=== PATIENT | male | born 1965 | race Caucasian/White ===

== ENCOUNTER 2016-03-27 13:17 | Emergency (ER) | payer BC ==
[~2016-03-27] VITALS: Ht 180.3 cm; Wt 149.8 kg
[~2016-03-27 13:17] MED LIST: NEOM1SUS21 OT; OMEG10007 PO; ONDA4TAB46 PO; TRAM-10 PO
[2016-03-27 13:33] VITALS: TEMP 37.2; Ht 180.3 cm; Wt 149.8 kg
[2016-03-27 14:15] LABS: BASO % 0.3 %; BASO ABS # 0.03 K/uL (0-0.2); COMPLETE YES; EOS % 6.4 %; HEMATOCRIT 45.1 % (42-52); IG% 0.4 %; LYMPH % 23.8 %; MEAN CELL VOLUME 93.4 fL (80-100); MEAN CORPUSCULAR HEMOGLOBIN 31.9 pg (25-34); MEAN CORPUSCULAR HGB CONC 34.1 g/dl (32-36); MEAN PLATELET VOLUME 9.9 fL (7.4-10.4); MONO % 5.4 %; NEUT % 63.7 %; PLATELET COUNT 278 K/uL (130-400); RED BLOOD COUNT 4.83 M/uL (4.7-6.1); WHITE BLOOD COUNT 9.68 K/uL (4.8-10.8)
[2016-03-27] MEDS ORDERED: LACTATED RINGER'S 1000ML 1,000 ML IV SCH (14:15)
--- NOTE | 2016-03-27 14:19 | EMERGENCY ROOM VISIT NOTE ---
History Report prepared by Tomasz: Carlos Galvan Under the Supervision of: Dr. Herve Ortiz D.O. First contact with patient: 13:58 Chief Complaint: VOMITING Stated Complaint: VOMITING,DIARRHEA Nursing Triage Summary: pt reports intestinal virus for 5 days has been taking imodium diarrhea will not stop History of Present Illness The patient is a 51 year old male who presents to the Emergency Room with complaints of persistent diarrhea beginning one week prior to arrival. He associates increased belching, abdominal pain, abdominal bloating, nausea, and vomiting with today's symptoms. The patient states he has tried taking Imodium without relief. He notes his episodes of diarrhea occurs twenty minutes after eating. The patient states he experiences episodes of diarrhea after drinking water or food. He notes he ate two plates of shrimp with rice yesterday at a [employer], and once he got home, he experienced diarrhea. His stool is described as "striaght liquid". The patient states he ate a handful of rice, 16 oz coffee, and a vitamin today. He notes he could not try to get a hold of his doctor today. The patient states he was on Keflex a couple of weeks ago. He notes he tried fasting by withholding water and food for two days earlier in the week. The patient he began feeling dehydrated, so he resumed his normal diet. Pt denies LOC, headache, fevers, chills, diaphoresis, visual changes, neck pain, chest pain, breathing difficulties, back pain, melena, hematochezia, urinary symptoms, numbness, weakness, lymphadenopathy, rash, or other complaints. Source of History: patient Onset: one week [employer] Position: other (global) Timing: other (persistent) Associated Symptoms: + abdominal pain, + diarrhea, + nausea, + vomiting Note: Associated symptoms: abdominal bloating, increased belching. Review of Systems See HPI for pertinent positives and negatives. A total of ten systems were reviewed and were otherwise negative. Past Medical & Surgical Medical Problems: (1) Herniated disc (2) Hypertension Nos (3) Osteoarthritis (4) Shingles (5) Tobacco Use Disorder Surgical Problems: (1) H/O right knee surgery Social History Problems: (1) Cervicalgia Family History No pertinent family history Social History Smoking Status: Current Some Day Smoker Alcohol Use: occasionally Marital Status: single Occupation Status: employed Current/Historical Medications Scheduled Ascorbic Acid (Vitamin C), 500 MG PO DAILY Multivitamin (Multivitamin), 1 TAB PO DAILY Allergies Coded Allergies: Sulfa Antibiotics (Verified Allergy, Unknown, shortness of breath, 03/27/16) Physical Exam Vital Signs Date Time Temp Pulse Resp B/P Pulse Ox O2 Delivery O2 Flow Rate FiO2 03/27/16 17:15 78 20 170/91 97 03/27/16 16:09 69 03/27/16 15:31 71 20 180/108 96 Room Air 03/27/16 13:33 37.2 81 20 154/91 94 Room Air Physical Exam GENERAL: Awake, alert, well-appearing, in no distress HENT: Normocephalic, atraumatic. Oropharynx unremarkable. EYES: Normal conjunctiva. Sclera non-icteric. NECK: Supple. No nuchal rigidity. FROM. No JVD. RESPIRATORY: Clear to auscultation. CARDIAC: Regular rate, normal rhythm. Extremities warm and well perfused. Pulses equal. ABDOMEN: Hyperactive bowel sounds. + Tympany. Mild right upper quadrant tenderness. No masses. RECTAL: Deferred. MUSCULOSKELETAL: Chest examination reveals no tenderness. The back is symmetrical on inspection without obvious abnormality. There is no CVA tenderness to palpation. No joint edema. LOWER EXTREMITIES: Calves are equal size bilaterally and non-tender. No edema. No discoloration. NEURO: Normal sensorium. No sensory or motor deficits noted. SKIN: No rash or jaundice noted. Medical Decision & Procedures ER Provider Diagnostic Interpretation: CT: Radiology results as stated below per my review and radiologist interpretation CT SCAN OF THE ABDOMEN AND PELVIS WITH IV CONTRAST CLINICAL HISTORY: Generalized abdominal pain. Diarrhea. COMPARISON STUDY: Abdominal CT dated 01/23/2016. TECHNIQUE: Following the IV administration of 92 cc of Optiray 320, CT scan of the abdomen and pelvis is performed from the lung bases to the proximal femora. Images are reviewed in the axial, sagittal, and coronal planes. IV contrast was administered without complication. Automated dose control exposure was utilized. CT DOSE: 1201.75 mGycm FINDINGS: Lung bases: The heart is mildly enlarged and without pericardial effusion. The lung bases are clear noting foci of bibasilar atelectasis. There is a tiny hiatal hernia. Liver: The contrast-enhanced liver is enlarged, measuring 20.6 cm in length. The liver demonstrates diffusely diminutive attenuation consistent with hepatic steatosis. There is no intrahepatic biliary ductal dilatation. The hepatic veins and portal veins are patent. Gallbladder: Contracted. Spleen: Normal in size and attenuation. Pancreas: Unremarkable. Adrenal glands: Unremarkable. Kidneys: The contrast enhanced kidneys are normal in size and without hydronephrosis. The kidneys enhance symmetrically. Abdominal vasculature: There is mild to moderate atherosclerotic calcification as well as mild ectasia of the abdominal aorta. Bowel: There is no bowel obstruction. The sigmoid colon is tortuous. Liquid stool is noted throughout the right colon. There is no colonic wall thickening or pericolonic edema. The proximal appendix is normal in appearance. The distal appendix appears distended and is filled with low density fluid, measuring up to 10 mm diameter. There is no periappendiceal inflammation. The rectum appears somewhat thickened and irregular. This is best seen on axial image #427. Peritoneum: There is no intraperitoneal free air or abdominal ascites. There is a fat-containing umbilical hernia. Lymphadenopathy: None. Pelvic viscera: The bladder, prostate, and seminal vesicles are grossly unremarkable. Skeletal structures: No lytic or blastic lesions are seen. There is moderate lumbosacral spondylosis. Degenerative change and vacuum phenomenon is noted in the sacroiliac joints. IMPRESSION: 1. There is liquid stool seen throughout the right colon. There is no associated colonic wall thickening or pericolonic inflammation. This is consistent with the reported history of a diarrheal illness. 2. Hepatomegaly and hepatic steatosis. 3. The distal appendix appears distended measuring up to 10 mm in diameter and is filled with low-attenuation material. There is no surrounding inflammatory change and there is no evidence of acute appendicitis. This is nonspecific but could represent a mucocele of the appendix. Nonemergent surgical follow-up is recommended. 4. The rectum appears thickened and irregular. This is not well assessed by CT, and although this could simply represent rectal tortuosity a follow-up colonoscopy is recommended if not recently performed to exclude the possibility of underlying lesion. 5. Mild cardiomegaly. 6. Additional findings as above. Electronically signed by: Tato Clifton M.D. 03/27/2016 3:35 PM Laboratory Results 03/27/16 14:00 Red Blood Count 4.83, Mean Corpuscular Volume 93.4, Mean Corpuscular Hemoglobin 31.9, Mean Corpuscular Hemoglobin Concent 34.1, Mean Platelet Volume 9.9, Neutrophils (%) (Auto) 63.7, Lymphocytes (%) (Auto) 23.8, Monocytes (%) (Auto) 5.4, Eosinophils (%) (Auto) 6.4, Basophils (%) (Auto) 0.3, Neutrophils # (Auto) 6.17, Lymphocytes # (Auto) 2.30, Monocytes # (Auto) 0.52, Eosinophils # (Auto) 0.62, Basophils # (Auto) 0.03 03/27/16 14:00 Test 03/27/16 14:00 03/27/16 14:15 03/27/16 16:27 White Blood Count 9.68 K/uL (4.8-10.8) Red Blood Count 4.83 M/uL (4.7-6.1) Hemoglobin 15.4 g/dL (14.0-18.0) Hematocrit 45.1 % (42-52) Mean Corpuscular Volume 93.4 fL (80-100) Mean Corpuscular Hemoglobin 31.9 pg (25-34) Mean Corpuscular Hemoglobin Concent 34.1 g/dl (32-36) Platelet Count 278 K/uL (130-400) Mean Platelet Volume 9.9 fL (7.4-10.4) Neutrophils (%) (Auto) 63.7 % Lymphocytes (%) (Auto) 23.8 % Monocytes (%) (Auto) 5.4 % Eosinophils (%) (Auto) 6.4 % Basophils (%) (Auto) 0.3 % Neutrophils # (Auto) 6.17 K/uL (1.4-6.5) Lymphocytes # (Auto) 2.30 K/uL (1.2-3.4) Monocytes # (Auto) 0.52 K/uL (0.11-0.59) Eosinophils # (Auto) 0.62 K/uL (0-0.5) Basophils # (Auto) 0.03 K/uL (0-0.2) RDW Standard Deviation 45.7 fL (36.4-46.3) RDW Coefficient of Variation 13.4 % (11.5-14.5) Immature Granulocyte % (Auto) 0.4 % Immature Granulocyte # (Auto) 0.04 K/uL (0.00-0.02) Anion Gap 9.0 mmol/L (3-11) Est Creatinine Clear Calc Drug Dose 156.6 ml/min Estimated GFR () 117.8 Estimated GFR (Non- 101.7 BUN/Creatinine Ratio 17.1 (10-20) Calcium Level 8.2 mg/dl (8.5-10.1) Total Bilirubin 0.5 mg/dl (0.2-1) Direct Bilirubin 0.1 mg/dl (0-0.2) Aspartate Amino Transf (AST/SGOT) 31 U/L (15-37) Alanine Aminotransferase (ALT/SGPT) 57 U/L (12-78) Alkaline Phosphatase 91 U/L (45-117) Total Protein 7.1 gm/dl (6.4-8.2) Albumin 3.6 gm/dl (3.4-5.0) Lipase 147 U/L (73-393) Urine Color YELLOW Urine Appearance CLEAR (CLEAR) Urine pH 5.0 (4.5-7.5) Urine Specific Sontag > 1.045 (1.000-1.030) Urine Protein NEG (NEG) Urine Glucose (UA) NEG (NEG) Urine Ketones NEG (NEG) Urine Occult Blood NEG (NEG) Urine Nitrite NEG (NEG) Urine Bilirubin NEG (NEG) Urine Urobilinogen NEG (NEG) Urine Leukocyte Esterase NEG (NEG) Date/Time Source Procedure Growth Status 03/27/16 14:15 Stool C.difficile Toxin B Gene (PCR) - Final No C. difficile toxin B gene detected Complete Laboratory results reviewed by me Medications Administered Medications (Trade) Dose Ordered Sig/Lewis Route Start Time Stop Time Status Last Admin Dose Admin Lactated Ringer's (Lr 1000ml) 1,000 ml @ 0 mls/hr Q0M IV 03/27/16 14:15 03/27/16 18:18 DC 03/27/16 14:23 999 MLS/HR Ciprofloxacin (Cipro 500MG Home Pack) 1 homepack UD ONCE PO 03/27/16 17:00 03/27/16 17:01 DC 03/27/16 16:59 1 HOMEPACK ED Course 1400: The patient was evaluated in room A3. A complete history and physical exam was performed. 1415: Ordered Lactated Ringer's 1,000 ml @ 0 mls/hr As Directed IV. 1504: Reevaluated the patient at this time, and he is doing well but feeling the same. He is getting ready to go to CT. 1610: Reevaluated the patient at this time, and he is doing well and hungry. The patient is stable and with no other complaints. 1645: I reevaluated the patient. Discussed results and discharge instructions: He verbalized understanding and agreement. The patient is ready for discharge. Medical Decision Differential diagnosis: Etiologies such as C. Diff. Colitis, appendicitis, diverticulitis, PUD, biliary pathology, UTI, pancreatitis, obstruction, mesenteric ischemia, aortic pathology , infections, inflammatory bowel disease, renal colic, as well as others were entertained. MDM: Patient is a 51-year-old male comes here with a complaint of 5 days of severe diarrhea after taking antibiotics for left labyrinthitis. He complains primarily of bloating and watery CD diarrhea happens every time he eats or drinks anything. He denies any abdominal pain. Has a good appetite. Had reflux yesterday but none today. CAT scan from was negative for signs of toxic megacolon. Some mild findings for appendicitis without acute inflammatory changes recommended follow-up. I discussed with the patient and we decided to go with 3 days of antibiotics. Patient states he is unable to afford any medication at this point has no yu we will give him 6 tablets of ciprofloxacin to go. States that he is able to get into his primary care provider on Sunday he understands he needs to follow up with primary care physician for the other abnormalities found on his CT scan. He asked for work note which was given. He remained stable in the emergency department and happy and comfortable with his care. The patient's presentation and history is c/w the impression provided. A partial list of DDx that has been considered is listed above. By the evaluation outlined above other emergent etiologies such as those listed in the differential, as well as others, were deemed relatively unlikely. The patient has been informed about today's findings. All questions were answered to satisfaction and understanding. They are pleased with the care provided. Patient education and return instructions were discussed as per my usual and the patient was discharged in stable condition as agreed upon by the patient. The patient was referred for close follow-up and informed that they will need to call to schedule appointment during the next business hours. The chart was completed utilizing a [employer] and [employer] Speech voice recognition software. Utilizing these services results in errors at time as they are imperfect. Grammatical errors, random word insertions, pronoun errors, and incomplete sentences are an occasional consequence of this system due to software limitations, ambient noise, and hardware issues. Any formal questions or concerns about the content, text, or information contained within the body of this dictation should be directly addressed to the physician for clarification. Impression Primary Impression: Colitis, acute Additional Impression: Nausea, vomiting, and diarrhea Scribe Attestation The scribe's documentation has been prepared under my direction and personally reviewed by me in its entirety. I confirm that the note above accurately reflects all work, treatment, procedures, and medical decision making performed by me. Departure Information Dispostion Home / Self-Care Referrals Medardo Priest III, CRNP (PCP) Forms HOME CARE DOCUMENTATION FORM, IMPORTANT VISIT INFORMATION, Work Instructions Patient Instructions A Signature Page, My [facility] Additional Instructions No fruit juice or dairy products for the next 3 days or until 2 days after diarrhea stops. Return to the emergency department in 12 hours if you get severe abdominal pain or diarrhea becomes persistent. Follow-up with your doctor in 2 days.
[2016-03-27 14:30] LABS: BUN/CREATININE RATIO 17.1 (10-20); CALCIUM 8.2 mg/dl (8.5-10.1); CREATININE 0.82 mg/dl (0.60-1.40); POTASSIUM 3.7 mmol/L (3.5-5.1)
[2016-03-27] MEDS ORDERED: OPTIRAY 320 IV PRN (15:30)
--- NOTE | 2016-03-27 15:37 | DIAGNOSTIC IMAGING REPORT ---
CT SCAN OF THE ABDOMEN AND PELVIS WITH IV CONTRAST CLINICAL HISTORY: Generalized abdominal pain. Diarrhea. COMPARISON STUDY: Abdominal CT dated 01/23/2016. TECHNIQUE: Following the IV administration of 92 cc of Optiray 320, CT scan of the abdomen and pelvis is performed from the lung bases to the proximal femora. Images are reviewed in the axial, sagittal, and coronal planes. IV contrast was administered without complication. Automated dose control exposure was utilized. CT DOSE: 1201.75 mGycm FINDINGS: Lung bases: The heart is mildly enlarged and without pericardial effusion. The lung bases are clear noting foci of bibasilar atelectasis. There is a tiny hiatal hernia. Liver: The contrast-enhanced liver is enlarged, measuring 20.6 cm in length. The liver demonstrates diffusely diminutive attenuation consistent with hepatic steatosis. There is no intrahepatic biliary ductal dilatation. The hepatic veins and portal veins are patent. Gallbladder: Contracted. Spleen: Normal in size and attenuation. Pancreas: Unremarkable. Adrenal glands: Unremarkable. Kidneys: The contrast enhanced kidneys are normal in size and without hydronephrosis. The kidneys enhance symmetrically. Abdominal vasculature: There is mild to moderate atherosclerotic calcification as well as mild ectasia of the abdominal aorta. Bowel: There is no bowel obstruction. The sigmoid colon is tortuous. Liquid stool is noted throughout the right colon. There is no colonic wall thickening or pericolonic edema. The proximal appendix is normal in appearance. The distal appendix appears distended and is filled with low density fluid, measuring up to 10 mm diameter. There is no periappendiceal inflammation. The rectum appears somewhat thickened and irregular. This is best seen on axial image #427. Peritoneum: There is no intraperitoneal free air or abdominal ascites. There is a fat-containing umbilical hernia. Lymphadenopathy: None. Pelvic viscera: The bladder, prostate, and seminal vesicles are grossly unremarkable. Skeletal structures: No lytic or blastic lesions are seen. There is moderate lumbosacral spondylosis. Degenerative change and vacuum phenomenon is noted in the sacroiliac joints. IMPRESSION: 1. There is liquid stool seen throughout the right colon. There is no associated colonic wall thickening or pericolonic inflammation. This is consistent with the reported history of a diarrheal illness. 2. Hepatomegaly and hepatic steatosis. 3. The distal appendix appears distended measuring up to 10 mm in diameter and is filled with low-attenuation material. There is no surrounding inflammatory change and there is no evidence of acute appendicitis. This is nonspecific but could represent a mucocele of the appendix. Nonemergent surgical follow-up is recommended. 4. The rectum appears thickened and irregular. This is not well assessed by CT, and although this could simply represent rectal tortuosity a follow-up colonoscopy is recommended if not recently performed to exclude the possibility of underlying lesion. 5. Mild cardiomegaly. 6. Additional findings as above. Electronically signed by: Tato Clifton M.D. 03/27/2016 3:35 PM
[2016-03-27 16:43] LABS: URINE APPEARANCE CLEAR (CLEAR); URINE BILIRUBIN NEG (NEG); URINE COLOR YELLOW; URINE NITRITE NEG (NEG); URINE SPECIFIC GRAVITY > 1.045 (1.000-1.030); UROBILINOGEN NEG (NEG)
[2016-03-27 16:50] LABS: MANUAL MICROSCOPIC REQUIRED? NO; REVIEW REQ? NO
[2016-03-27] MEDS ORDERED: CIPROFLOXACIN 500MG HOME PACK PO ONE (17:00)
[2016-03-27 17:15] VITALS: BP 170/91; PULSE 78; O2SAT 97
[2016-03-30 12:53] LABS: CRYPTOSPORIDIUM AG TC 37213 NOT DETECTED (NOT DETECTED); ISOSPORA+CYCLOSPORA NOT DETECTED; O&P GIARDIA AG NOT DETECTED (NOT DETECTED); O&P SOURCE OTHER-STOOL
[2016-06-07] MEDS ORDERED: ASPEC81 PO (16:30)
[2016-06-07] MEDS ORDERED: METO-478 PO (16:30)
[2016-06-26] MEDS ORDERED: FURO20TA PO (08:11)
[2016-11-13] MEDS ORDERED: MULT-506 PO (10:50)
[2016-11-13] MEDS ORDERED: ASCO500T3 PO (17:59)
== END 2016-03-27 17:15 | disposition home or self-care (01) ==
LOC: C.EDB 13:18 → C.EDA 17:15
DX: K52.9 Noninfective gastroenteritis and colitis, unspecified (principal); I10 Essential (primary) hypertension; F17.210 Nicotine dependence, cigarettes, uncomplicated

== ENCOUNTER 2016-04-01 20:00 | Emergency (ER) | payer BC, OTHER ==
[~2016-04-01] VITALS: Ht 180.3 cm; Wt 133.9 kg
[2016-04-01 20:05] VITALS: TEMP 37.1; Ht 180.3 cm; Wt 133.9 kg
[2016-04-01 20:38] LABS: BASO % 0.3 %; BASO ABS # 0.03 K/uL (0-0.2); COMPLETE YES; EOS % 5.8 %; HEMATOCRIT 43.2 % (42-52); IG% 0.5 %; LYMPH % 22.9 %; LYMPH ABS # 2.32 K/uL (1.2-3.4); MEAN CELL VOLUME 93.5 fL (80-100); MEAN CORPUSCULAR HEMOGLOBIN 32.7 pg (25-34); MEAN PLATELET VOLUME 9.9 fL (7.4-10.4); MONO % 8.9 %; NEUT % 61.6 %; PLATELET COUNT 268 K/uL (130-400); RED BLOOD COUNT 4.62 M/uL (4.7-6.1); WHITE BLOOD COUNT 10.14 K/uL (4.8-10.8)
[2016-04-01 20:45] LABS: URINE APPEARANCE CLEAR (CLEAR); URINE BILIRUBIN NEG (NEG); URINE COLOR DK YELLOW; URINE NITRITE NEG (NEG); URINE SPECIFIC GRAVITY 1.024 (1.000-1.030); UROBILINOGEN NEG (NEG); ZZUR CULT IF INDIC CLEAN CATCH NO
[2016-04-01 20:47] LABS: MANUAL MICROSCOPIC REQUIRED? NO; REVIEW REQ? NO
[2016-04-01 21:00] LABS: BUN/CREATININE RATIO 15.1 (10-20); CALCIUM 8.7 mg/dl (8.5-10.1); CREATININE 0.88 mg/dl (0.60-1.40); POTASSIUM 3.9 mmol/L (3.5-5.1)
[2016-04-01 21:02] LABS: ALB/GLOB RATIO 1.1 (0.9-2)
--- NOTE | 2016-04-01 21:44 | EMERGENCY ROOM VISIT NOTE ---
History First contact with patient: 20:08 Chief Complaint: FLANK PAIN Stated Complaint: RT FLANK/BACK PAIN History of Present Illness The patient is a 51 year old male who presents to the Emergency Room with complaints of right flank pain. The patient states that he was here last week for "the stomach flu." He states that he was put on an antibiotic at home. He does report that he had a CT while here which apparently showed some findings with his appendix. He reports that his diarrhea and vomiting has improved. He reports that yesterday he woke up with a severe, "diabolical" pain in the right side of his back which radiated into the right side of his abdomen. He states the pain is better when he is standing up and he has 0/10 pain while walking. He reports that while sitting, his pain as a 6/10. He is concerned that he could have an appendicitis. He states that he ate a sandwich tonight and this did not worsen his pain. The pain is worse with twisting movements of his back. He describes it as a feeling of pressure. He denies any urinary symptoms , vomiting, changes in bowel movements, fevers or chills. Review of Systems A complete 10-point Review of Systems was discussed with the patient, with pertinent positives and negatives listed in the History of Present Illness. All remaining Review of Systems questions can be considered negative unless otherwise specified. Past Medical/Surgical History Medical Problems: (1) Herniated disc (2) Hypertension Nos (3) Osteoarthritis (4) Shingles (5) Tobacco Use Disorder Surgical Problems: (1) H/O right knee surgery Social History Problems: (1) Cervicalgia Family History No pertinent family history Social History Smoking Status: Current Some Day Smoker Alcohol Use: occasionally Marital Status: single Occupation Status: employed Current/Historical Medications Scheduled Ascorbic Acid (Vitamin C), 500 MG PO DAILY Fish Oil ([place]-3), 1 CAP PO DAILY Multivitamin (Multivitamin), 1 TAB PO DAILY Allergies Coded Allergies: Sulfa Antibiotics (Verified Allergy, Unknown, shortness of breath, 04/01/16) Physical Exam Vital Signs Date Time Temp Pulse Resp B/P Pulse Ox O2 Delivery O2 Flow Rate FiO2 04/01/16 21:57 84 16 154/94 97 04/01/16 20:05 37.1 88 20 177/96 98 Room Air Physical Exam VITALS: Vitals are noted on the nurse's note and reviewed by myself. Vital signs stable. GENERAL: This is a 51-year-old male, in no acute distress, nondiaphoretic, well- developed well-nourished. SKIN: Capillary reflex less than 2 seconds. HEART: Regular rate and rhythm without murmurs gallops or rubs. LUNGS: Clear to auscultation bilaterally without wheezes, rales or rhonchi. No retractions or accessory muscle use. ABDOMEN: Positive bowel sounds x 4. Mild tenderness to palpation of the right mid abdomen. No guarding or rebound tenderness. MUSCULOSKELETAL: No CVA tenderness. NEURO: Patient was alert and oriented to person place and time. Normal sensation to light and sharp touch. Deep tendon reflexes 2+ throughout. No focal neurological deficits. Medical Decision & Procedures Laboratory Results 04/01/16 20:20 Red Blood Count 4.62, Mean Corpuscular Volume 93.5, Mean Corpuscular Hemoglobin 32.7, Mean Corpuscular Hemoglobin Concent 35.0, Mean Platelet Volume 9.9, Neutrophils (%) (Auto) 61.6, Lymphocytes (%) (Auto) 22.9, Monocytes (%) (Auto) 8.9, Eosinophils (%) (Auto) 5.8, Basophils (%) (Auto) 0.3, Neutrophils # (Auto) 6.25, Lymphocytes # (Auto) 2.32, Monocytes # (Auto) 0.90, Eosinophils # (Auto) 0.59, Basophils # (Auto) 0.03 04/01/16 20:20 Test 04/01/16 00:00 04/01/16 20:20 Urine Color DK YELLOW Urine Appearance CLEAR (CLEAR) Urine pH 5.0 (4.5-7.5) Urine Specific Simpson 1.024 (1.000-1.030) Urine Protein NEG (NEG) Urine Glucose (UA) NEG (NEG) Urine Ketones NEG (NEG) Urine Occult Blood NEG (NEG) Urine Nitrite NEG (NEG) Urine Bilirubin NEG (NEG) Urine Urobilinogen NEG (NEG) Urine Leukocyte Esterase NEG (NEG) White Blood Count 10.14 K/uL (4.8-10.8) Red Blood Count 4.62 M/uL (4.7-6.1) Hemoglobin 15.1 g/dL (14.0-18.0) Hematocrit 43.2 % (42-52) Mean Corpuscular Volume 93.5 fL (80-100) Mean Corpuscular Hemoglobin 32.7 pg (25-34) Mean Corpuscular Hemoglobin Concent 35.0 g/dl (32-36) Platelet Count 268 K/uL (130-400) Mean Platelet Volume 9.9 fL (7.4-10.4) Neutrophils (%) (Auto) 61.6 % Lymphocytes (%) (Auto) 22.9 % Monocytes (%) (Auto) 8.9 % Eosinophils (%) (Auto) 5.8 % Basophils (%) (Auto) 0.3 % Neutrophils # (Auto) 6.25 K/uL (1.4-6.5) Lymphocytes # (Auto) 2.32 K/uL (1.2-3.4) Monocytes # (Auto) 0.90 K/uL (0.11-0.59) Eosinophils # (Auto) 0.59 K/uL (0-0.5) Basophils # (Auto) 0.03 K/uL (0-0.2) RDW Standard Deviation 46.1 fL (36.4-46.3) RDW Coefficient of Variation 13.5 % (11.5-14.5) Immature Granulocyte % (Auto) 0.5 % Immature Granulocyte # (Auto) 0.05 K/uL (0.00-0.02) Anion Gap 8.0 mmol/L (3-11) Est Creatinine Clear Calc Drug Dose 137.1 ml/min Estimated GFR () 114.5 Estimated GFR (Non- 98.8 BUN/Creatinine Ratio 15.1 (10-20) Calcium Level 8.7 mg/dl (8.5-10.1) Total Bilirubin 0.3 mg/dl (0.2-1) Aspartate Amino Transf (AST/SGOT) 35 U/L (15-37) Alanine Aminotransferase (ALT/SGPT) 69 U/L (12-78) Alkaline Phosphatase 118 U/L (45-117) Total Protein 6.7 gm/dl (6.4-8.2) Albumin 3.5 gm/dl (3.4-5.0) Globulin 3.2 gm/dl (2.5-4.0) Albumin/Globulin Ratio 1.1 (0.9-2) Lipase 332 U/L (73-393) Medical Decision Differential diagnosis includes appendicitis, renal calculus, pyelonephritis, musculoskeletal pain, colitis, gastritis, among others. The patient was evaluated as above. Labs were drawn and IV access was obtained. Previous records were reviewed. The patient was here 5 days ago and had a CT scan at that time which showed a mucocele of the appendix, but no findings consistent with acute appendicitis. The labs today were unchanged from labs performed at that time. The patient does not have a leukocytosis. He is afebrile. There are no physical exam findings consistent with appendicitis. I did speak with the general surgeon on-call, who was familiar with the patient. He did not feel that any repeat imaging was necessary at this time. The appendix will be removed on an elective basis. The patient is well-appearing and is not in significant pain. I do feel he is stable for discharge home and follow-up with his primary care provider and the appropriate specialists. Findings were discussed with the patient. Case was discussed with Dr. Garcia, ED attending physician, who agreed with my assessment and treatment plan. The patient verbalizes understanding of the assessment and treatment plan and was discharged home in good condition. Impression Primary Impression: Right flank pain Departure Information Dispostion Home / Self-Care Condition GOOD Referrals Medardo Priest III, CRNP (PCP) Patient Instructions A Signature Page, My [facility] Additional Instructions You have been treated in the Emergency Department your Abdominal Pain. Laboratory results have ruled out any emergent causes for your abdominal pain which would warrant admission or surgery. For pain control, you can use the following [id number] medicines (if >12 yo): - Regular strength (325mg/tab) Tylenol (acetaminophen) 2 tabs every 4-6 hours as needed. Do not exceed 12 tablets in a 24 hour period. Avoid taking more than 4 grams (4000 mg) of Tylenol per day. This includes any other sources of acetaminophen you may take on a regular basis. - Regular strength (200 mg/tab) Advil (ibuprofen) 1-2 tabs every 4-6 hours as needed. Do not exceed a dose of 3200 mg per day. Follow-up with your specialist and family doctor as scheduled. You do have an abnormality of the appendix and the appendix will need to be removed in the future. This is not an emergent surgical procedure. Return to the emergency department if your symptoms persist despite treatment plan outlined above or if the following symptoms occur: increased fevers, chills , worsening nausea/vomiting, blood in your stool or urine.
[2016-04-01 21:57] VITALS: BP 154/94; PULSE 84; O2SAT 97
[2016-04-02] MEDS ORDERED: TRAM-10 PO (20:54)
[2016-06-07] MEDS ORDERED: METO1TAB31 PO (16:30)
[2016-06-07] MEDS ORDERED: ASPEC81 PO (16:30)
[2016-06-26] MEDS ORDERED: FURO20TA PO (08:11)
[2016-11-13] MEDS ORDERED: MULT-506 PO (10:50)
[2016-11-13] MEDS ORDERED: ASCO500T3 PO (17:59)
== END 2016-04-01 21:58 | disposition home or self-care (01) ==
LOC: C.EDB 20:01 → C.EDC 21:58
DX: R10.9 Unspecified abdominal pain (principal); I10 Essential (primary) hypertension; M19.90 Unspecified osteoarthritis, unspecified site; F17.200 Nicotine dependence, unspecified, uncomplicated; Z98.890 Other specified postprocedural states; Z88.2 Allergy status to sulfonamides

== ENCOUNTER 2016-04-02 18:46 | Emergency (ER) | payer BC ==
[~2016-04-02] VITALS: Ht 180.3 cm; Wt 151.0 kg
[2016-04-02 18:48] VITALS: TEMP 36.8; Ht 180.3 cm; Wt 151.0 kg
[2016-04-02] MEDS ORDERED: KETOROLAC TROMETHAMINE 30 MG/ML VIAL IV STA (19:07)
--- NOTE | 2016-04-02 19:23 | EMERGENCY ROOM VISIT NOTE ---
History Report prepared by Tomasz: Cedric Campbell Under the Supervision of: Dr. Tato Rodriguez M.D. First contact with patient: 18:59 Chief Complaint: FLANK PAIN Stated Complaint: RT FLANK & LOWER RT BACK PAIN History of Present Illness The patient is a 51 year old male who presents to the Emergency Room with complaints of worsening right flank pain for the past three days. The pain is worsened with movement. The patient tried taking Advil, which has not helped. The patient denies abdominal pain, or testicular / scrotal pain. He denies any injury that could have caused his pain. The patient was in the ED yesterday for the flank pain, and he had unremarkable lab work. He was in the ED on March 27 for diarrhea that had persisted for one week. During this visit, he had a CT scan that showed colitis and distal enlargement of his appendix without inflammation. The patient's diarrhea is now completely resolved. He also denies any abdominal pain. He was referred to the ED tonight by urgent care to rule out appendicitis. He had gone to urgent care for the right flank pain and a note to be off of work as movement worsens his pain. He was surprised when he was referred to the ED. Source of History: patient Onset: three days Position: back (right flank) Timing: worsening Modifying Factors (Worsening): movement Associated Symptoms: No diarrhea Note: Patient denies testicular or scrotal pain. Review of Systems See HPI for pertinent positives & negatives. A total of 10 systems reviewed and were otherwise negative. Past Medical & Surgical Medical Problems: (1) Herniated disc (2) Hypertension Nos (3) Osteoarthritis (4) Shingles (5) Tobacco Use Disorder Surgical Problems: (1) H/O right knee surgery Social History Problems: (1) Cervicalgia Family History No pertinent family history Social History Smoking Status: Current Every Day Smoker Alcohol Use: occasionally Marital Status: single Occupation Status: employed Current/Historical Medications Scheduled Ascorbic Acid (Vitamin C), 500 MG PO DAILY Fish Oil ([place]-3), 1 CAP PO DAILY Multivitamin (Multivitamin), 1 TAB PO DAILY Scheduled PRN Ibuprofen (Advil), 200 MG PO Q6 PRN for Pain Tramadol (Ultram), 50-100 MG PO Q4H PRN for Pain Allergies Coded Allergies: Sulfa Antibiotics (Verified Allergy, Unknown, shortness of breath, 04/02/16) Physical Exam Vital Signs Date Time Temp Pulse Resp B/P Pulse Ox O2 Delivery O2 Flow Rate FiO2 04/02/16 20:44 74 20 166/91 98 Room Air 04/02/16 18:48 36.8 85 18 184/102 96 Room Air Physical Exam GENERAL: Patient is in no acute distress. HEENT: No acute trauma, normocephalic atraumatic, mucous membranes moist, no nasal congestion, no scleral icterus. NECK: No stridor, no adenopathy, no meningismus, trachea is midline. LUNGS: Clear to auscultation bilaterally, no wheeze, no rhonchi, breath sounds equal. HEART: Without murmurs gallops or rubs, regular rate and rhythm. ABDOMEN: Soft, absolutely no tenderness to the right lower quadrant, bowel sounds positive, no hernias, no peritonitis. BACK: Tender along the right lumbar musculature. EXTREMITIES: No cyanosis or edema, full range of motion of all the joints without pain or difficulty, no signs for acute trauma. NEUROLOGIC: Oriented x 3, no acute motor or sensory deficits, no focal weakness. SKIN: No rash, no jaundice, no diaphoresis. Medical Decision & Procedures Laboratory Results 04/02/16 19:25 Red Blood Count 4.88, Mean Corpuscular Volume 94.7, Mean Corpuscular Hemoglobin 32.0, Mean Corpuscular Hemoglobin Concent 33.8, Mean Platelet Volume 10.1, Neutrophils (%) (Auto) 65.6, Lymphocytes (%) (Auto) 21.5, Monocytes (%) (Auto) 7.6, Eosinophils (%) (Auto) 4.7, Basophils (%) (Auto) 0.3, Neutrophils # (Auto) 6.26, Lymphocytes # (Auto) 2.05, Monocytes # (Auto) 0.73, Eosinophils # (Auto) 0.45, Basophils # (Auto) 0.03 Test 04/02/16 19:25 White Blood Count 9.55 K/uL (4.8-10.8) Red Blood Count 4.88 M/uL (4.7-6.1) Hemoglobin 15.6 g/dL (14.0-18.0) Hematocrit 46.2 % (42-52) Mean Corpuscular Volume 94.7 fL (80-100) Mean Corpuscular Hemoglobin 32.0 pg (25-34) Mean Corpuscular Hemoglobin Concent 33.8 g/dl (32-36) Platelet Count 270 K/uL (130-400) Mean Platelet Volume 10.1 fL (7.4-10.4) Neutrophils (%) (Auto) 65.6 % Lymphocytes (%) (Auto) 21.5 % Monocytes (%) (Auto) 7.6 % Eosinophils (%) (Auto) 4.7 % Basophils (%) (Auto) 0.3 % Neutrophils # (Auto) 6.26 K/uL (1.4-6.5) Lymphocytes # (Auto) 2.05 K/uL (1.2-3.4) Monocytes # (Auto) 0.73 K/uL (0.11-0.59) Eosinophils # (Auto) 0.45 K/uL (0-0.5) Basophils # (Auto) 0.03 K/uL (0-0.2) RDW Standard Deviation 46.6 fL (36.4-46.3) RDW Coefficient of Variation 13.4 % (11.5-14.5) Immature Granulocyte % (Auto) 0.3 % Immature Granulocyte # (Auto) 0.03 K/uL (0.00-0.02) Laboratory results reviewed by me. Medications Administered Medications (Trade) Dose Ordered Sig/Lewis Route Start Time Stop Time Status Last Admin Dose Admin Ketorolac Tromethamine (Toradol Inj) 30 mg NOW STAT IV 04/02/16 19:07 04/02/16 19:12 DC 04/02/16 19:26 30 MG Tramadol HCl (Ultram Home Pack) 1 homepa UD ONCE PO 04/02/16 21:00 04/02/16 21:01 DC 04/02/16 20:58 1 HOMEPACK ED Course 1900: The patient was evaluated in room A3. A complete history and physical exam was performed. 1906: Toradol 30 mg IV. 2007: We are still waiting on labs. The patient asked if he could eat something. 2013: The urine dipstick was negative for infection or blood. 2046: Reassessed the patient. Explained everything to him. He verbalized understanding of the treatment plan. The patient is ready for discharge. 2054: The prescription drug monitoring program was evaluated for this patient. No issues identified. 2100: Tramadol PO home pack. Medical Decision Differential diagnosis includes musculoskeletal pain, nerve impingement, appendicitis, hernia, renal stone, UTI. There is no leukocytosis or concerning anemia. Urine dip does not show hematuria or infection. On my exam, the patient was not febrile or toxic. There was no peritonitis. He had no pain to palpate the abdomen, in particular , no pain to palpate the right lower quadrant. The patient did have some pain to palpate the right lumbar musculature. His pain worsens with movement. The patient's pain is likely musculoskeletal. He did receive IV Toradol. He is being discharged on tramadol which has helped him before. He was given a few days off of work. He will follow with surgery and GI as scheduled. He will return to the ER for worsening symptoms or pain. [place] Drug Monitoring Program Search Results: patient reviewed within database, no issues identified Impression Primary Impression: Right low back pain Scribe Attestation The scribe's documentation has been prepared under my direction and personally reviewed by me in its entirety. I confirm that the note above accurately reflects all work, treatment, procedures, and medical decision making performed by me. Departure Information Dispostion Home / Self-Care Prescriptions Tramadol (Ultram) 50 Mg Tab 50-100 MG PO Q4H Y for Pain, #12 TAB Prov: Tato Rodriguez M.D. 04/02/16 Referrals Medardo Priest III, CRNP (PCP) Forms HOME CARE DOCUMENTATION FORM, IMPORTANT VISIT INFORMATION, Work Instructions Patient Instructions A Signature Page, My [employer] Additional Instructions rest heat to the sore area massage and gentle stretching should help follow with your doctor or work doctor for when you can return to work motrin or tylenol for mild pain ultram 1-2 tab every 4 hours for more severe pain return for fever, worsening symptoms or abdominal pain see surgery and GI as scheduled
[2016-04-02 20:20] LABS: BASO % 0.3 %; BASO ABS # 0.03 K/uL (0-0.2); COMPLETE YES; EOS % 4.7 %; HEMATOCRIT 46.2 % (42-52); IG% 0.3 %; LYMPH % 21.5 %; LYMPH ABS # 2.05 K/uL (1.2-3.4); MEAN CELL VOLUME 94.7 fL (80-100); MEAN CORPUSCULAR HGB CONC 33.8 g/dl (32-36); MEAN PLATELET VOLUME 10.1 fL (7.4-10.4); MONO % 7.6 %; NEUT % 65.6 %; PLATELET COUNT 270 K/uL (130-400); RED BLOOD COUNT 4.88 M/uL (4.7-6.1); WHITE BLOOD COUNT 9.55 K/uL (4.8-10.8)
[2016-04-02 20:44] VITALS: BP 166/91; PULSE 74; O2SAT 98
[2016-04-02] MEDS ORDERED: TRAM-10 PO (20:54)
[2016-04-02] MEDS ORDERED: TRAMADOL HCL 50 MG HOME PACK PO ONE (21:00)
[2016-06-07] MEDS ORDERED: ASPEC81 PO (16:30)
[2016-06-07] MEDS ORDERED: METO1TAB31 PO (16:30)
[2016-06-26] MEDS ORDERED: FURO20TA PO (08:11)
[2016-11-13] MEDS ORDERED: MULT-506 PO (10:50)
[2016-11-13] MEDS ORDERED: ASCO500T3 PO (17:59)
== END 2016-04-02 21:03 | disposition home or self-care (01) ==
LOC: C.EDB 18:47 → C.EDA 21:03
DX: M54.5 Low back pain (principal); I10 Essential (primary) hypertension; M19.90 Unspecified osteoarthritis, unspecified site; F17.200 Nicotine dependence, unspecified, uncomplicated

== ENCOUNTER 2016-04-07 16:47 | Emergency (ER) | payer BC ==
[~2016-04-07] VITALS: Ht 180.3 cm; Wt 151.6 kg
[~2016-04-07 16:47] MED LIST changes: -NEOM1SUS21 OT; -OMEG10007 PO; -ONDA4TAB46 PO
[2016-04-07 16:52] VITALS: BP 163/99; PULSE 89; TEMP 36.9; O2SAT 94; Ht 180.3 cm; Wt 151.6 kg
[2016-04-07] MEDS ORDERED: MELO15TA4 PO (17:44)
[2016-04-07] MEDS ORDERED: RBX500 PO (17:44)
[2016-04-07] MEDS ORDERED: ULT50 PO (17:44)
[2016-04-07] MEDS ORDERED: IBUP-1050 PO (19:40)
[2016-04-07] MEDS ORDERED: OMEG10007 PO (20:46)
--- NOTE | 2016-04-09 10:40 | EMERGENCY ROOM VISIT NOTE ---
ED Visit Note First contact with patient: 16:58 Chief Complaint: Right eye pain. History of Present Illness: Mr. Jade is a 51-year-old white male who ambulates into the ED complaining of right eye. Patient reports approximately 3 hours before he arrived in the emergency department he was walking his dog he reports he slipped and fell on my and struck the right eye on something that was on the ground. He reports before the fall he was not lightheaded or dizzy, the time of the fall he had no loss of consciousness and since the fall he reports he is not having any signs of head injury. Currently he is complaining of right eye pain. He describes his pain as a throbbing and stinging sensation. He rates his discomfort 4/10. His pain is nonradiating. He has not identified any aggravating or alleviating factors related to the pain. He has not taken any medications for pain prior to arrival at the hospital. Associated with his pain he has noted redness over the lateral and inferior portion of the eye. He denies any headache, dizziness , lightheadedness, visual changes, light sensitivity, tearing, neck pain, nausea /vomiting. Review of Systems: As noted above in history of present illness. Past Medical History: (1) Herniated disc (2) Hypertension Nos (3) Osteoarthritis (4) Shingles (5) Tobacco Use Disorder Surgical Problems: (1) H/O right knee surgery Social History Problems: (1) Cervicalgia Current Medications: Medications Dose Route/Sig Max Daily Dose Days Date Category Dose Instructions Tramadol HCl 50 Mg Tab 50-100 Mg PO Q4H PRN 04/07/16 Reported Methocarbamol 500 Mg Tab 500 Mg PO QID PRN 04/07/16 Reported Meloxicam 15 Mg Tab 15 Mg PO DAILY 04/07/16 Reported Advil (Ibuprofen) 200 Mg Tab 200 Mg PO UD PRN 04/02/16 Reported TAKE PER PACKAGE DIRECTIONS [place]-3 (Fish Oil) 1 Ea Cap 1 Cap PO DAILY 04/01/16 Reported Vitamin C (Ascorbic Acid) 500 Mg Tab 500 Mg PO DAILY 08/15/15 Reported Multivitamin (Multivitamins) Tab 1 Tab PO DAILY 04/19/15 Reported Allergies to Medications: Sulfa. Social History: Patient is currently employed; he feels safe in his home environment; he admits to tobacco use. Physical Examination: Vital Signs: Date Time Temp Pulse Resp B/P Pulse Ox O2 Delivery O2 Flow Rate FiO2 04/07/16 16:52 36.9 89 18 163/99 94 Room Air GENERAL: 51-year-old male in mild distress due to pain, nontoxic-appearing, afebrile and hemodynamically stable. NEUROLOGICAL: Awake, alert and oriented to person, place and time. Answering questions appropriately and following commands. Normal gait. Good hand eye coordination. No focal motor sensory deficits. Cranial nerves II through XII grossly intact. Good short-term and long-term recall. SKIN: Warm, dry and pink. No soft tissue trauma. HEENT: Atraumatic and normocephalic. Skull: No bony deformity/depressions, nontender. No raccoon's eyes or wood signs. No drainage from ears and nostril; no hemotympanum. Face: No bony tenderness, swelling or ecchymosis. PERRLA. EOMI without nystagmus. Sclera moderate size subconjunctival hemorrhage over the lateral and inferior portion but not extending over the iris. Conjunctiva pink without drainage. No light sensitivity. Funduscopic examination is unremarkable with no signs of increased intracranial pressure. Visual acuity: 20/25 bilaterally without correction. No foreign bodies noted under the eyelids are embedded in the cornea. Anterior chamber is clear. On slitlamp examination with staining there are no corneal abrasions or bodies noted. No malocclusion. No intraoral trauma. Speech normal. BACK: No tenderness over the bony cervical and thoracic spine. Full range of motion of the cervical spine. ED Course: Patient is assessed as noted above. Alcaine was used to anesthetize the eyes for examination. Patient was educated about tonight's findings and instructed on his treatment plan; he verbalizes understanding and agreement with this plan. Clinical Impression: Traumatic right subconjunctival hemorrhage. Disposition: Patient discharged home in stable condition; prior to departure he was reassessed and subjectively reported that he was pain and symptom-free. Plan: Patient was encouraged to continue his current medications as needed for pain and also use 650 mg of acetaminophen every 6 hours. Patient was encouraged to use cool compresses over his eye as needed. Patient was encouraged to follow-up with family doctor for his eye doctor doctor for recheck if no better in 5-7 days. Patient was educated on signs of head injury. Patient was encouraged return the ED for uncontrolled pain, visual changes, signs of head injury or any new/concerning
[2016-06-07] MEDS ORDERED: ASPEC81 PO (16:30)
[2016-06-07] MEDS ORDERED: METO1TAB31 PO (16:30)
[2016-06-26] MEDS ORDERED: FURO20TA PO (08:11)
[2016-11-13] MEDS ORDERED: MULT-506 PO (10:50)
[2016-11-13] MEDS ORDERED: ASCO500T3 PO (17:59)
== END 2016-04-07 17:42 | disposition home or self-care (01) ==
LOC: C.EDB 16:52 → C.EDD 17:42
DX: H11.31 Conjunctival hemorrhage, right eye (principal); W01.10XA Fall on same level from slipping, tripping and stumbling with subsequent striking against unspecified object, initial encounter; Y93.K1 Activity, walking an animal; I10 Essential (primary) hypertension; F17.200 Nicotine dependence, unspecified, uncomplicated; Z98.890 Other specified postprocedural states; Z88.2 Allergy status to sulfonamides

== ENCOUNTER 2016-04-09 14:48 | Emergency (ER) | payer BC ==
[~2016-04-09] VITALS: Ht 180.3 cm; Wt 151.2 kg
[~2016-04-09 14:48] MED LIST changes: +IBUP-1050 PO; +MELO15TA4 PO; +OMEG10007 PO; +RBX500 PO; -TRAM-10 PO; +ULT50 PO
[2016-04-09 14:51] VITALS: TEMP 37; Ht 180.3 cm; Wt 151.2 kg
[2016-04-09] MEDS ORDERED: CIPROFLOXACIN HCL 0.3% OP SOLN 2.5 ML BTL OP ONE (15:30)
[2016-04-09 15:35] VITALS: BP 170/92; PULSE 83; O2SAT 94
--- NOTE | 2016-04-09 21:23 | EMERGENCY ROOM VISIT NOTE ---
History First contact with patient: 15:04 Chief Complaint: EYE ASSESSMENT Stated Complaint: EYE ASSESSMENT History of Present Illness The patient is a 51 year old male who presents to the Emergency Room with complaints of persistent redness of his right eye. The patient was seen and evaluated the past few days here in this department. Evidently he had a fall outside, where he struck his right eye. He subsequently developed a subconjunctival hemorrhage. The patient has been applying ice and taking over- the-counter analgesics for his symptoms. The patient does not have new injury or trauma, but feels like there may be something in his eye. The patient has not had decreased or worsening vision. No other symptoms are reported. He rates his discomfort a 5/10. Review of Systems More than 10 systems were reviewed and otherwise negative with the exception of history of present illness. Past Medical/Surgical History Medical Problems: (1) Herniated disc (2) Hypertension Nos (3) Osteoarthritis (4) Shingles (5) Tobacco Use Disorder Surgical Problems: (1) H/O right knee surgery Social History Problems: (1) Cervicalgia Family History No pertinent family history Social History Smoking Status: Light Tobacco Smoker Alcohol Use: occasionally Marital Status: single Occupation Status: employed Current/Historical Medications Scheduled Ascorbic Acid (Vitamin C), 500 MG PO DAILY Fish Oil ([place]-3), 1 CAP PO DAILY Meloxicam (Meloxicam), 15 MG PO DAILY Multivitamin (Multivitamin), 1 TAB PO DAILY Scheduled PRN Ibuprofen (Advil), 200 MG PO UD PRN for Pain Methocarbamol (Methocarbamol), 500 MG PO QID PRN for Muscle Spasm Tramadol HCl (Tramadol HCl), 50-100 MG PO Q4H PRN for Pain Allergies Coded Allergies: Sulfa Antibiotics (Verified Allergy, Unknown, shortness of breath, 04/09/16 ) Physical Exam Vital Signs Date Time Temp Pulse Resp B/P Pulse Ox O2 Delivery O2 Flow Rate FiO2 04/09/16 15:35 83 17 170/92 94 04/09/16 14:51 37.0 88 18 212/96 94 Room Air Right Eye Acuity: 20/20 Left Eye Acuity: 20/40 Pain Rating (0-10): 2.0 Physical Exam VITALS: Vitals are noted on the nurse's note and reviewed by myself. Vital signs with elevated blood pressure in triage that did come down without intervention. Visual acuity as above GENERAL: Well-developed, well-nourished, white male, who is in no acute distress and resting comfortably. Patient is cooperative with the examination. HEAD: Normocephalic atraumatic. EARS: External ear normal. External auditory canals clear, tympanic membranes pearly gomez without erythema or effusion bilaterally. EYES: Pupils equal round and reactive to light and accommodation. Conjunctivae on the right is with a subconjunctival hemorrhage. Slit lamp exam does not show evidence of foreign body. No obvious abrasion on Flourescein exam. Normal pressures bilateral. NOSE: Patent, turbinates without inflammation or discharge. MOUTH: Mucous membranes moist. Tonsils are not enlarged. Pharynx without erythema, blood, or exudate. Uvula midline. Airway patent. NECK: Supple without nuchal rigidity. No lymphadenopathy. No thyromegaly. Cervical spine is nontender. HEART: Regular rate and rhythm without murmurs gallops or rubs. LUNGS: Clear to auscultation bilaterally without wheezes, rales or rhonchi. No retractions or accessory muscle use. Medical Decision & Procedures Medications Administered Medications (Trade) Dose Ordered Sig/Lewis Route Start Time Stop Time Status Last Admin Dose Admin Ciprofloxacin HCl (Ciprofloxacin 0.3% Op Soln) 2 drops NOW ONCE OP 04/09/16 15:30 04/09/16 15:31 DC 04/09/16 15:30 2 DROPS ED Course Physical exam and history were performed. Nursing notes and EMR were reviewed. Patient appears to have a foreign body sensation of his right eye. On exam I do not see obvious signs of abrasion or foreign body. There is no ulceration. He does have a quite obvious subconjunctival hemorrhage, and this does seem to be distressing for the patient. Because of his recent symptoms I did elect to start him on Ciloxan eyedrops. I did recommend the patient follow up with ophthalmology tomorrow for recheck of his eye. The patient was otherwise invited back to the ER with any new, worsening, or concerning symptoms. The chart was completed utilizing [employer] Voice Recognition Software. Grammatical errors, random word insertions, pronoun errors, and incomplete sentences are an occasional consequence of this system due to software limitations, ambient noise, and hardware issues. Any formal questions or concerns about the content, text, or information contained within the body of this dictation should be directly addressed to the provider for clarification. . Medical Decision Differential diagnosis includes, but is not limited to: Subconjunctival hemorrhage, abrasion, laceration, glaucoma, and others Impression Primary Impression: Subconjunctival hemorrhage of right eye Departure Information Dispostion Home / Self-Care Condition FAIR Referrals Lawrence Solomon M.D. Forms HOME CARE DOCUMENTATION FORM, Work Instructions, Additional Instructions: Patient was seen and evaluated today in the emergency department fo medical care. Return to work on 04/12/2016. Please excuse. IMPORTANT VISIT INFORMATION Patient Instructions My [facility] Additional Instructions You were seen and evaluated today on an emergency basis only. This is not a substitute for, or an effort to provide, complete comprehensive medical care. It is not possible to recognize and treat all injuries or illnesses in a single emergency department visit. For this reason it is recommended that you followup with Ophthalmology, Dr. Solomon's office, tomorrow for ongoing care and evaluation. Let the office know you were seen in the emergency department to help make her appointment. Use Ciloxan Eye Drops: Instill 1-2 drops into the conjunctival sac every 2 hours while awake for 2 days and 1-2 drops every 4 hours while awake for the next 5 days For baseline pain relief you may alternate ibuprofen and acetaminophen every 4 hours for pain control. Take 600 mg ibuprofen (Advil) and then 4 hours later take 1000 mg acetaminophen (Tylenol). Do not take more than 3000 mg acetaminophen in a single day. You are welcome to return to the emergency department anytime with new, worsening, or concerning symptoms. Work Instructions Additional Work Instructions: Patient was seen and evaluated today in the emergency department for medical care. Return to work on 04/12/2016. Please excuse.
[2016-06-07] MEDS ORDERED: METO1TAB31 PO (16:30)
[2016-06-07] MEDS ORDERED: ASPEC81 PO (16:30)
[2016-06-26] MEDS ORDERED: FURO20TA PO (08:11)
[2016-11-13] MEDS ORDERED: MULT-506 PO (10:50)
[2016-11-13] MEDS ORDERED: ASCO500T3 PO (17:59)
== END 2016-04-09 15:35 | disposition home or self-care (01) ==
LOC: C.EDB 14:48 → C.EDD 15:35
DX: H11.31 Conjunctival hemorrhage, right eye (principal); W19.XXXD Unspecified fall, subsequent encounter; I10 Essential (primary) hypertension; F17.210 Nicotine dependence, cigarettes, uncomplicated; Z79.899 Other long term (current) drug therapy

== ENCOUNTER → 2016-05-03 | Outpatient (CLI) | payer BC ==
[~2016-05-03] MED LIST changes: +ASCO500T3 PO; +ASPEC81 PO; +BSP/5 PO; +CEPH-571 PO; +CITA10TA4 PO; +DICY20TA35 PO; +FURO20TA PO; +IBUP-103 PO; +LXP/20 PO; +LXP10 PO; +METO1TAB31 PO; +METO25TA3 PO; +MULT-506 PO; +ONDA4TAB10 SL; +POTA1CAP2 PO; +PRED50TA PO; +TPRSR/25 PO; +TRMCR130WC TOP; +VALA1TAB31 PO
--- NOTE | 2016-05-03 15:27 | DIAGNOSTIC IMAGING REPORT ---
LUMBAR SPINE 5 VIEWS CLINICAL HISTORY: Chronic low back pain. FINDINGS: Five views of the lumbar spine are compared to study dated 06/30/2011. The skeletal structures are well mineralized. There is no radiographic evidence of fracture or malalignment. Vertebral body height and alignment are maintained throughout the lumbar spine. Moderate facet arthropathy is seen in the lower lumbar region. Anterior osteophytes are noted throughout. The transverse and spinous processes are intact. There is no evidence of spondylolysis. There is mild to moderate multilevel degenerative disc space narrowing throughout the lumbar spine. This is greatest at L2-L3 where there is associated degenerative endplate sclerosis. The bony pelvis is intact as visualized. There is mild atherosclerotic calcification of the abdominal aorta. A nonobstructed abdominal bowel gas pattern is observed. IMPRESSION: 1. No acute bony abnormality is seen involving the lumbar spine. 2. Lumbosacral spondylosis as above. Dictated: 05/03/2016 3:16 PM Transcribed: 05/03/2016 3:26 PM [email or web address]_Herb Electronically signed by: Tato Clifton M.D. 05/03/2016 3:30 PM Dictated Date/Time: 05/03/2016 3:16 PM
== END | disposition home or self-care (01) ==
LOC: C.RAD1850 14:59
PROVIDERS: ATTEND Nurse Practitioner Family
DX: M54.5 Low back pain (principal); M47.897 Other spondylosis, lumbosacral region

== ENCOUNTER 2016-06-06 18:27 | Observation (INO) | payer BC ==
[~2016-06-06] VITALS: Ht 180.3 cm; Wt 162.0 kg
[2016-06-06] MEDS ORDERED: ASPIRIN 81 MG CHEW PO STA (18:41)
[2016-06-06] MEDS ORDERED: NITROGLYCERIN 0.4 MG SL PER TAB CHARGE SL PRN ×2 (18:45→19:30)
[2016-06-06 18:56] LABS: BASO % 0.4 %; BASO ABS # 0.04 K/uL (0-0.2); COMPLETE YES; EOS % 4.9 %; HEMATOCRIT 43.3 % (42-52); IG% 0.7 %; LYMPH % 27.2 %; LYMPH ABS # 2.85 K/uL (1.2-3.4); MEAN CELL VOLUME 97.7 fL (80-100); MEAN CORPUSCULAR HEMOGLOBIN 32.7 pg (25-34); MEAN CORPUSCULAR HGB CONC 33.5 g/dl (32-36); MEAN PLATELET VOLUME 10.7 fL (7.4-10.4); MONO % 7.7 %; NEUT % 59.1 %; PLATELET COUNT 236 K/uL (130-400); RED BLOOD COUNT 4.43 M/uL (4.7-6.1); WHITE BLOOD COUNT 10.48 K/uL (4.8-10.8)
--- NOTE | 2016-06-06 19:11 | DIAGNOSTIC IMAGING REPORT ---
SINGLE VIEW CHEST CLINICAL HISTORY: Atypical chest pain. FINDINGS: An AP, portable, upright chest radiograph is compared to study dated 04/19/2015. The examination is degraded by portable technique, apical positioning, and motion artifact. The heart is enlarged. There is pulmonary vascular congestion. No airspace consolidation or large pleural effusion is identified. Bibasilar atelectasis is noted. No pneumothorax is seen. The bony thorax is grossly intact. Degenerative change is present throughout the thoracic spine. IMPRESSION: 1. Cardiomegaly with mild pulmonary vascular congestion. 2. No large pleural effusion identified and there is no airspace consolidation typical for pneumonia. Electronically signed by: Tato Clifton M.D. 06/06/2016 7:10 PM Dictated Date/Time: 06/06/2016 7:09 PM
[2016-06-06] MEDS ORDERED: ALUMINUM/MAGNESIUM/SIMETH (MAALOX MAX) 30 ML UDC PO PRN (19:30)
[2016-06-06] MEDS ORDERED: ONDANSETRON INJ 2 MG/ML 2 ML VIAL IV PRN (19:30)
[2016-06-06] MEDS ORDERED: MoRPHine SULFATE 2 MG/ML CARP IV PRN (19:30)
[2016-06-06] MEDS ORDERED: ACETAMINOPHEN 325 MG TAB PO PRN (19:30)
[2016-06-06] MEDS ORDERED: ZOLPIDEM TARTRATE 5 MG TAB PO PRN (19:30)
[2016-06-06] MEDS ORDERED: MAGNESIUM HYDROXIDE SUSP 30 ML UDC PO PRN (19:30)
[2016-06-06] MEDS ORDERED: POLYETHYLENE (MIRALAX) 17 GM PACK PO PRN (19:30)
[2016-06-06 19:42] LABS: ALKALINE PHOSPHATASE 107 U/L (45-117); ALT/SGPT 34 U/L (12-78); BLOOD UREA NITROGEN 19 mg/dl (7-18); BUN/CREATININE RATIO 17.5 (10-20); CALCIUM 8.1 mg/dl (8.5-10.1); CHLORIDE 107 mmol/L (98-107)
[2016-06-06 19:43] LABS: CARBON DIOXIDE 30 mmol/L (21-32); CKMB/CK RATIO 2.4 (0-3.0); GLUCOSE 185 mg/dl (70-99); SODIUM 145 mmol/L (136-145)
[2016-06-06] MEDS ORDERED: IV FLUIDS COMPLETED PRN (19:45)
[2016-06-06 19:50] LABS: INR 0.9 (0.9-1.1); PROTHROMBIN TIME (PATIENT) 9.6 SECONDS (9.0-12.0)
[2016-06-06 19:57] LABS: AST/SGOT 22 U/L (15-37); POTASSIUM 3.9 mmol/L (3.5-5.1)
--- NOTE | 2016-06-06 20:04 | EMERGENCY ROOM VISIT NOTE ---
History Report prepared by Filiibloraine: Cedric Campbell Under the Supervision of: Dr. Gualberto Gonzalez M.D. First contact with patient: 18:33 Chief Complaint: CHEST PAIN Stated Complaint: CHEST PAIN History of Present Illness The patient is a 51 year old male who presents to the Emergency Room with complaints of chest pain, substernal in location. The patient also notes the following associated symptoms, shortness of breath, fatigue. This started at 1700 hrs today and is improving. The patient has rated it 3/10 and notes no relieving factors. This occurred while shoveling snow. Pt denies LOC, headache , fevers, chills, diaphoresis, visual changes, neck pain, vomiting, abdominal pain, back pain, melena, hematochezia, urinary symptoms, numbness, weakness, lymphadenopathy, rash, or other complaints. Source of History: patient Onset: 1700 today Position: chest Symptom Intensity: 3/10 Timing: other (improving) Modifying Factors (Relieving): other (none) Associated Symptoms: + SOB, + fatigue Review of Systems See HPI for pertinent positives and negatives. A total of ten systems were reviewed and were otherwise negative. Past Medical & Surgical Medical Problems: (1) Chest pain (2) Herniated disc (3) Hypertension Nos (4) Osteoarthritis (5) Shingles (6) Tobacco Use Disorder Surgical Problems: (1) H/O right knee surgery Social History Problems: (1) Cervicalgia Family History No pertinent family history Social History Smoking Status: Light Tobacco Smoker Alcohol Use: occasionally Marital Status: single Occupation Status: employed Current/Historical Medications Scheduled Ascorbic Acid (Vitamin C), 500 MG PO DAILY Multivitamin (Multivitamin), 1 TAB PO DAILY Allergies Coded Allergies: Sulfa Antibiotics (Verified Allergy, Unknown, shortness of breath, 05/31/16) Physical Exam Vital Signs Date Time Temp Pulse Resp B/P Pulse Ox O2 Delivery O2 Flow Rate FiO2 06/06/16 19:17 92 06/06/16 19:04 93 24 175/90 97 Room Air 06/06/16 18:54 97 Room Air 06/06/16 18:54 97 Room Air 06/06/16 18:39 99 Room Air 06/06/16 18:35 37.1 96 15 185/89 97 Room Air Physical Exam GENERAL: Awake, alert, tired-appearing, in no distress HENT: Normocephalic, atraumatic. Oropharynx unremarkable. EYES: Normal conjunctiva. Sclera non-icteric. NECK: Supple. No nuchal rigidity. FROM. No JVD. RESPIRATORY: Clear to auscultation. CARDIAC: Regular rate, normal rhythm. Extremities warm and well perfused. Pulses equal. ABDOMEN: Soft, non-distended. No tenderness to palpation. No rebound or guarding. No masses. RECTAL: Deferred. MUSCULOSKELETAL: Chest examination reveals no tenderness. The back is symmetrical on inspection without obvious abnormality. There is no CVA tenderness to palpation. No joint edema. LOWER EXTREMITIES: Calves are equal size bilaterally and non-tender. No edema. No discoloration. NEURO: Normal sensorium. No sensory or motor deficits noted. SKIN: No rash or jaundice noted. Medical Decision & Procedures ER Provider Diagnostic Interpretation: X-ray: Per my interpretation, radiologist review. SINGLE VIEW CHEST CLINICAL HISTORY: Atypical chest pain. FINDINGS: An AP, portable, upright chest radiograph is compared to study dated 04/19/2015. The examination is degraded by portable technique, apical positioning, and motion artifact. The heart is enlarged. There is pulmonary vascular congestion. No airspace consolidation or large pleural effusion is identified. Bibasilar atelectasis is noted. No pneumothorax is seen. The bony thorax is grossly intact. Degenerative change is present throughout the thoracic spine. IMPRESSION: 1. Cardiomegaly with mild pulmonary vascular congestion. 2. No large pleural effusion identified and there is no airspace consolidation typical for pneumonia. Electronically signed by: Tato Clifton M.D. 06/06/2016 7:10 PM Dictated Date/Time: 06/06/2016 7:09 PM Laboratory Results 06/06/16 18:45 Red Blood Count 4.43, Mean Corpuscular Volume 97.7, Mean Corpuscular Hemoglobin 32.7, Mean Corpuscular Hemoglobin Concent 33.5, Mean Platelet Volume 10.7, Neutrophils (%) (Auto) 59.1, Lymphocytes (%) (Auto) 27.2, Monocytes (%) (Auto) 7.7, Eosinophils (%) (Auto) 4.9, Basophils (%) (Auto) 0.4, Neutrophils # (Auto) 6.20, Lymphocytes # (Auto) 2.85, Monocytes # (Auto) 0.81, Eosinophils # (Auto) 0.51, Basophils # (Auto) 0.04 06/06/16 18:45 Test 06/06/16 18:45 06/06/16 18:48 White Blood Count 10.48 K/uL (4.8-10.8) Red Blood Count 4.43 M/uL (4.7-6.1) Hemoglobin 14.5 g/dL (14.0-18.0) Hematocrit 43.3 % (42-52) Mean Corpuscular Volume 97.7 fL (80-100) Mean Corpuscular Hemoglobin 32.7 pg (25-34) Mean Corpuscular Hemoglobin Concent 33.5 g/dl (32-36) Platelet Count 236 K/uL (130-400) Mean Platelet Volume 10.7 fL (7.4-10.4) Neutrophils (%) (Auto) 59.1 % Lymphocytes (%) (Auto) 27.2 % Monocytes (%) (Auto) 7.7 % Eosinophils (%) (Auto) 4.9 % Basophils (%) (Auto) 0.4 % Neutrophils # (Auto) 6.20 K/uL (1.4-6.5) Lymphocytes # (Auto) 2.85 K/uL (1.2-3.4) Monocytes # (Auto) 0.81 K/uL (0.11-0.59) Eosinophils # (Auto) 0.51 K/uL (0-0.5) Basophils # (Auto) 0.04 K/uL (0-0.2) RDW Standard Deviation 51.3 fL (36.4-46.3) RDW Coefficient of Variation 14.4 % (11.5-14.5) Immature Granulocyte % (Auto) 0.7 % Immature Granulocyte # (Auto) 0.07 K/uL (0.00-0.02) Prothrombin Time 9.6 SECONDS (9.0-12.0) Prothromb Time International Ratio 0.9 (0.9-1.1) Activated Partial Thromboplast Time 26.8 SECONDS (21.0-31.0) Partial Thromboplastin Ratio 1.0 Anion Gap 8.0 mmol/L (3-11) Est Creatinine Clear Calc Drug Dose 121.3 ml/min Estimated GFR () 89.0 Estimated GFR (Non- 76.8 BUN/Creatinine Ratio 17.5 (10-20) Calcium Level 8.1 mg/dl (8.5-10.1) Total Bilirubin 0.3 mg/dl (0.2-1) Direct Bilirubin < 0.1 mg/dl (0-0.2) Aspartate Amino Transf (AST/SGOT) 22 U/L (15-37) Alanine Aminotransferase (ALT/SGPT) 34 U/L (12-78) Alkaline Phosphatase 107 U/L (45-117) Total Creatine Kinase 193 U/L (39-308) Creatine Kinase MB 4.7 ng/ml (0.5-3.6) Creatine Kinase MB Ratio 2.4 (0-3.0) Total Protein 6.5 gm/dl (6.4-8.2) Albumin 3.1 gm/dl (3.4-5.0) Lipase 141 U/L (73-393) Bedside Troponin I 0.020 ng/ml (0-0.045) Laboratory results reviewed by me Medications Administered Medications (Trade) Dose Ordered Sig/Lewis Route Start Time Stop Time Status Last Admin Dose Admin Aspirin (Aspirin Chew) 324 mg NOW STAT PO 06/06/16 18:41 06/06/16 18:42 DC 06/06/16 19:03 324 MG ECG Indication: chest pain Rate (beats per minute): 97 Rhythm: sinus rhythm Findings: nonspecific-ST abn, PVC, no acute ischemic change ED Course 183: The patient was evaluated in room A3. A complete history and physical exam was performed. 184: Aspirin 324 mg PO. 184: Nitroglycerin 0.4 mg SL. 1904: Patient reevaluated. He is doing well. Nitroglycerin not given as the patient's pain resolved. Discuss further evaluation in the hospital. Patient in agreement. 1914: Consultation made with internal medicine. The patient will be evaluated. Medical Decision Triage Nursing notes reviewed. The patient's presentation and history were concerning for chest pain. Etiologies such as cardiac ischemia, aortic dissection, pulmonary embolism, pneumonia, pneumothorax, musculoskeletal, infections, gastrointestinal, as well as others were entertained. The patient was given aspirin. A nitroglycerin was ordered but his pain resolved. The patient had an unremarkable chest x-ray. ECG was nonischemic. His CBC, chemistry panel, and Cardec markers were unremarkable. The patient was mildly hypertensive. The patient does not know his family history for heart disease as his parents when he was young. He is a smoker and is overweight. He is at high risk for coronary disease. His symptoms occurred while shoveling snow. I discussed further evaluation and management in the hospital. The patient was in agreement. Consultation was made with internal medicine. The patient was evaluated for further management. The chart was completed utilizing [employer] Speech voice recognition software. Grammatical errors, random word insertions, pronoun errors, and incomplete sentences are an occasional consequence of this system due to software limitations, ambient noise, and hardware issues. Any formal questions or concerns about the content, text, or information contained within the body of this dictation should be directly addressed to the physician for clarification. Impression Primary Impression: Substernal chest pain Scribe Attestation The scribe's documentation has been prepared under my direction and personally reviewed by me in its entirety. I confirm that the note above accurately reflects all work, treatment, procedures, and medical decision making performed by me. Departure Information Dispostion Being Evaluated By Hospitalist Referrals Medardo Priest III, CRNP (PCP) Patient Instructions My [facility]
--- NOTE | 2016-06-06 20:06 | History and Physical ---
History & Physical Date & Time of Service: Jun 06, 2016 at 19:46 Chief Complaint: Chest Pain Primary Care Physician: Medardo Priest III, CRNP History of Present Illness Source: patient Obese 51 y/o M who denies additional active medical issues. Pt was outside shoveling snow when he became SOB and stepped indoors. He then developed central CP lasting a few minutes. He denies radiation of the pain, denies N/V, diaphoresis or light-headedness. One day earlier he had diarrhea and nausea which had resolved before he woke up today. 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 He states that his lipid profile was checked one year ago and did not merit Statin therapy. His systolic pressure has been in the range of 165-170 since arrival. Labs show a Glu of 185. Past Medical/Surgical History Medical Problems: (1) Herniated disc Status: Chronic (2) Osteoarthritis Status: Chronic (3) Shingles Status: Resolved Surgical Problems: (1) H/O right knee surgery Status: Resolved Family History No pertinent family history Mother [place] Father at early age - cause not known - was unhealthy after army service Social History Smokes 1/4 pack Qd Smoking Status: Current Some Day Smoker Alcohol Use: occasionally Marital Status: single Occupational Status: employed Allergies Coded Allergies: Sulfa Antibiotics (Verified Allergy, Unknown, shortness of breath, 05/31/16) Home Medications Scheduled Ascorbic Acid (Vitamin C), 500 MG PO DAILY Multivitamin (Multivitamin), 1 TAB PO DAILY Review of Systems Constitutional: No chills, No fever, No sweats Eyes: No eye pain, No worsening of vision ENT: No hearing loss, No nasal symptoms, No unusual epistaxis Respiratory: + dyspnea on exertion, + shortness of breath, No cough, No sputum , No wheezing Cardiovascular: + chest pain, No PND, No claudication, No edema, No orthopnea, No palpitations Abdomen: + diarrhea (one day prior), + nausea (one day prior), No pain, No vomiting Genitourinary - Male: No dysuria, No hematuria, No urinary frequency, No urinary urgency Neurologic: No memory loss, No paralysis Psychiatric: No depression symptoms Endocrine: No fatigue Hematologic / Lymphatic: No abnormal bleeding/bruising Integumentary: No rash Allergic / Immunologic: No environmental allergies Physical Exam Vital Signs Date Time Temp Pulse Resp B/P Pulse Ox O2 Delivery O2 Flow Rate FiO2 06/06/16 19:17 92 06/06/16 19:04 93 24 175/90 97 Room Air 06/06/16 18:54 97 Room Air 06/06/16 18:54 97 Room Air 06/06/16 18:39 99 Room Air 06/06/16 18:35 37.1 96 15 185/89 97 Room Air General Appearance: WD/WN, no apparent distress, + pertinent finding ( Overweight middle aged male - no distress) Head: normocephalic, atraumatic Eyes: normal inspection ENT: normal ENT inspection, hearing grossly normal, TMs normal, pharynx normal , + nasal congestion Neck: supple, + pertinent finding (exam limited by habitus) Respiratory/Chest: chest non-tender, lungs clear, normal breath sounds, no respiratory distress, no accessory muscle use, + pertinent finding (exam limited by habitus) Cardiovascular: regular rate, rhythm, no edema, no gallop, + pertinent finding (exam limited by habitus) Abdomen/GI: normal bowel sounds, non tender, soft Back: normal inspection, no CVA tenderness Extremities/Musculoskelatal: normal inspection, no calf tenderness, normal capillary refill, no pedal edema, normal range of motion 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, no motor/sensory deficits, alert, normal mood/affect, normal reflexes, oriented x 3 Skin: normal color, warm/dry, no rash Diagnostics Laboratory Results Results Past 24 Hours Test 06/06/16 18:45 06/06/16 18:48 Range/Units White Blood Count 10.48 4.8-10.8 K/uL Red Blood Count 4.43 4.7-6.1 M/uL Hemoglobin 14.5 14.0-18.0 g/dL Hematocrit 43.3 42-52 % Mean Corpuscular Volume 97.7 80-100 fL Mean Corpuscular Hemoglobin 32.7 25-34 pg Mean Corpuscular Hemoglobin Concent 33.5 32-36 g/dl Platelet Count 236 130-400 K/uL Mean Platelet Volume 10.7 7.4-10.4 fL Neutrophils (%) (Auto) 59.1 % Lymphocytes (%) (Auto) 27.2 % Monocytes (%) (Auto) 7.7 % Eosinophils (%) (Auto) 4.9 % Basophils (%) (Auto) 0.4 % Neutrophils # (Auto) 6.20 1.4-6.5 K/uL Lymphocytes # (Auto) 2.85 1.2-3.4 K/uL Monocytes # (Auto) 0.81 0.11-0.59 K/uL Eosinophils # (Auto) 0.51 0-0.5 K/uL Basophils # (Auto) 0.04 0-0.2 K/uL RDW Standard Deviation 51.3 36.4-46.3 fL RDW Coefficient of Variation 14.4 11.5-14.5 % Immature Granulocyte % (Auto) 0.7 % Immature Granulocyte # (Auto) 0.07 0.00-0.02 K/uL Sodium Level 145 136-145 mmol/L Chloride Level 107 98-107 mmol/L Carbon Dioxide Level 30 21-32 mmol/L Anion Gap 8.0 3-11 mmol/L Blood Urea Nitrogen 19 7-18 mg/dl Creatinine 1.10 0.60-1.40 mg/dl Est Creatinine Clear Calc Drug Dose 121.3 ml/min Estimated GFR () 89.0 Estimated GFR (Non- 76.8 BUN/Creatinine Ratio 17.5 10-20 Random Glucose 185 70-99 mg/dl Calcium Level 8.1 8.5-10.1 mg/dl Total Bilirubin 0.3 0.2-1 mg/dl Alanine Aminotransferase (ALT/SGPT) 34 12-78 U/L Alkaline Phosphatase 107 45-117 U/L Creatine Kinase MB 4.7 0.5-3.6 ng/ml Creatine Kinase MB Ratio 2.4 0-3.0 Total Protein 6.5 6.4-8.2 gm/dl Albumin 3.1 3.4-5.0 gm/dl Lipase 141 73-393 U/L Bedside Troponin I 0.020 0-0.045 ng/ml EKG Sinus - PVCs Impression Assessment and Plan Obese 51 y/o M who denies additional active medical issues. Pt was outside shoveling snow when he became SOB and stepped indoors. He then developed central CP lasting a few minutes. He denies radiation of the pain, denies N/V, diaphoresis or light-headedness. One day earlier he had diarrhea and nausea which had resolved before he woke up today. 1) CP - CAD risk includes male, age, morbid obesity, possibly untreated HTN, smoking - family Hx is unclear Pt will be monitored on telemetry and we will obtain serial enzymes. CP will be treated with NTG or morphine. He will be started on ASA, Atorvastatin and Metoprolol. We will recheck a lipid profile AM. 2) High blood pressure - no previous diagnosis of HTN - will trend during this visit and may recommend outpt treatment - as mentioned he has been placed on a B agustina. 3) Morbidly obese - may benefit from nutritional counseling if he is agreeable. 4) Elevated random Glucose. - will check HBa1C Full code - Lovenox prophylaxis Total time for this admit including review of labs, meds, EKG - discussion with pt and ER attending -33 min Level of Care Telemetry Resuscitation Status FULL RESUSCITATION VTE Prophylaxis VTE Risk Assessment Done? Y/N: Yes Risk Level: Moderate Given or contraindicated: Enoxaparin (Lovenox)SQ
[2016-06-06 20:57] VITALS: O2SAT 95
[2016-06-06] MEDS ORDERED: METOPROLOL TARTRATE 25 MG TAB PO SCH (21:00)
[2016-06-06] MEDS ORDERED: ATORVASTATIN 20 MG TAB PO SCH (21:00)
[2016-06-06 21:44] VITALS: BP 168/96; PULSE 80; TEMP 36.9; Ht 180.3 cm; Wt 162.0 kg
[2016-06-06] MEDS ORDERED: ENOXAPARIN 40 MG/0.4 ML SYR SC SCH (22:00)
[2016-06-06] MEDS ORDERED: INFLUENZA VIRUS QUAD VACCINE 0.5 ML SYR IM. ONE (22:30)
[2016-06-06] MEDS ORDERED: INFLUENZA ADMINISTRATION CHARGE ONE (22:30)
[2016-06-06 23:55] VITALS: BP 134/63; PULSE 87; TEMP 37; O2SAT 95
[2016-06-07 03:58] LABS: URINE APPEARANCE CLEAR (CLEAR); URINE BILIRUBIN NEG (NEG); URINE COLOR YELLOW; URINE NITRITE NEG (NEG); URINE PH 7.5 (4.5-7.5); URINE SPECIFIC GRAVITY 1.027 (1.000-1.030); UROBILINOGEN NEG (NEG); ZZUR CULT IF INDIC CLEAN CATCH NO
[2016-06-07] MEDS ORDERED: METOPROLOL TARTRATE 25 MG TAB PO ONE (04:00)
[2016-06-07 04:03] LABS: MANUAL MICROSCOPIC REQUIRED? NO; REVIEW REQ? NO
[2016-06-07 04:10] VITALS: BP 133/68; PULSE 84; TEMP 36.9; O2SAT 96
[2016-06-07] MEDS: HEPARIN 25,000 UNIT/500ML D5W 500 ML IV PRN ×2 (04:22→12:12)
[2016-06-07 05:20] LABS: CHOLESTEROL/HDL RATIO 2.9
[2016-06-07 06:55] LABS: ESTIMATED AVERAGE GLUCOSE 126 mg/dl; HA1C FLAG Normal (Normal)
[2016-06-07 07:37] VITALS: BP 145/69; PULSE 71; TEMP 36.8; O2SAT 95
[2016-06-07] MEDS ORDERED: METOPROLOL TARTRATE 25 MG TAB PO SCH (09:00)
[2016-06-07] MEDS ORDERED: ASPIRIN 81 MG ECTAB PO SCH (09:00)
[2016-06-07 10:17] LABS: PARTIAL THROMBOPLASTIN RATIO 1.4
[2016-06-07 10:39] LABS: CALCIUM 8.1 mg/dl (8.5-10.1); CREATININE 0.84 mg/dl (0.60-1.40); POTASSIUM 3.9 mmol/L (3.5-5.1)
[2016-06-07 11:02] VITALS: BP 144/71; PULSE 66; TEMP 37; O2SAT 95
[2016-06-07] MEDS ORDERED: HEPARIN IV BOLUS 9,000 UNIT in SYRINGE 0 ML IV ONE (12:00)
[2016-06-07] MEDS ORDERED: ATROPINE SULFATE 0.1 MG/ML 5ML SYR ONE (15:19)
[2016-06-07] MEDS ORDERED: METOPROLOL TARTRATE 1 MG/ML VIAL ONE (15:20)
[2016-06-07] MEDS ORDERED: DOBUTamine HCL 12.5 MG/ML 20 ML VIAL ONE (15:20)
[2016-06-07] MEDS ORDERED: ASPEC81 PO (16:30)
[2016-06-07] MEDS ORDERED: METO1TAB31 PO (16:30)
--- NOTE | 2016-06-07 16:35 | DOBUTAMINE ECHO ---
*NOTICE TO RECEIVING [employer] This information is strictly Confidential and protected under [place] law. [place] law prohibits you from making any further disclosure of this information unless further disclosure is expressly permitted by the written consent of the person to whom it pertains or is authorized by law. A general authorization for the release of medical or other information is not sufficient for this purpose. Hospital accepts no responsibility if the information is made available to any other person, INCLUDING THE PATIENT. Interpretation Summary * Name: MARAH SCHREIBER II Study Date: 06/07/2016 02:35 PM BP: 195/79 mmHg * Patient Location: 2T\S\S231\S\1 HR: 83 * : 1965 (M/d/yyyy) Gender: Male Height: 71 in * Age: 51 yrs Ethnicity: [place] Weight: 357 lb * Ordering Physician: Luciano Florence * Referring Physician: KALYANI * Performed By: Rica Tripathi RDCS * * Reason For Study: CHEST PAIN * BSA: 2.7 m2 * History: CHEST PAIN * Resting echocardiogram with hyperdynamic LV systolic function. Mild concentric left ventricle hypertrophy. * The ST segment depressions following pharmacologic stress are borderline diagnostic of myocardial ischemia. The specificity is diminished by the baseline ST segment abnormalities. The echo response to pharmacologic stress was normal. No echocardiographic evidence of pharmacologic stress-induced myocardial ischemia. * The left ventricular ejection fraction increases normally with stress. The left ventricular end-systolic cavity size reduces post-stress (normal response). The left ventricular wall motion with stress is normal. Procedure Details * DOBUTAMINE ECHO, CPT#30481 * A contrast injection of Definity was performed to improve assessment of LV function. * Contrast was injected into an intravenous site in the right arm. * One vial of Definity ultrasound contrast was diluted in normal saline to a total volume of 10 ml. A total of '4' ml of solution was administered during imaging. * Lot # [id number] of Definity utilized for procedure. * Expiration date APR 12. * The attending nurse who injected the contrast agent was LEN OMER RN. Left Ventricle * The left ventricle is normal in size. * There is mild concentric left ventricular hypertrophy. * The left ventricle is hyperdynamic. * Ejection Fraction = >70 %. * Hyperdynamic resting left ventricular systolic function. Increased contractility in all LV wall segments following dobutamine stress. There was a decrease in the end systolic volume of the left ventricle following pharmacologic stress. The hyperdynamic wall motion at both rest and following stress was most prominent in the mid segment of the left ventricle. Stress Parameters * Normal sinus rhythm, right-sided conduction delay, left axis deviation, 0.4-0.[address] depression in V5 and V6. Frequent premature ventricular beats at rest. * With dobutamine infusion there was decreased frequency of ventricular ectopy. Electrocardiogram post dobutamine infusion with sinus rhythm, 1-1.[address] depression leads 2, 3, aVF, 1 millimeter horizontal to slowly downsloping ST depression in V5 and V6. * The stress portion of this study was personally supervised by the undersigned interpreting physician. * Rest heart rate was '83' BPM. * Rest blood pressure was '195/79' * Maximum heart rate achieved was 148 bpm. * Maximum heart rate was 148 % of maximum age-predicted heart rate. * Maximum blood pressure was '195/79' * Maximum Dobutamine infusion rate was '50' mcg/kg/min. * A total of .25 mg of intravenous Atropine was used to supplement Dobutamine for heart rate response. * Dobutamine infusion was terminated due to achieving target heart rate * A total of 10 mg of IV Metoprolol was administered to reverse Dobutamine-induced tachycardia. * The patient experienced no chest pain or other anginal type symptoms during or following pharmacologic stress.
--- NOTE | 2016-06-07 16:38 | Discharge Instructions ---
Discharge Instructions Date of Service Jun 07, 2016. Admission Reason for Admission: Chest Pain Discharge Discharge Diagnosis / Problem: Chest pain, hypertension, demand ischemia Discharge Goals Goal(s): Improve disease control, Diagnostic testing, Therapeutic intervention Activity Recommendations Activity Limitations: as noted below Lifting Limitations: none Exercise/Sports Limitations: gradually increase as tolerated Shower/Bathe: no limitations Driving or Machine Use: no limitations . Instructions / Follow-Up Instructions / Follow-Up You were admitted for chest pain and found to have significantly elevated blood pressure both at rest and during your stress test. It is recommended that you start on a blood pressure medicine called Metoprolol. Your heart muscle was enlarged or thickened and this is from uncontrolled high blood pressure. If left untreated, this can lead to congestive heart failure and heart disease. You were also found to have prediabetes and you should discuss with your family doctor about a weight loss program and a nutrition consultation to help you lose weight. You should exercise regularly and eat a low carbohydrate diet, and refrain from excessive alcohol use. Current Hospital Diet Patient's current hospital diet: AHA Diet (Heart Healthy) Discharge Diet Recommended Diet: AHA Diet (Heart Healthy) Procedures Procedures Performed: Cardiac stress Dobutamine ECHO Pending Studies Studies pending at discharge: no Laboratory Results Hemoglobin A1c Test 06/06/16 23:01 Range/Units Estimated Average Glucose 126 mg/dl Hemoglobin A1c 6.0 H 4.5-5.6 % Lipid Panel Test 06/07/16 04:45 Range/Units Triglycerides Level 63 0-150 mg/dl Cholesterol Level 174 0-200 mg/dl HDL Cholesterol 60 mg/dl Cholesterol/HDL Ratio 2.9 LDL Cholesterol, Calculated 101 mg/dl Work Instructions Additional Instructions: Return to work on Sunday06/11/16. Medical Emergencies . Who to Call and When: Medical Emergencies: If at any time you feel your situation is an emergency, please call 911 immediately. . Non-Emergent Contact Non-Emergency issues call your: Primary Care Provider If you have chest pain, shortness of breath, severe headache, or for any other acute concerns---> please go to the ER immediately . . "Provider Documentation" section prepared by Negin Stiles. VTE Core Measure Inpt VTE Proph given/why not?: Enoxaparin (Lovenox)SQ
[2016-06-07 16:51] VITALS: BP 144/71; PULSE 66; TEMP 37; O2SAT 95
--- NOTE | 2016-06-07 20:31 | EXERCISE STRESS TEST ---
TREADMILL EXERCISE STRESS TEST DATE: 06/07/2016. CLINICAL INDICATIONS: Chest pain. REFERRING PHYSICIAN: Negin Stiles M.D. INTERPRETING PHYSICIAN: Luciano Florence M.D. PROTOCOL: The patient came to the cardiac testing laboratory for a stress echocardiogram. This was the stress ECG portion of the study. Because of an inadequate heart rate response to treadmill exercise no echo images were obtained at the termination of exercise. The patient thereafter underwent a dobutamine stress echocardiogram. With the dobutamine stress echocardiogram he achieved an adequate heart rate response. This is an interpretation of the ECG portion of the treadmill exercise stress test. The patient exercised a total of 3 minutes and 37 seconds of the standard Ronny protocol. The test was terminated because of leg cramps. He had no complaints of any chest pain or other anginal type pains during or following exercise. The resting heart rate was 77 beats per minute. The maximum heart rate following exercise was 120 beats per minute. This was 71% of maximum predicted heart rate. The resting blood pressure was 144/78 mmHg. The maximum blood pressure following exercise was 206/65 mmHg. The resting electrocardiogram revealed sinus rhythm, right sided conduction delay, mildly downsloping ST segments in V5 and V6. Shallow T-wave inversions in leads V5 and V6. Shallow T-wave inversion in 1 and aVL. During exercise, there were occasional premature ventricular beats. Post-exercise electrocardiogram revealed sinus tachycardia, 0.15-0.[address] depressions leads V5 and V6. Normalization of the T-waves in V5 and V6. CONCLUSIONS: 1. Submaximal exercise stress test to 71% maximum predicted heart rate negative for evidence of myocardial ischemia by ECG criteria. 2. No chest pain or other anginal type symptoms with exercise. 3. Occasional premature ventricular beat with exercise. 4. Hypertensive systolic blood pressure response to exercise. Following this test, the patient underwent a dobutamine stress echocardiogram. The dobutamine stress echocardiogram was negative for evidence of myocardial ischemia. Please see the separate dobutamine stress echocardiogram report for complete details of that study.
--- NOTE | 2016-06-07 23:04 | Discharge Summary ---
Discharge Summary Date of Service Jun 07, 2016. Discharge Summary Admission Date: Jun 06, 2016 at 19:33 Discharge Date: Jun 07, 2016 Discharge Disposition: Home Principal Diagnosis: Chest pain Problems/Secondary Diagnoses: Elevated troponin secondary to demand ischemia Morbid obesity HTN Prediabetes Procedures: Dobutamine Stress ECHO: Resting echocardiogram with hyperdynamic LV systolic function. Mild concentric left ventricle hypertrophy. * The ST segment depressions following pharmacologic stress are borderline diagnostic of myocardial ischemia. The specificity is diminished by the baseline ST segment abnormalities. The echo response to pharmacologic stress was normal. No echocardiographic evidence of pharmacologic stress-induced myocardial ischemia. * The left ventricular ejection fraction increases normally with stress. The left ventricular end-systolic cavity size reduces post-stress (normal response). The left ventricular wall motion with stress is normal. Left Ventricle * The left ventricle is normal in size. * There is mild concentric left ventricular hypertrophy. * The left ventricle is hyperdynamic. * Ejection Fraction = >70 %. * Hyperdynamic resting left ventricular systolic function. Increased contractility in all LV wall segments following dobutamine stress. There was a decrease in the end systolic volume of the left ventricle following pharmacologic stress. The hyperdynamic wall motion at both rest and following stress was most prominent in the mid segment of the left ventricle. Stress Parameters * Normal sinus rhythm, right-sided conduction delay, left axis deviation, 0.4 -0.[address] depression in V5 and V6. Frequent premature ventricular beats at rest. * With dobutamine infusion there was decreased frequency of ventricular ectopy. Electrocardiogram post dobutamine infusion with sinus rhythm, 1-1.[address] depression leads 2, 3, aVF, 1 millimeter horizontal to slowly downsloping ST depression in V5 and V6. * The stress portion of this study was personally supervised by the undersigned interpreting physician. * Rest heart rate was '83' BPM. * Rest blood pressure was '195/79' * Maximum heart rate achieved was 148 bpm. * Maximum heart rate was 148 % of maximum age-predicted heart rate. * Maximum blood pressure was '195/79' * Maximum Dobutamine infusion rate was '50' mcg/kg/min. * A total of .25 mg of intravenous Atropine was used to supplement Dobutamine for heart rate response. * Dobutamine infusion was terminated due to achieving target heart rate * A total of 10 mg of IV Metoprolol was administered to reverse Dobutamine- induced tachycardia. * The patient experienced no chest pain or other anginal type symptoms during or following pharmacologic stress. SINGLE VIEW CHEST CLINICAL HISTORY: Atypical chest pain. FINDINGS: An AP, portable, upright chest radiograph is compared to study dated 04/19/2015. The examination is degraded by portable technique, apical positioning, and motion artifact. The heart is enlarged. There is pulmonary vascular congestion. No airspace consolidation or large pleural effusion is identified. Bibasilar atelectasis is noted. No pneumothorax is seen. The bony thorax is grossly intact. Degenerative change is present throughout the thoracic spine. IMPRESSION: 1. Cardiomegaly with mild pulmonary vascular congestion. 2. No large pleural effusion identified and there is no airspace consolidation typical for pneumonia. Consultations: Cardiology Medication Reconciliation New Medications: Metoprolol Succinate (Toprol Xl) 25 Mg Tab 0.5 TAB PO DAILY for 30 Days, #15 TAB 0 Refills Aspirin (Aspirin EC Low Dose) 81 Mg Ectab 81 MG PO QAM for 30 Days, #30 Continued Medications: Ascorbic Acid (Vitamin C) 500 Mg Tab 500 MG PO DAILY Multivitamin (Multivitamin) Tab 1 TAB PO DAILY, TAB Referrals At Discharge Follow up Referrals: Family Practice Referral - Within 1-2 Weeks with Medardo Priest III, CRNP Discharge Exam Pt not having any further chest pain. No SOB. Feels good and ready for discharge after stress. Is agreeable to start metoprolol for HTN Review of Systems: Constitutional: No fever Eyes: No problem reported ENT: No problem reported Respiratory: No problem reported Cardiovascular: No problem reported Abdomen: No problem reported Genitourinary - Male: No problem reported Psychiatric: No problem reported Endocrine: No problem reported Hematologic / Lymphatic: No problem reported Integumentary: No problem reported Physical Exam: General Appearance: WD/WN, no apparent distress, + obese (morbidly) Eyes: normal inspection, sclerae normal ENT: hearing grossly normal, pharynx normal Neck: thyroid normal, no JVD, no carotid bruits, trachea midline Respiratory/Chest: lungs clear, normal breath sounds, no respiratory distress, no accessory muscle use Cardiovascular: regular rate, rhythm, no edema, no gallop, no murmur, normal peripheral pulses Abdomen / GI: normal bowel sounds, non tender, soft, no organomegaly Extremities: normal inspection, no calf tenderness, no pedal edema, normal range of motion Neurologic/Psychiatric: alert, normal mood/affect, oriented x 3 Skin: normal color, warm/dry, no rash Hospital Course This patient is an obese 51 y/o male who was outside shoveling snow when he became SOB and stepped indoors. He then developed central CP lasting a few minutes. He denies radiation of the pain, denies N/V, diaphoresis or light- headedness. One day earlier he had diarrhea and nausea which had resolved before he woke up. 1) CP, Demand ischemia - CAD risk includes male, age, morbid obesity, possibly untreated HTN, smoking - family Hx significant for sudden of father when pt was 5 yrs old. No events on tele. Serial troponins showed a mild elevation on second set at trop 0.056 and then back down again on third set to 0.044. He was started on ASA, Atorvastatin and Metoprolol. A lipid profile was checked and was actually quite good with LDL 101 and HDL 60. He underwent a Dobutamine stress ECHO as above. Tailman noted pt had significant hypertensive response to exercise portion when was first tried for exercise stress with BP 200/65. Thought was that while shoveling snow, he probably had significant HTN and with his LVH, this caused demand ischemia and perhaps the pain that brought him in. -start Toprol XL 12.5mg once daily -start ASA 81mg daily -counseled on healthy diet for weight loss, increasing exercise level, and elimination of EtOH binge drinking 2) HTN - as above -start Toprol XL 12.5mg once daily -f/u with PCP 3) Morbidly obese - may benefit from nutritional counseling if he is agreeable as an outpatient 4) Elevated random Glucose, Prediabetes. - HBa1C here 6.0% -counseled on ADA diet, weight loss -could start metformin as outpat -f/u with PCP Full code - heparin for prophylaxis Dispo-to home in stable condition Total Time Spent: Greater than 30 minutes This includes examination of the patient, discharge planning, medication reconciliation, and communication with other providers. Discharge Instructions Please refer to the electronic Patient Visit Report (Discharge Instructions) for additional information. Follow-Up PCP within 1 week Additional Copies To Medardo Priest III, CRNP
[2016-06-08] MEDS ORDERED: PERFLUTREN LIPID MICROSPHERE (DEFINITY) IV ONE (08:43)
--- NOTE | 2016-06-09 09:26 | DOBUTAMINE ECHO ---
*NOTICE TO RECEIVING [facility] This information is strictly Confidential and protected under [place] law. [place] law prohibits you from making any further disclosure of this information unless further disclosure is expressly permitted by the written consent of the person to whom it pertains or is authorized by law. A general authorization for the release of medical or other information is not sufficient for this purpose. Hospital accepts no responsibility if the information is made available to any other person, INCLUDING THE PATIENT. Interpretation Summary * Name: MARAH SCHREIBER II Study Date: 06/07/2016 02:35 PM BP: 195/79 mmHg * Patient Location: 2T\S\S231\S\1 HR: 83 * : 1965 (M/d/yyyy) Gender: Male Height: 71 in * Age: 51 yrs Ethnicity: [place] Weight: 357 lb * Ordering Physician: Luciano Florence * Referring Physician: KALYANI * Performed By: Rica Tripathi RDCS * * Reason For Study: CHEST PAIN * BSA: 2.7 m2 * History: CHEST PAIN * Resting echocardiogram with hyperdynamic LV systolic function. Mild concentric left ventricle hypertrophy. * The ST segment depressions following pharmacologic stress are borderline diagnostic of myocardial ischemia. The specificity is diminished by the baseline ST segment abnormalities. The echo response to pharmacologic stress was normal. No echocardiographic evidence of pharmacologic stress-induced myocardial ischemia. * The left ventricular ejection fraction increases normally with stress. The left ventricular end-systolic cavity size reduces post-stress (normal response). The left ventricular wall motion with stress is normal. Procedure Details * DOBUTAMINE ECHO, CPT#60675 * A contrast injection of Definity was performed to improve assessment of LV function. * Contrast was injected into an intravenous site in the right arm. * One vial of Definity ultrasound contrast was diluted in normal saline to a total volume of 10 ml. A total of '4' ml of solution was administered during imaging. * Lot # [id number] of Definity utilized for procedure. * Expiration date APR 12. * The attending nurse who injected the contrast agent was LEN OMER RN. Left Ventricle * The left ventricle is normal in size. * There is mild concentric left ventricular hypertrophy. * The left ventricle is hyperdynamic. * Ejection Fraction = >70 %. * Hyperdynamic resting left ventricular systolic function. Increased contractility in all LV wall segments following dobutamine stress. There was a decrease in the end systolic volume of the left ventricle following pharmacologic stress. The hyperdynamic wall motion at both rest and following stress was most prominent in the mid segment of the left ventricle. Stress Parameters * Normal sinus rhythm, right-sided conduction delay, left axis deviation, 0.4-0.[address] depression in V5 and V6. Frequent premature ventricular beats at rest. * With dobutamine infusion there was decreased frequency of ventricular ectopy. Electrocardiogram post dobutamine infusion with sinus rhythm, 1-1.[address] depression leads 2, 3, aVF, 1 millimeter horizontal to slowly downsloping ST depression in V5 and V6. * The stress portion of this study was personally supervised by the undersigned interpreting physician. * Rest heart rate was '83' BPM. * Rest blood pressure was '195/79' * Maximum heart rate achieved was 148 bpm. * Maximum heart rate was 88 % of maximum age-predicted heart rate. * Maximum blood pressure was '195/79' * Maximum Dobutamine infusion rate was '50' mcg/kg/min. * A total of .25 mg of intravenous Atropine was used to supplement Dobutamine for heart rate response. * Dobutamine infusion was terminated due to achieving target heart rate * A total of 10 mg of IV Metoprolol was administered to reverse Dobutamine-induced tachycardia. * The patient experienced no chest pain or other anginal type symptoms during or following pharmacologic stress.
[2016-06-26] MEDS ORDERED: FURO20TA PO (08:11)
--- NOTE | 2016-07-03 09:46 | CARDIOLOGY PROGRESS NOTE ---
DATE: 06/06/2016 This note pertains to the cardiology consultation ordered on Mr. Sammy Jade for 06/05/2016. The patient's case was discussed with the primary service and results of his stress echocardiogram reviewed. No formal consultation was requested after discussion of his case or was a consultation performed.
[2016-11-13] MEDS ORDERED: MULT-506 PO (10:50)
[2016-11-13] MEDS ORDERED: ASCO500T3 PO (17:59)
== END 2016-06-07 17:21 | disposition home or self-care (01) ==
LOC: ENRESERVTM → ENRESERVDT → C.EDB 18:29 → C.2T 19:33
PROVIDERS: ADMIT Internal Medicine; ATTEND Family Medicine
DX: R07.9 Chest pain, unspecified (principal); R79.89 Other specified abnormal findings of blood chemistry; E66.01 Morbid (severe) obesity due to excess calories; I10 Essential (primary) hypertension; E66.3 Overweight; R73.03 Prediabetes; F17.200 Nicotine dependence, unspecified, uncomplicated; Z88.2 Allergy status to sulfonamides; Z79.82 Long term (current) use of aspirin

== ENCOUNTER 2016-06-12 19:23 | Emergency (ER) | payer BC ==
[~2016-06-12] VITALS: Ht 180.3 cm; Wt 167.5 kg
[~2016-06-12 19:23] MED LIST changes: -ASCO500T3 PO; -BSP/5 PO; -CEPH-571 PO; -CITA10TA4 PO; -DICY20TA35 PO; -FURO20TA PO; -IBUP-103 PO; -IBUP-1050 PO; -LXP/20 PO; -LXP10 PO; -MELO15TA4 PO; -METO25TA3 PO; -MULT-506 PO; -OMEG10007 PO; -ONDA4TAB10 SL; -POTA1CAP2 PO; -PRED50TA PO; -RBX500 PO; -TPRSR/25 PO; -TRMCR130WC TOP; -ULT50 PO; -VALA1TAB31 PO
[2016-06-12 19:41] VITALS: TEMP 36.9; Ht 180.3 cm; Wt 167.5 kg
[2016-06-12 20:36] VITALS: O2SAT 95
[2016-06-12 20:38] LABS: BASO % 0.3 %; BASO ABS # 0.03 K/uL (0-0.2); COMPLETE YES; EOS % 3.9 %; HEMATOCRIT 40.5 % (42-52); IG% 0.7 %; LYMPH % 28.1 %; LYMPH ABS # 2.54 K/uL (1.2-3.4); MEAN CELL VOLUME 96.9 fL (80-100); MEAN CORPUSCULAR HEMOGLOBIN 32.5 pg (25-34); MEAN CORPUSCULAR HGB CONC 33.6 g/dl (32-36); MEAN PLATELET VOLUME 10.8 fL (7.4-10.4); MONO % 8.6 %; NEUT % 58.4 %; PLATELET COUNT 230 K/uL (130-400); RED BLOOD COUNT 4.18 M/uL (4.7-6.1); WHITE BLOOD COUNT 9.03 K/uL (4.8-10.8)
--- NOTE | 2016-06-12 20:48 | DIAGNOSTIC IMAGING REPORT ---
CHEST ONE VIEW PORTABLE CLINICAL HISTORY: Respiratory distress COMPARISON STUDY: 06/06/2016 FINDINGS: The heart is borderline enlarged. There is no focal pulmonary consolidation. There is no overt failure. There are no pleural effusions. The study is somewhat compromised due to the patient's large body habitus and portable technique.[ IMPRESSION: AP portable study. No acute findings. Electronically signed by: Lucas Daley M.D. 06/12/2016 8:47 PM Dictated Date/Time: 06/12/2016 8:46 PM
[2016-06-12 20:56] LABS: BUN/CREATININE RATIO 16.2 (10-20); CALCIUM 8.2 mg/dl (8.5-10.1); CREATININE 0.93 mg/dl (0.60-1.40); POTASSIUM 3.9 mmol/L (3.5-5.1)
[2016-06-12] MEDS ORDERED: METO25TA3 PO (20:59)
[2016-06-12 21:01] LABS: CKMB/CK RATIO 1.7 (0-3.0)
--- NOTE | 2016-06-12 21:44 | DIAGNOSTIC IMAGING REPORT ---
CT ANGIOGRAM OF THE CHEST CLINICAL HISTORY: Respiratory distress. Shortness of breath. COMPARISON STUDY: Chest x-ray dated 06/12/2016 TECHNIQUE: Following the IV administration of 115 mL of Optiray-320, CT angiogram of the thorax was performed from the thoracic inlet to the lung bases utilizing the pulmonary embolus protocol. Images are reviewed in the axial, sagittal, and coronal planes. IV contrast was administered without complication. MIP imaging was performed. CT DOSE: 847.29 mGy.cm FINDINGS: No pathologically enlarged axillary mediastinal or hilar lymph nodes were visualized. There was no evidence of thoracic aortic dilatation. There were no pulmonary artery filling defects to indicate acute pulmonary embolism. Pulmonary arterial opacification is slightly suboptimal. No pleural effusions are visualized. There are patchy dependent airspace opacities, likely atelectatic. There is no lobar consolidation. There is mild respiratory motion artifact. IMPRESSION: 1. No evidence of acute pulmonary embolism 2. Dependent airspace opacities likely atelectatic Electronically signed by: Lucas Daley M.D. 06/12/2016 9:43 PM Dictated Date/Time: 06/12/2016 9:39 PM
[2016-06-12] MEDS ORDERED: OPTIRAY 320 IV PRN (21:45)
[2016-06-12 22:29] LABS: URINE APPEARANCE CLEAR (CLEAR); URINE BILIRUBIN NEG (NEG); URINE COLOR YELLOW; URINE NITRITE NEG (NEG); URINE PH 6.5 (4.5-7.5); URINE SPECIFIC GRAVITY > 1.045 (1.000-1.030); UROBILINOGEN NEG (NEG)
[2016-06-12 22:32] LABS: MANUAL MICROSCOPIC REQUIRED? NO; REVIEW REQ? NO
[2016-06-13] MEDS ORDERED: PRED50TA PO (00:08)
[2016-06-13] MEDS ORDERED: ALBUTEROL HFA 8 GM INHALER INH ONE (00:15)
[2016-06-13 00:29] VITALS: BP 134/68; PULSE 76; O2SAT 98
--- NOTE | 2016-06-13 01:57 | EMERGENCY ROOM VISIT NOTE ---
History Report prepared by Tomasz: Flaco Dawkins Under the Supervision of: Dr. Gualberto Gonzalez M.D. First contact with patient: 20:26 Chief Complaint: SHORTNESS OF BREATH Stated Complaint: BREATHING PROBLEMS History of Present Illness The patient is a 51 year old male who presents to the Emergency Room with complaints of worsening constant shortness of breath starting last night. The patient is additionally complaining of urinary symptoms body aches, and chills. The patient states that he was in the hospital this week, and he was given a stress test and everything came back negative, and he was discharged 06/07. He states that he was given prednisone, and he states that once he stopped, his breathing got worse. He states that he was at work last night, and he feels like he couldn't keep up with everyone, and he feels like his breathing is very strained while walking. Pt denies LOC, headache, fevers, diaphoresis, visual changes, neck pain, chest pain, nausea, vomiting, abdominal pain, back pain, melena, hematochezia, numbness, weakness, lymphadenopathy, rash, or other complaints. The patient's blood pressure was 149/83. Source of History: patient Onset: last night Position: other (global) Quality: other (shortness of breath) Timing: constant, worsening Modifying Factors (Worsening): other (walking) Associated Symptoms: + chills, + urinary symptoms Review of Systems See HPI for pertinent positives and negatives. A total of ten systems were reviewed and were otherwise negative. Past Medical & Surgical Medical Problems: (1) Chest pain (2) Herniated disc (3) Hypertension (4) Hypertension Nos (5) Osteoarthritis (6) Shingles (7) Tobacco Use Disorder Surgical Problems: (1) H/O right knee surgery Social History Problems: (1) Cervicalgia Family History No pertinent family history Social History Smoking Status: Current Some Day Smoker Alcohol Use: occasionally Marital Status: single Occupation Status: employed Current/Historical Medications Scheduled Ascorbic Acid (Vitamin C), 500 MG PO DAILY Metoprolol Succ (Toprol Xl) (Toprol-Xl), 12.5 MG PO DAILY Multivitamin (Multivitamin), 1 TAB PO DAILY Prednisone (Prednisone), 50 MG PO DAILY Allergies Coded Allergies: Sulfa Antibiotics (Verified Allergy, Unknown, shortness of breath, 05/31/16) Physical Exam Vital Signs Date Time Temp Pulse Resp B/P Pulse Ox O2 Delivery O2 Flow Rate FiO2 06/13/16 00:29 76 18 134/68 98 06/12/16 21:35 81 20 127/61 93 Room Air 06/12/16 20:36 95 Room Air 06/12/16 20:30 78 06/12/16 20:25 96 Room Air 06/12/16 19:44 91 Room Air 06/12/16 19:41 36.9 89 24 92 Room Air Physical Exam GENERAL: Awake, alert, well-appearing, in no distress HENT: Normocephalic, atraumatic. Oropharynx unremarkable. EYES: Normal conjunctiva. Sclera non-icteric. NECK: Supple. No nuchal rigidity. FROM. No JVD. RESPIRATORY: Clear to auscultation. CARDIAC: Regular rate, normal rhythm. Extremities warm and well perfused. Pulses equal. ABDOMEN: Soft, non-distended. No tenderness to palpation. No rebound or guarding. No masses. RECTAL: Deferred. MUSCULOSKELETAL: Chest examination reveals no tenderness. The back is symmetrical on inspection without obvious abnormality. There is no CVA tenderness to palpation. No joint edema. LOWER EXTREMITIES: 2+ lower extremity edema. Chronic venous discoloration. Calves are equal size bilaterally and non-tender. NEURO: Normal sensorium. No sensory or motor deficits noted. SKIN: No rash or jaundice noted. Medical Decision & Procedures ER Provider Diagnostic Interpretation: X ray results as stated below per my interpretation and radiologist interpretation. Other radiology results as stated below per my review and radiologist interpretation CHEST ONE VIEW PORTABLE CLINICAL HISTORY: Respiratory distress COMPARISON STUDY: 06/06/2016 FINDINGS: The heart is borderline enlarged. There is no focal pulmonary consolidation. There is no overt failure. There are no pleural effusions. The study is somewhat compromised due to the patient's large body habitus and portable technique.[ IMPRESSION: AP portable study. No acute findings. Electronically signed by: Lucas Daley M.D. 06/12/2016 8:47 PM Dictated Date/Time: 06/12/2016 8:[address] ANGIOGRAM OF THE CHEST CLINICAL HISTORY: Respiratory distress. Shortness of breath. COMPARISON STUDY: Chest x-ray dated 06/12/2016 TECHNIQUE: Following the IV administration of 115 mL of Optiray-320, CT angiogram of the thorax was performed from the thoracic inlet to the lung bases utilizing the pulmonary embolus protocol. Images are reviewed in the axial, sagittal, and coronal planes. IV contrast was administered without complication. MIP imaging was performed. CT DOSE: 847.29 mGy.cm FINDINGS: No pathologically enlarged axillary mediastinal or hilar lymph nodes were visualized. There was no evidence of thoracic aortic dilatation. There were no pulmonary artery filling defects to indicate acute pulmonary embolism. Pulmonary arterial opacification is slightly suboptimal. No pleural effusions are visualized. There are patchy dependent airspace opacities, likely atelectatic. There is no lobar consolidation. There is mild respiratory motion artifact. IMPRESSION: 1. No evidence of acute pulmonary embolism 2. Dependent airspace opacities likely atelectatic Electronically signed by: Lucas Daley M.D. 06/12/2016 9:43 PM Dictated Date/Time: 06/12/2016 9:39 PM Laboratory Results 06/12/16 20:25 Red Blood Count 4.18, Mean Corpuscular Volume 96.9, Mean Corpuscular Hemoglobin 32.5, Mean Corpuscular Hemoglobin Concent 33.6, Mean Platelet Volume 10.8, Neutrophils (%) (Auto) 58.4, Lymphocytes (%) (Auto) 28.1, Monocytes (%) (Auto) 8.6, Eosinophils (%) (Auto) 3.9, Basophils (%) (Auto) 0.3, Neutrophils # (Auto) 5.27, Lymphocytes # (Auto) 2.54, Monocytes # (Auto) 0.78, Eosinophils # (Auto) 0.35, Basophils # (Auto) 0.03 06/12/16 20:25 Test 06/12/16 20:25 06/12/16 20:37 06/12/16 22:15 White Blood Count 9.03 K/uL (4.8-10.8) Red Blood Count 4.18 M/uL (4.7-6.1) Hemoglobin 13.6 g/dL (14.0-18.0) Hematocrit 40.5 % (42-52) Mean Corpuscular Volume 96.9 fL (80-100) Mean Corpuscular Hemoglobin 32.5 pg (25-34) Mean Corpuscular Hemoglobin Concent 33.6 g/dl (32-36) Platelet Count 230 K/uL (130-400) Mean Platelet Volume 10.8 fL (7.4-10.4) Neutrophils (%) (Auto) 58.4 % Lymphocytes (%) (Auto) 28.1 % Monocytes (%) (Auto) 8.6 % Eosinophils (%) (Auto) 3.9 % Basophils (%) (Auto) 0.3 % Neutrophils # (Auto) 5.27 K/uL (1.4-6.5) Lymphocytes # (Auto) 2.54 K/uL (1.2-3.4) Monocytes # (Auto) 0.78 K/uL (0.11-0.59) Eosinophils # (Auto) 0.35 K/uL (0-0.5) Basophils # (Auto) 0.03 K/uL (0-0.2) RDW Standard Deviation 52.3 fL (36.4-46.3) RDW Coefficient of Variation 14.9 % (11.5-14.5) Immature Granulocyte % (Auto) 0.7 % Immature Granulocyte # (Auto) 0.06 K/uL (0.00-0.02) Anion Gap 7.0 mmol/L (3-11) Est Creatinine Clear Calc Drug Dose 147.4 ml/min Estimated GFR () 109.0 Estimated GFR (Non- 94.1 BUN/Creatinine Ratio 16.2 (10-20) Calcium Level 8.2 mg/dl (8.5-10.1) Total Bilirubin 0.2 mg/dl (0.2-1) Aspartate Amino Transf (AST/SGOT) 27 U/L (15-37) Alanine Aminotransferase (ALT/SGPT) 47 U/L (12-78) Alkaline Phosphatase 106 U/L (45-117) Total Creatine Kinase 323 U/L (39-308) Creatine Kinase MB 5.6 ng/ml (0.5-3.6) Creatine Kinase MB Ratio 1.7 (0-3.0) Troponin I 0.043 ng/ml (0-0.045) Pro-B-Type Natriuretic Peptide 238 pg/ml (0-900) Total Protein 6.6 gm/dl (6.4-8.2) Albumin 3.3 gm/dl (3.4-5.0) Globulin 3.3 gm/dl (2.5-4.0) Albumin/Globulin Ratio 1.0 (0.9-2) Influenza Type A Antigen Neg for Influ A (NEG) Influenza Type B Antigen Neg for Influ B (NEG) Urine Color YELLOW Urine Appearance CLEAR (CLEAR) Urine pH 6.5 (4.5-7.5) Urine Specific [place] > 1.045 (1.000-1.030) Urine Protein NEG (NEG) Urine Glucose (UA) NEG (NEG) Urine Ketones TRACE (NEG) Urine Occult Blood NEG (NEG) Urine Nitrite NEG (NEG) Urine Bilirubin NEG (NEG) Urine Urobilinogen NEG (NEG) Urine Leukocyte Esterase NEG (NEG) Laboratory results reviewed by me Medications Administered Medications (Trade) Dose Ordered Sig/Lewis Route Start Time Stop Time Status Last Admin Dose Admin Prednisone (PredniSONE TAB) 60 mg NOW STAT PO 06/13/16 00:07 06/13/16 00:08 DC 06/13/16 00:23 60 MG Albuterol (Ventolin Hfa Inhaler) 2 puffs NOW ONCE INH 06/13/16 00:15 06/13/16 00:16 DC 06/13/16 00:23 2 PUFFS ECG Indication: SOB/dyspnea Rate (beats per minute): 81 Rhythm: normal sinus Findings: no acute ischemic change, no ectopy ED Course 2103: The patient was evaluated in room C5. A complete history and physical exam was performed. 2359: I reevaluated the patient. Discussed results and discharge instructions: He verbalized understanding and agreement. The patient is ready for discharge. 0007: Prednisone 60mg PO 0015: Albuterol 2 puffs INH Medical Decision Triage Nursing notes reviewed. The patient's presentation and history were concerning for breathing issues. Etiologies such as pneumonia, COPD, reactive airway disease, CHF, cardiac ischemia, pulmonary embolism, pneumothorax, musculoskeletal, infections, gastrointestinal, as well as others were entertained. The patient was evaluated. Record review reviewed. The patient underwent a cardiac workup on his last admission to the hospital. He did well. The patient does note that he is still smoking. He was previously on prednisone for back pain. When he was on that he was feeling better with regards to his breathing. He underwent the workup above. His CBC, chemistry panel, troponin, urinalysis and flu test were negative. He had a mild elevation of his total CK and CK-MB. He does note some sore muscles in his legs. The patient underwent CT imaging of his chest and there is no evidence of pulmonary embolus or pneumonia. No significant lung abnormalities were noted. Given his exertional dyspnea and lack of heart failure or cardiac ischemia recent workup I suspect the patient may be dealing with a primary pulmonary issue given his history of smoking. The patient also is overweight. We did discuss this. I recommended trying an inhaler and steroid Burst. The patient was amenable to this. He has a follow-up the day after tomorrow with his primary office. I also referred him to pulmonology. The patient was given the first dose of prednisone and a Ventolin inhaler in the emergency department. By the evaluation outlined above other emergent etiologies such as those listed in the differential, as well as others, were deemed relatively unlikely. The patient was informed about the findings as listed above. All questions were answered and he was pleased with the treatment. Return instructions were outlined and the patient was discharged in stable condition. The patient was referred to his PCP and pulmonology for follow-up for a recheck of the current condition. The chart was completed utilizing [employer] Speech voice recognition software. Grammatical errors, random word insertions, pronoun errors, and incomplete sentences are an occasional consequence of this system due to software limitations, ambient noise, and hardware issues. Any formal questions or concerns about the content, text, or information contained within the body of this dictation should be directly addressed to the physician for clarification. Impression Primary Impression: Shortness of breath Scribe Attestation The scribe's documentation has been prepared under my direction and personally reviewed by me in its entirety. I confirm that the note above accurately reflects all work, treatment, procedures, and medical decision making performed by me. Departure Information Dispostion Home / Self-Care Prescriptions Prednisone (Prednisone) 50 Mg Tab 50 MG PO DAILY for 4 Days, #4 TAB Prov: Gualberto Gonzalez MD 06/13/16 Referrals Medardo Priest III, CRNP (PCP) Forms HOME CARE DOCUMENTATION FORM, IMPORTANT VISIT INFORMATION, Work Instructions Patient Instructions My [facility] Additional Instructions Albuterol Inhaler: Take 2 puffs four times daily for five days, then as needed. Prednisone 50mg: Once daily until the prescription is finished. It is best to take this earlier in the day as some patients note occasional difficulty falling asleep when taken in the late evening. Acetaminophen(Tylenol) may be used for fever or pain. Use 1000mg every six hours as needed. Avoid using more than 4000mg in a 24 hour period. (AND/OR) Ibuprofen(Motrin, Advil) may be used for fever or pain. Use 600mg every six hours as needed. Take with food. Avoid using more than 2400mg in a 24 hour period. Do not use 2400mg per day for more than three consecutive days without physician direction. Prolonged inappropriate use can lead to stomach upset or ulcers. Rest and drink plenty of fluids. Avoid smoke/smoking, fumes, dust, or any triggers in the past that may have affected your breathing. Continue current medications. Return to the ER for chest pain, difficulty breathing, fevers, vomiting, worsening of your condition, or as needed. Follow up with your primary physician this week for a recheck of your current condition. Follow-up with Dr. Mendoza as discussed.
[2016-06-26] MEDS ORDERED: FURO20TA PO (08:11)
[2016-11-13] MEDS ORDERED: MULT-506 PO (10:50)
[2016-11-13] MEDS ORDERED: ASCO500T3 PO (17:59)
== END 2016-06-13 00:44 | disposition home or self-care (01) ==
LOC: C.EDB 19:25 → C.EDC 06-13 00:44
DX: R06.02 Shortness of breath (principal); I10 Essential (primary) hypertension; M19.90 Unspecified osteoarthritis, unspecified site; F17.200 Nicotine dependence, unspecified, uncomplicated; Z98.890 Other specified postprocedural states; Z79.899 Other long term (current) drug therapy; E66.3 Overweight

== ENCOUNTER → 2016-06-29 | Outpatient (CLI) | payer BC ==
[~2016-06-29] MED LIST changes: +AMOX875T PO; +ASCO500T3 PO; -ASPEC81 PO; +BSP/5 PO; +CEPH-571 PO; +CITA10TA4 PO; +DICY20TA35 PO; +FURO20TA PO; +IBUP-103 PO; +LXP/20 PO; +LXP10 PO; -METO1TAB31 PO; +MULT-506 PO; +OMEG10007 PO; +ONDA4TAB10 SL; +POTA1CAP2 PO; +TPRSR/25 PO; +TRMCR130WC TOP; +VALA1TAB31 PO
[2016-06-29 10:27] LABS: BLOOD UREA NITROGEN 17 mg/dl (7-18); CALCIUM 9.1 mg/dl (8.5-10.1); CARBON DIOXIDE 32 mmol/L (21-32); CHLORIDE 107 mmol/L (98-107); GLUCOSE 113 mg/dl (70-99); POTASSIUM 3.7 mmol/L (3.5-5.1); SODIUM 145 mmol/L (136-145)
== END | disposition home or self-care (01) ==
LOC: C.LAB1850 08:58
PROVIDERS: ATTEND Internal Medicine Interventional Cardiology
DX: E87.70 Fluid overload, unspecified (principal)

== ENCOUNTER → 2016-06-30 | Day surgery (SDC) | payer BC ==
[2016-05-31 09:12] VITALS: BMI 46.0
[2016-06-26 08:12] VITALS: Ht 180.3 cm; Wt 150.0 kg
[~2016-06-30] VITALS: Ht 180.3 cm; Wt 150.0 kg
[~2016-06-30] MED LIST changes: +ATROPINE SULFATE 0.1 MG/ML 5ML SYR IV PRN; +EpHEDrine SULFATE INJ 50 MG/ML AMP IV PRN; +LIDOCAINE HCL 2% 2 ML VIAL (20MG/ML) ONE; +MIDAZOLAM HCL 1 MG/ML 2ML VIAL ONE; +ONDANSETRON INJ 2 MG/ML 2 ML VIAL ONE; +PROPOFOL IV EMULSION 10 MG/ML 20 ML VIAL IV ONE
--- NOTE | 2016-06-30 09:46 | Endo History and Physical ---
History & Physical Date of Service: Jun 30, 2016. Chief Complaint: Diarrhea, abnormal CT scan, Abd pain Referring Physician: Medardo SANTOS History of Present Illness 51 yo CM who presents for colonoscopy secondary to diarrhea and abnormal CT scan. Past Surgical History Hx Cardiac Surgery: No Hx Internal Defibrillator: No Hx Pacemaker: No Hx Abdominal Surgery: No Hx of Implantable Prosthesis: No Hx Post-Op Nausea and Vomiting: No Hx Cancer Surgery: No Hx Thoracic Surgery: No Hx Orthopedic: Yes (RT CLAVICLE REPAIR, LEFT KNEE PATELLA X 2, RT KNEE ARTHROSCOPY) Hx Urinary Tract Surgery: No Family History IBD Social History Smoking Status: Current Some Day Smoker Hx Substance Use: No Hx Alcohol Use: Yes (social, a few drinks) Allergies Coded Allergies: Sulfa Antibiotics (Verified Allergy, Unknown, shortness of breath, 06/26/16) Current Medications Reported Home Medications Medications Dose Route/Sig Max Daily Dose Days Date Category Lasix (Furosemide) 20 Mg Tab 20 Mg PO DAILY 06/26/16 Reported Vitamin C (Ascorbic Acid) 500 Mg Tab 500 Mg PO DAILY 08/15/15 Reported Multivitamin (Multivitamins) Tab 1 Tab PO DAILY 04/19/15 Reported Vital Signs Weight (Kilograms): 150.00 Height (Feet): 5 Height (Inches): 11 Date Time Temp Pulse Resp B/P Pulse Ox O2 Delivery O2 Flow Rate FiO2 06/30/16 09:33 36.7 65 16 184/98 97 Room Air Physical Exam General Appearance: WD/WN, no apparent distress Respiratory/Chest: Auscultation: breath sounds normal Cardiovascular: Heart Auscultation: RRR Abdomen: Bowel Sounds: normal Inspection & Palpation: soft, non-distended, no tenderness, guarding & rebound Assessment and Plan Assessment: 29 yo CM who presents for EGD secondary to chronic GERD. Plan: Proceed with EGD.
--- NOTE | 2016-06-30 10:27 | GI REPORT ---
Procedure Date: 06/30/2016 9:52 AM Procedure: Colonoscopy Indications: Chronic diarrhea, Abnormal CT of the GI tract Medicines: Monitored Anesthesia Care Complications: No immediate complications. Estimated Blood Loss: Estimated blood loss: none. Procedure: Pre-Anesthesia Assessment: - Prior to the procedure, a History and Physical was performed, and patient medications and allergies were reviewed. The patient's tolerance of previous anesthesia was also reviewed. The risks and benefits of the procedure and the sedation options and risks were discussed with the patient. All questions were answered, and informed consent was obtained. Prior Anticoagulants: The patient has taken no previous anticoagulant or antiplatelet agents. ASA Grade Assessment: III - A patient with severe systemic disease. After reviewing the risks and benefits, the patient was deemed in satisfactory condition to undergo the procedure. After I obtained informed consent, the scope was passed under direct vision. Throughout the procedure, the patient's blood pressure, pulse, and oxygen saturations were monitored continuously. The scope was introduced through the anus and advanced to the ascending colon. The colonoscopy was performed without difficulty. The patient tolerated the procedure well. The quality of the bowel preparation was good. The rectum was photographed. Findings: The rectum, sigmoid colon, descending colon, transverse colon, hepatic flexure and ascending colon appeared normal. Biopsies were taken with a cold forceps for histology. Fluid aspiration for cytology was performed. Impression: - The rectum, sigmoid colon, descending colon, transverse colon, hepatic flexure and ascending colon are normal. Biopsied. Fluid aspiration performed. Recommendation: - Resume previous diet. - Continue present medications. - Repeat colonoscopy for surveillance based on pathology results. - Return to primary care physician as previously scheduled. - Perform an air contrast barium enema as an outpatient for evaluation of cecum. Ryan Roberson DO 06/30/2016 10:26:15 AM This report has been signed electronically. Note Initiated On: 06/30/2016 9:52 AM I attest to the content of the Intraoperative Record and orders documented therein, exceptions below
--- NOTE | 2016-06-30 10:34 | Anesthesiology Progress Note ---
Anesthesia Post Op Note Date & Time Jun 30, 2016 at 10:32 Vital Signs Pain Intensity: 0 Vital Signs Past 12 Hours Date Time Temp Pulse Resp B/P Pulse Ox O2 Delivery O2 Flow Rate FiO2 06/30/16 10:20 74 16 155/93 98 Room Air 06/30/16 09:33 36.7 65 16 184/98 97 Room Air Notes Mental Status: alert / awake / arousable, participated in evaluation Pt Amnestic to Procedure: Yes Nausea / Vomiting: adequately controlled Pain: adequately controlled Airway Patency, RR, SpO2: stable & adequate BP & HR: stable & adequate Hydration State: stable & adequate Anesthetic Complications: no major complications apparent
[2016-06-30 10:50] VITALS: BP 177/95; PULSE 73; O2SAT 98
--- NOTE | 2016-06-30 10:57 | Discharge Instructions ---
Endoscopy Patient Instructions Date / Procedure(s) Performed Jun 30, 2016. Colonoscopy Allergy Information Coded Allergies: Sulfa Antibiotics (Verified Allergy, Unknown, shortness of breath, 06/26/16) Discharge Date / Findings Jun 30, 2016. Incomplete colonoscopy to ascending colon Random colon biopsies Stool studies collected Medication Instructions Stopped Medication(s): Patient was told to stop the lasix. OK to resume all medications today as prescribed. Reported Home Medications Medications Dose Route/Sig Max Daily Dose Days Date Category Lasix (Furosemide) 20 Mg Tab 20 Mg PO DAILY 06/26/16 Reported Vitamin C (Ascorbic Acid) 500 Mg Tab 500 Mg PO DAILY 08/15/15 Reported Multivitamin (Multivitamins) Tab 1 Tab PO DAILY 04/19/15 Reported Provider Instructions Activity Restrictions - No exercising or heavy lifting for 24 hours. - Do not drink alcohol the day of the procedure. - Do not drive a car or operate machinery until the day after the procedure. - Do not make any important decisions or sign important papers in 24 hours after the procedure. Following Day: - Return to full activity which may include returning to work/school. Diet Start your diet with liquids and light foods (jello, soup, juice, toast). Then eat your usual diet if not nauseated. Treatment For Common After Affects For mild abdominal pain, bloating, or excessive gas: - Rest - Eat lightly - Lie on right side Recommend Barium enema to be scheduled by PCP for complete evaluation of cecum. Follow-Up Information Follow-up with Medardo SANTOS as scheduled Anesthesia Information What You Should Know You have had a procedure that required some medicine to reduce anxiety and discomfort. This treatment is called moderate sedation. After receiving the treatment, you may be sleepy, but you will be able to breathe on your own. The effects of the treatment may last for several hours. Follow these instructions along with Activity/Diet recommendations noted above: * Do NOT do anything where dizziness or clumsiness would be dangerous. * Rest quietly at home today, then you can be up and about tomorrow. * Have a responsible person stay with you the rest of today. * You may have had an I.V. today. If so, you may take the dressing off later today. Recommendations Call your doctor if: * Trouble breathing * Continuous vomiting for more than 24 hours * Temperature above 101 degrees * Severe abdominal pain or bloating * Pain not relieved by pain medicine ordered * There is increased drainage or redness from any incision * A large amount of rectal bleeding greater than 2-3 tablespoons. (If you had a polyp/s removed or have hemorrhoids, a small amount of blood - from the rectum is to be expected.) * You have any unanswered questions or concerns. IN THE EVENT OF A SERIOUS EMERGENCY, GO TO THE NEAREST EMERGENCY ROOM Your discharge instructions were prepared by provider Ryan Roberson. Patient Instructions Signature Page Sammy Jade Patient (or Guardian) Signature/Date: I have read and understand the instructions given to me by my caregivers. Caregiver/RN/Doctor Signature/Date: The above-named patient and/or guardian has received patient instructions on this date. + Original Patient Signature Page (only) stays with chart. Please make copy for patient.
== END | disposition home or self-care (01) ==
LOC: C.GI 09:03
PROVIDERS: ATTEND Internal Medicine
DX: R19.7 Diarrhea, unspecified (principal); Z98.890 Other specified postprocedural states; Z83.79 Family history of other diseases of the digestive system; F17.210 Nicotine dependence, cigarettes, uncomplicated; Z88.2 Allergy status to sulfonamides

== ENCOUNTER 2016-09-17 13:15 | Emergency (ER) | payer BC ==
[~2016-09-17] VITALS: Ht 180.3 cm; Wt 167.2 kg
[~2016-09-17 13:15] MED LIST changes: -AMOX875T PO; -ASCO500T3 PO; -ATROPINE SULFATE 0.1 MG/ML 5ML SYR IV PRN; -BSP/5 PO; -CEPH-571 PO; -CITA10TA4 PO; -DICY20TA35 PO; -EpHEDrine SULFATE INJ 50 MG/ML AMP IV PRN; -IBUP-103 PO; -LIDOCAINE HCL 2% 2 ML VIAL (20MG/ML) ONE; -LXP/20 PO; -LXP10 PO; -MIDAZOLAM HCL 1 MG/ML 2ML VIAL ONE; -MULT-506 PO; -OMEG10007 PO; -ONDA4TAB10 SL; -ONDANSETRON INJ 2 MG/ML 2 ML VIAL ONE; -POTA1CAP2 PO; -PROPOFOL IV EMULSION 10 MG/ML 20 ML VIAL IV ONE; -TPRSR/25 PO; -TRMCR130WC TOP; -VALA1TAB31 PO
[2016-09-17 13:18] VITALS: TEMP 37.1; Ht 180.3 cm; Wt 167.2 kg
[2016-09-17] MEDS ORDERED: LORAZEPAM 2 MG/ML 1 ML VIAL IV STA ×2 (13:36→15:17)
[2016-09-17] MEDS ORDERED: VALA1TAB31 PO (14:06)
[2016-09-17 14:28] LABS: POINT OF CARE PRO-BNP 545 pg/ml (0-900); POINT OF CARE TROPONIN I < 0.030 ng/ml (0-0.045)
[2016-09-17 14:50] LABS: INR 0.9 (0.9-1.1); PROTHROMBIN TIME (PATIENT) 9.6 SECONDS (9.0-12.0)
[2016-09-17 14:54] LABS: BUN/CREATININE RATIO 16.9 (10-20); CALCIUM 8.1 mg/dl (8.5-10.1); CREATININE 0.93 mg/dl (0.60-1.40); POTASSIUM 3.9 mmol/L (3.5-5.1)
[2016-09-17 14:57] LABS: BASO % 0.2 %; BASO ABS # 0.02 K/uL (0-0.2); COMPLETE YES; EOS % 4.8 %; HEMATOCRIT 44.8 % (42-52); LYMPH % 20.7 %; LYMPH ABS # 1.89 K/uL (1.2-3.4); MEAN CELL VOLUME 95.7 fL (80-100); MEAN CORPUSCULAR HGB CONC 32.4 g/dl (32-36); MONO % 6.4 %; NEUT % 66.9 %; PLATELET COUNT 261 K/uL (130-400); RED BLOOD COUNT 4.68 M/uL (4.7-6.1); WHITE BLOOD COUNT 9.13 K/uL (4.8-10.8)
[2016-09-17 15:05] LABS: THYROID STIMULATING HORMONE 0.884 uIu/ml (0.300-4.500)
--- NOTE | 2016-09-17 15:22 | EMERGENCY ROOM VISIT NOTE ---
History First contact with patient: 13:23 Chief Complaint: ANXIETY Stated Complaint: ANXIETY History of Present Illness The patient is a 51 year old male who presents to the Emergency Room with complaints of heart palpitations. The patient states that he is "anxious and afraid". He states that he works at [employer] with several coworkers. Last Sunday evening he was in the locker room when one of his coworkers told him that he smells and that he was going to file a complaint against him. The coworker did not threaten any bodily harm to the patient. The patient is concerned that he will lose his job. He states later that evening they had a meeting with the employer and he told his employer that he is not feel safe around his coworker and therefore he was sent home. The patient states since that time he feels very anxious and afraid. The patient denies any history of anxiety. The patient is followed by Medardo Priest PA-C. He is on Lasix for his hypertension. The patient denies any associated chest pain, shortness of breath. The patient denies any jaw pain or numbness and tingling in his extremities. The patient denies a history of thyroid disorder. Review of Systems 10 system review was performed and was negative unless stated otherwise history of present illness. Past Medical/Surgical History Medical Problems: (1) Chest pain (2) Herniated disc (3) Hypertension (4) Hypertension Nos (5) Osteoarthritis (6) Shingles (7) Tobacco Use Disorder Surgical Problems: (1) H/O right knee surgery Social History Problems: (1) Cervicalgia Family History No pertinent family history Social History Smoking Status: Current Every Day Smoker Alcohol Use: occasionally Marital Status: single Occupation Status: employed Current/Historical Medications Scheduled Ascorbic Acid (Vitamin C), 500 MG PO DAILY Furosemide (Lasix), 20 MG PO DAILY Multivitamin (Multivitamin), 1 TAB PO DAILY Valacyclovir Hcl (Valtrex), 1 TAB PO TID Allergies Coded Allergies: Sulfa Antibiotics (Verified Allergy, Unknown, shortness of breath, 09/17/16 ) Physical Exam Vital Signs Date Time Temp Pulse Resp B/P (MAP) Pulse Ox O2 Delivery O2 Flow Rate FiO2 09/17/16 13:34 90 09/17/16 13:18 37.1 93 22 219/91 95 Room Air Physical Exam GENERAL: Morbidly obese 51-year-old white male appears in no acute distress. MENTAL Status: Alert and oriented 3. The patient appears slightly anxious. The patient answers questions appropriately. NECK: Supple, no lymphadenopathy noted. No carotid bruits noted. LUNGS: Clear auscultation without wheezes rales or rhonchi. CARDIAC: Slightly tachycardic at a rate of 93. No murmur noted. Pulses is full and equal throughout. ABDOMEN: Positive bowel sounds all 4 quadrants. Soft, nontender to palpation without organomegaly or masses. LOWER EXTREMITIES: No cyanosis or edema noted. Medical Decision & Procedures Laboratory Results 09/17/16 13:55 Red Blood Count 4.68, Mean Corpuscular Volume 95.7, Mean Corpuscular Hemoglobin 31.0, Mean Corpuscular Hemoglobin Concent 32.4, Mean Platelet Volume 11.0, Neutrophils (%) (Auto) 66.9, Lymphocytes (%) (Auto) 20.7, Monocytes (%) (Auto) 6.4, Eosinophils (%) (Auto) 4.8, Basophils (%) (Auto) 0.2, Neutrophils # (Auto) 6.11, Lymphocytes # (Auto) 1.89, Monocytes # (Auto) 0.58, Eosinophils # (Auto) 0.44, Basophils # (Auto) 0.02 09/17/16 14:30 Test 09/17/16 13:55 09/17/16 14:04 09/17/16 14:30 White Blood Count 9.13 K/uL (4.8-10.8) Red Blood Count 4.68 M/uL (4.7-6.1) Hemoglobin 14.5 g/dL (14.0-18.0) Hematocrit 44.8 % (42-52) Mean Corpuscular Volume 95.7 fL (80-100) Mean Corpuscular Hemoglobin 31.0 pg (25-34) Mean Corpuscular Hemoglobin Concent 32.4 g/dl (32-36) Platelet Count 261 K/uL (130-400) Mean Platelet Volume 11.0 fL (7.4-10.4) Neutrophils (%) (Auto) 66.9 % Lymphocytes (%) (Auto) 20.7 % Monocytes (%) (Auto) 6.4 % Eosinophils (%) (Auto) 4.8 % Basophils (%) (Auto) 0.2 % Neutrophils # (Auto) 6.11 K/uL (1.4-6.5) Lymphocytes # (Auto) 1.89 K/uL (1.2-3.4) Monocytes # (Auto) 0.58 K/uL (0.11-0.59) Eosinophils # (Auto) 0.44 K/uL (0-0.5) Basophils # (Auto) 0.02 K/uL (0-0.2) RDW Standard Deviation 48.3 fL (36.4-46.3) RDW Coefficient of Variation 13.8 % (11.5-14.5) Immature Granulocyte % (Auto) 1.0 % Immature Granulocyte # (Auto) 0.09 K/uL (0.00-0.02) Bedside D-Dimer 411 ng/mlFEU (0-450) Bedside Troponin I < 0.030 ng/ml (0-0.045) JY-Ybs-L-Type Natriuretic Peptide 545 pg/ml (0-900) Prothrombin Time 9.6 SECONDS (9.0-12.0) Prothromb Time International Ratio 0.9 (0.9-1.1) Activated Partial Thromboplast Time 27.1 SECONDS (21.0-31.0) Partial Thromboplastin Ratio 1.0 Anion Gap 8.0 mmol/L (3-11) Est Creatinine Clear Calc Drug Dose 147.2 ml/min Estimated GFR () 109.0 Estimated GFR (Non- 94.1 BUN/Creatinine Ratio 16.9 (10-20) Calcium Level 8.1 mg/dl (8.5-10.1) Thyroid Stimulating Hormone (TSH) 0.884 uIu/ml (0.300-4.500) Medications Administered Medications (Trade) Dose Ordered Sig/Lewis Route Start Time Stop Time Status Last Admin Dose Admin Lorazepam (Ativan Inj) 1 mg NOW STAT IV 09/17/16 13:36 09/17/16 13:38 DC 09/17/16 14:09 1 MG ED Course The patient was evaluated. IV access was obtained. The patient was placed on a monitor. CBC and differential, renal profile, TSH was ordered. EKG was ordered and interpreted by myself as above. I informed the patient that he needed to get someone to pick him up before I could give him Ativan for the possible anxiety. The patient verbalized understanding. The patient was able to get a friend to pick him up and therefore he was given Ativan 1 mg IV. The patient had a run of bigeminy all in the emergency room prior to receiving the Ativan. The patient's EKG did not reveal the bigeminy and was compared to his prior EKG of 06/12/2016 without any significant change. The patient also verbalized that he had a stress test done one month ago which was normal. The patient was reevaluated was feeling slightly better. He was still slightly anxious. The patient's labs are reviewed and were unremarkable. TSH was normal. Electrolytes were normal. Troponin and d-dimer within normal range. The patient was given additional 1 mg of Ativan IV. The patient at time of discharge was requesting a note for work for this evening. The patient was informed that he will need to follow-up with his family doctor for elevated blood pressure as well as for a run of bigeminy while in the emergency room. I will recommend that he get placed on a Holter monitor. The patient was discharged home in stable condition. Medical Decision Differential diagnosis include electrolyte imbalance, hyperthyroidism, anxiety, panic attack, CAD, PE Impression Primary Impression: Acute anxiety Additional Impressions: Elevated blood pressure reading Bigeminy Departure Information Dispostion Home / Self-Care Condition GOOD Referrals Medardo Priest III, CRNP (PCP) Forms HOME CARE DOCUMENTATION FORM, IMPORTANT VISIT INFORMATION Patient Instructions My [facility] [employer] Additional Instructions Continue all medications as prescribed. Take Ativan as needed for heart palpitations. Do not drive while taking the Ativan. Off work this evening. Follow-up with Medardo Priest PA-C tomorrow or Sunday for reevaluation of your current symptoms and recheck of your blood pressure. Also recommend being placed on a Holter monitor at that time. If you have any severe chest pain, shortness of breath, diaphoresis return to ER immediately. Work Instructions Return To Work: 1 day Problem Qualifiers
[2016-09-17] MEDS ORDERED: ATIVAN 1MG HOMEPACK PO ONE (15:30)
[2016-09-17 15:41] VITALS: BP 182/102; PULSE 93; O2SAT 96
[2016-11-13] MEDS ORDERED: MULT-506 PO (10:50)
[2016-11-13] MEDS ORDERED: ASCO500T3 PO (17:59)
== END 2016-09-17 15:42 | disposition home or self-care (01) ==
LOC: C.EDB 13:19 → C.EDC 15:42
DX: F41.9 Anxiety disorder, unspecified (principal); R00.8 Other abnormalities of heart beat; I10 Essential (primary) hypertension; M19.90 Unspecified osteoarthritis, unspecified site; F17.200 Nicotine dependence, unspecified, uncomplicated; Z98.890 Other specified postprocedural states; Z79.899 Other long term (current) drug therapy

== ENCOUNTER 2016-09-26 19:14 | Emergency (ER) | payer BC ==
[~2016-09-26] VITALS: Ht 180.3 cm; Wt 147.9 kg
[~2016-09-26 19:14] MED LIST changes: +VALA1TAB31 PO
[2016-09-26 19:25] VITALS: Ht 180.3 cm; Wt 147.9 kg
[2016-09-26] MEDS ORDERED: SODIUM CHLORIDE 0.9% 1000ML 1,000 ML IV STA (19:49)
--- NOTE | 2016-09-26 20:09 | DIAGNOSTIC IMAGING REPORT ---
SINGLE VIEW CHEST CLINICAL HISTORY: Generalized weakness. FINDINGS: An AP, portable, upright chest radiograph is compared to chest x-ray and chest CT dated 06/12/2016. The examination is degraded by portable technique, large body habitus, apical positioning, and motion artifact. The heart is enlarged. There is pulmonary vascular congestion. No airspace consolidation or large pleural effusion is identified. Bibasilar atelectasis is noted. No pneumothorax is seen. The bony thorax is grossly intact. Degenerative change is present throughout the thoracic spine. IMPRESSION: 1. Cardiomegaly with mild pulmonary vascular congestion. 2. No large pleural effusion identified and there is no airspace consolidation typical for pneumonia. Electronically signed by: Tato Clifton M.D. 09/26/2016 8:08 PM Dictated Date/Time: 09/26/2016 8:06 PM
[2016-09-26] MEDS ORDERED: TRMCR130WC TOP (20:12)
[2016-09-26] MEDS ORDERED: CITA10TA4 PO (20:12)
[2016-09-26 20:30] LABS: BASO % 0.2 %; BASO ABS # 0.02 K/uL (0-0.2); COMPLETE YES; EOS % 4.3 %; IG% 0.4 %; LYMPH % 19.1 %; LYMPH ABS # 1.87 K/uL (1.2-3.4); MEAN CELL VOLUME 93.4 fL (80-100); MEAN CORPUSCULAR HEMOGLOBIN 31.2 pg (25-34); MEAN CORPUSCULAR HGB CONC 33.4 g/dl (32-36); MEAN PLATELET VOLUME 10.7 fL (7.4-10.4); MONO % 8.3 %; NEUT % 67.7 %; PLATELET COUNT 250 K/uL (130-400); RED BLOOD COUNT 5.03 M/uL (4.7-6.1); WHITE BLOOD COUNT 9.77 K/uL (4.8-10.8)
[2016-09-26 20:51] LABS: INR 0.9 (0.9-1.1); PARTIAL THROMBOPLASTIN RATIO 1.1
[2016-09-26 20:52] LABS: ALT/SGPT 34 U/L (12-78); BLOOD UREA NITROGEN 13 mg/dl (7-18); CALCIUM 8.6 mg/dl (8.5-10.1); CARBON DIOXIDE 30 mmol/L (21-32); CHLORIDE 106 mmol/L (98-107); GLUCOSE 138 mg/dl (70-99); MAGNESIUM 2.2 mg/dl (1.8-2.4); POTASSIUM 3.9 mmol/L (3.5-5.1); SODIUM 143 mmol/L (136-145)
[2016-09-26 21:00] LABS: ALKALINE PHOSPHATASE 95 U/L (45-117); AST/SGOT 21 U/L (15-37); CKMB/CK RATIO 1.6 (0-3.0)
[2016-09-26 22:11] LABS: URINE APPEARANCE CLEAR (CLEAR); URINE BILIRUBIN NEG (NEG); URINE COLOR DK YELLOW; URINE EPITHELIAL CELL AUTO >30 /lpf (0-5); URINE NITRITE NEG (NEG); URINE PH 5.5 (4.5-7.5); URINE SPECIFIC GRAVITY 1.029 (1.000-1.030); UROBILINOGEN NEG (NEG)
[2016-09-26 22:16] LABS: MANUAL MICROSCOPIC REQUIRED? NO; REVIEW REQ? NO
[2016-09-26 22:50] LABS: CKMB/CK RATIO 1.5 (0-3.0)
[2016-09-26] MEDS ORDERED: TRIAMCINOLONE ACET 0.1% CR 15 GM TUBE EXT STA (23:22)
[2016-09-26] MEDS ORDERED: BENADRYL HOME PACK 25 MG TAB PO ONE (23:30)
[2016-09-26 23:55] VITALS: BP 132/85; PULSE 80; TEMP 36.9; O2SAT 94
--- NOTE | 2016-09-27 03:09 | EMERGENCY ROOM VISIT NOTE ---
History Report prepared by Tomasz: Riac Cedillo Under the Supervision of: Dr. Gualberto Gonzalez M.D. First contact with patient: 19:32 Chief Complaint: RASH Stated Complaint: SHINGLES History of Present Illness The patient is a 51 year old male who presents to the Emergency Room with complaints of a persistent rash to his upper chest and lower back that initially started two weeks ago. He currently rates his discomfort as a 7/10 in severity. The patient states that he visited [facility] and was placed on a steroid cream after being diagnosed with shingles. He states that the areas are itchy and burning intermittently. The patient describes his rash as a blistering rash that eventually scabbed over. He states that the rash on his lower back was improving, but recently noticed the rash on his upper chest and upper neck. The patient reports that the he has had shingles in the past, noting that he was placed on Valtrex for his symptoms by his PCP. The patient additionally notes recent depression issues due to issues at work. He states that he was placed on Celexa. The patient states that he has not been back to work yet. The patient states that he has had persistent breathing difficulties since he had a recent course of Prednisone. Pt denies LOC, headache, fevers, chills, diaphoresis, visual changes, neck pain, chest pain, nausea, vomiting, abdominal pain, back pain, melena, hematochezia, urinary symptoms, numbness, weakness, lymphadenopathy, or other complaints. Source of History: patient Onset: two weeks ago Position: chest (upper), back (lower) Symptom Intensity: 7/10 Quality: other (rash) Timing: other (persistent) Associated Symptoms: + SOB (breathing difficulties) Note: Associated Symptoms: recent depression Review of Systems See HPI for pertinent positives and negatives. A total of ten systems were reviewed and were otherwise negative. Past Medical & Surgical Medical Problems: (1) Chest pain (2) Herniated disc (3) Hypertension (4) Hypertension Nos (5) Osteoarthritis (6) Shingles (7) Tobacco Use Disorder Surgical Problems: (1) H/O right knee surgery Social History Problems: (1) Cervicalgia Family History No pertinent family history Social History Smoking Status: Never Smoker Alcohol Use: occasionally Marital Status: single Occupation Status: employed Current/Historical Medications Scheduled Ascorbic Acid (Vitamin C), 500 MG PO DAILY Citalopram Hydrobromide (Citalopram Hydrobromide), 10 MG PO DAILY Multivitamin (Multivitamin), 1 TAB PO DAILY Triamcinolone Acet (Aristocort 0.1%), 1 APPLN TOP UD Scheduled PRN Furosemide (Lasix), 20 MG PO DAILY PRN for EDEMA Allergies Coded Allergies: Sulfa Antibiotics (Verified Allergy, Unknown, shortness of breath, 09/17/16 ) Physical Exam Vital Signs Date Time Temp Pulse Resp B/P (MAP) Pulse Ox O2 Delivery O2 Flow Rate FiO2 09/26/16 23:55 36.9 80 20 132/85 94 09/26/16 23:34 80 20 132/85 94 Room Air 09/26/16 20:59 88 22 94 09/26/16 20:54 85 21 89 09/26/16 20:49 86 23 91 09/26/16 20:44 85 15 92 09/26/16 20:39 80 13 93 09/26/16 20:34 87 19 92 09/26/16 20:29 85 09/26/16 20:29 83 23 89 09/26/16 20:16 Room Air 09/26/16 20:06 137/91 09/26/16 19:25 36.9 82 19 149/79 91 Room Air Physical Exam GENERAL: Awake, alert, anxious-appearing, in no distress HENT: Normocephalic, atraumatic. Oropharynx unremarkable. EYES: Normal conjunctiva. Sclera non-icteric. NECK: Supple. No nuchal rigidity. FROM. No JVD. RESPIRATORY: Clear to auscultation. CARDIAC: Regular rate, normal rhythm. Extremities warm and well perfused. Pulses equal. ABDOMEN: Soft, non-distended. No tenderness to palpation. No rebound or guarding. No masses. RECTAL: Deferred. MUSCULOSKELETAL: Chest examination reveals no tenderness. The back is symmetrical on inspection without obvious abnormality. There is no CVA tenderness to palpation. No joint edema. LOWER EXTREMITIES: Calves are equal size bilaterally and non-tender. No edema. No discoloration. NEURO: Normal sensorium. No sensory or motor deficits noted. SKIN: Mild scattered papules on the upper trunk, back, and lower extremities, no vesicles, nothing consistent with shingles, or jaundice noted. Psych: Mildly anxious mood. No suicidal or homicidal ideation. Medical Decision & Procedures ER Provider Diagnostic Interpretation: X-ray: Per my interpretation, radiologist review. SINGLE VIEW CHEST CLINICAL HISTORY: Generalized weakness. FINDINGS: An AP, portable, upright chest radiograph is compared to chest x-ray and chest CT dated 06/12/2016. The examination is degraded by portable technique, large body habitus, apical positioning, and motion artifact. The heart is enlarged. There is pulmonary vascular congestion. No airspace consolidation or large pleural effusion is identified. Bibasilar atelectasis is noted. No pneumothorax is seen. The bony thorax is grossly intact. Degenerative change is present throughout the thoracic spine. IMPRESSION: 1. Cardiomegaly with mild pulmonary vascular congestion. 2. No large pleural effusion identified and there is no airspace consolidation typical for pneumonia. Electronically signed by: Tato Clifton M.D. 09/26/2016 8:08 PM Dictated Date/Time: 09/26/2016 8:06 PM Laboratory Results 09/26/16 20:15 Red Blood Count 5.03, Mean Corpuscular Volume 93.4, Mean Corpuscular Hemoglobin 31.2, Mean Corpuscular Hemoglobin Concent 33.4, Mean Platelet Volume 10.7, Neutrophils (%) (Auto) 67.7, Lymphocytes (%) (Auto) 19.1, Monocytes (%) (Auto) 8.3, Eosinophils (%) (Auto) 4.3, Basophils (%) (Auto) 0.2, Neutrophils # (Auto) 6.61, Lymphocytes # (Auto) 1.87, Monocytes # (Auto) 0.81, Eosinophils # (Auto) 0.42, Basophils # (Auto) 0.02 09/26/16 20:15 Test 09/26/16 20:15 09/26/16 21:00 09/26/16 22:21 White Blood Count 9.77 K/uL (4.8-10.8) Red Blood Count 5.03 M/uL (4.7-6.1) Hemoglobin 15.7 g/dL (14.0-18.0) Hematocrit 47.0 % (42-52) Mean Corpuscular Volume 93.4 fL (80-100) Mean Corpuscular Hemoglobin 31.2 pg (25-34) Mean Corpuscular Hemoglobin Concent 33.4 g/dl (32-36) Platelet Count 250 K/uL (130-400) Mean Platelet Volume 10.7 fL (7.4-10.4) Neutrophils (%) (Auto) 67.7 % Lymphocytes (%) (Auto) 19.1 % Monocytes (%) (Auto) 8.3 % Eosinophils (%) (Auto) 4.3 % Basophils (%) (Auto) 0.2 % Neutrophils # (Auto) 6.61 K/uL (1.4-6.5) Lymphocytes # (Auto) 1.87 K/uL (1.2-3.4) Monocytes # (Auto) 0.81 K/uL (0.11-0.59) Eosinophils # (Auto) 0.42 K/uL (0-0.5) Basophils # (Auto) 0.02 K/uL (0-0.2) RDW Standard Deviation 47.4 fL (36.4-46.3) RDW Coefficient of Variation 14.0 % (11.5-14.5) Immature Granulocyte % (Auto) 0.4 % Immature Granulocyte # (Auto) 0.04 K/uL (0.00-0.02) Prothrombin Time 10.0 SECONDS (9.0-12.0) Prothromb Time International Ratio 0.9 (0.9-1.1) Activated Partial Thromboplast Time 28.2 SECONDS (21.0-31.0) Partial Thromboplastin Ratio 1.1 Anion Gap 7.0 mmol/L (3-11) Est Creatinine Clear Calc Drug Dose 106.2 ml/min Estimated GFR () 80.1 Estimated GFR (Non- 69.1 BUN/Creatinine Ratio 11.0 (10-20) Calcium Level 8.6 mg/dl (8.5-10.1) Magnesium Level 2.2 mg/dl (1.8-2.4) Total Bilirubin 0.6 mg/dl (0.2-1) Direct Bilirubin < 0.1 mg/dl (0-0.2) Aspartate Amino Transf (AST/SGOT) 21 U/L (15-37) Alanine Aminotransferase (ALT/SGPT) 34 U/L (12-78) Alkaline Phosphatase 95 U/L (45-117) Total Protein 7.3 gm/dl (6.4-8.2) Albumin 3.8 gm/dl (3.4-5.0) Lipase 178 U/L (73-393) Thyroid Stimulating Hormone (TSH) 1.200 uIu/ml (0.300-4.500) Urine Color DK YELLOW Urine Appearance CLEAR (CLEAR) Urine pH 5.5 (4.5-7.5) Urine Specific [place] 1.029 (1.000-1.030) Urine Protein NEG (NEG) Urine Glucose (UA) NEG (NEG) Urine Ketones TRACE (NEG) Urine Occult Blood NEG (NEG) Urine Nitrite NEG (NEG) Urine Bilirubin NEG (NEG) Urine Urobilinogen NEG (NEG) Urine Leukocyte Esterase SMALL (NEG) Urine WBC (Auto) 10-30 /hpf (0-5) Urine RBC (Auto) 0-4 /hpf (0-4) Urine Hyaline Casts (Auto) 5-10 /lpf (0-5) Urine Epithelial Cells (Auto) >30 /lpf (0-5) Urine Bacteria (Auto) NEG (NEG) Total Creatine Kinase 262 U/L (39-308) Creatine Kinase MB 3.9 ng/ml (0.5-3.6) Creatine Kinase MB Ratio 1.5 (0-3.0) Troponin I 0.019 ng/ml (0-0.045) Laboratory results reviewed by me Medications Administered Medications (Trade) Dose Ordered Sig/Lewis Route Start Time Stop Time Status Last Admin Dose Admin Sodium Chloride 1,000 ml @ 125 mls/hr Q8H STAT IV 09/26/16 19:49 09/27/16 00:44 DC 09/26/16 20:18 125 MLS/HR Diphenhydramine HCl (diphenhydrAMINE 25MG HOME PACK) 1 homepack UD ONCE PO 09/26/16 23:30 09/26/16 23:31 DC 09/26/16 23:39 1 HOMEPACK Triamcinolone Acetonide (Kenalog 0.1% Cream) 1 appln NOW STAT EXT 09/26/16 23:22 09/26/16 23:23 DC 09/26/16 23:38 1 APPLN ECG Indication: other (anxiety) Rate (beats per minute): 86 Rhythm: sinus rhythm Findings: nonspecific-ST abn, PVC, no acute ischemic change, prolonged QT ED Course 1945: The patient was evaluated in room C1B. A complete history and physical exam was performed. 1948: Ordered Sodium Chloride 1000 ml @ 125 mls/hr IV. 2210: I reevaluated the patient and he is doing well. He is in agreement for additional lab testing. 9: I reevaluated the patient and he is doing well. I discussed the exam findings with him and I discussed the treatment plan. He verbalized complete understanding and agreement. He is ready to go home. 2322: Ordered Triamcinolone Acetonide 1 appln EXT. 2330: Ordered Diphenhydramine HCl 1 homepack PO. Medical Decision Medication Reconciliation: I attest that I have personally reviewed the patient' s current medication list Blood pressure screening: Patient was found to have an elevated blood pressure and was referred to their primary doctor for recheck and further treatment. Triage Nursing notes reviewed. The patient's presentation and history were concerning for rash and shortness of breath Etiologies such as contact dermatitis, shingles, allergic reaction, follicular this, pneumonia, COPD, reactive airway disease, CHF, cardiac ischemia, pulmonary embolism, pneumothorax, musculoskeletal, infections, gastrointestinal , as well as others were entertained. Clinically the patient was evaluated and doing well. He does not have any evidence of shingles at this time. He has a mild dermatitis but there is no evidence of folliculitis. His ECG, chest x-ray, CBC, chemistry panel, coags and cardiac markers were unremarkable. His troponin was normal but his CK-MB was mildly elevated. It was like this on prior visits. The patient had repeat cardiac markers performed and there was no change in his troponin. The patient really is here for his rash and notes his chest symptoms are ongoing problems. It does not appear there is any acute issues at the moment. The patient was given a home pack of Benadryl as well as triamcinolone cream. He notes that a steroid cream helped the rash previously but he is out. The patient was given a work note. I would like for him to follow up closely with his primary physician at the [facility] physician group. He agreed. The patient was pleased with the treatment was discharged in stable condition. By the evaluation outlined above other emergent etiologies such as those listed in the differential, as well as others, were deemed relatively unlikely. The patient was educated about the findings as listed above. All questions were answered and the patient was pleased with the treatment. Return instructions were outlined and the patient was discharged in stable condition. The patient was referred to his primary physician for follow-up for a recheck of the current condition. Impression Primary Impression: Dermatitis Additional Impressions: Shortness of breath Anxiety Scribe Attestation The scribe's documentation has been prepared under my direction and personally reviewed by me in its entirety. I confirm that the note above accurately reflects all work, treatment, procedures, and medical decision making performed by me. Departure Information Dispostion Home / Self-Care Referrals Medardo Priest III, CRNP (PCP) Forms HOME CARE DOCUMENTATION FORM, IMPORTANT VISIT INFORMATION, WORK / SCHOOL INSTRUCTIONS Patient Instructions My [facility] Additional Instructions Triamcinolone cream once daily to the rash areas. Diphenhydramine: Use 25 to 50 mg every six hours for swelling, itching, or hives. This medication may cause sedation. Do not drive or perform dangerous activity if you are using this medication. Continue current medications otherwise Follow-up with your primary office tomorrow for recheck. Return to the ER immediately for spreading redness, fevers, pus-like drainage, severe pain, chest pain, difficulty breathing, or as needed. Problem Qualifiers
[2016-11-13] MEDS ORDERED: MULT-506 PO (10:50)
[2016-11-13] MEDS ORDERED: ASCO500T3 PO (17:59)
== END 2016-09-26 23:58 | disposition home or self-care (01) ==
LOC: C.EDB 19:15 → C.EDC 23:58
DX: L30.9 Dermatitis, unspecified (principal); R06.02 Shortness of breath; F41.9 Anxiety disorder, unspecified; I10 Essential (primary) hypertension; M19.90 Unspecified osteoarthritis, unspecified site

== ENCOUNTER 2016-10-09 14:12 | Emergency (ER) | payer BC ==
[~2016-10-09] VITALS: Ht 180.3 cm; Wt 168.5 kg
[~2016-10-09 14:12] MED LIST changes: +CITA10TA4 PO; +TRMCR130WC TOP; -VALA1TAB31 PO
[2016-10-09 14:15] VITALS: TEMP 37.1; Ht 180.3 cm; Wt 168.5 kg
[2016-10-09] MEDS ORDERED: BSP/5 PO (14:52)
--- NOTE | 2016-10-09 15:03 | DIAGNOSTIC IMAGING REPORT ---
RIGHT WRIST W/NAVICULAR MIN 3 VIEWS HISTORY:51 yearsMalelateral wrist pain Right COMPARISON: None available TECHNIQUE: 3 views of the right wrist with scaphoid views FINDINGS: Mild triscaphe the and first digit carpometacarpal degenerative changes are seen. No acute fracture or dislocation is identified. The scaphoid particularly appears intact. No scapholunate widening identified. There is mild positive ulnar variance of 3 mm. There is mild soft tissue swelling about the wrist without radiopaque foreign body. IMPRESSION: 1. Mild soft tissue swelling about the wrist without acute fracture or dislocation. If of further clinical concern for a radiographically occult scaphoid fracture, a follow-up wrist MRI may be considered. 2. Mild degenerative changes about the triscaphe and first digit carpometacarpal joint. 3. Slight positive ulnar variance. The above report was generated using voice recognition software. It may contain grammatical, syntax or spelling errors. Electronically signed by: Chester Hopkins M.D. 10/09/2016 3:02 PM Dictated Date/Time: 10/09/2016 2:59 PM
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
[2016-10-09 15:23] VITALS: BP 161/96; PULSE 81; O2SAT 90
[2016-11-13] MEDS ORDERED: MULT-506 PO (10:50)
[2016-11-13] MEDS ORDERED: ASCO500T3 PO (17:59)
== END 2016-10-09 15:24 | disposition home or self-care (01) ==
LOC: C.EDB 14:14 → C.EDD 15:24
DX: S69.91XA Unspecified injury of right wrist, hand and finger(s), initial encounter (principal); M25.531 Pain in right wrist; R22.31 Localized swelling, mass and lump, right upper limb; X50.9XXA Other and unspecified overexertion or strenuous movements or postures, initial encounter; Y93.55 Activity, bike riding

== ENCOUNTER 2016-11-13 18:42 | Emergency (ER) | payer BC ==
[~2016-11-13] VITALS: Ht 180.3 cm; Wt 168.9 kg
[~2016-11-13 18:42] MED LIST changes: +ASCO500T3 PO; +BSP/5 PO; -CITA10TA4 PO; -FURO20TA PO; +MULT-506 PO
[2016-11-13 18:55] VITALS: TEMP 37.3; Ht 180.3 cm; Wt 168.9 kg
[2016-11-13] MEDS ORDERED: PROPARACAINE HCL 0.5% OP SOLN 15 ML BTL OP STA (19:18)
--- NOTE | 2016-11-13 19:18 | EMERGENCY ROOM VISIT NOTE ---
ED Visit Note First contact with patient: 19:05 CHIEF COMPLAINT: Floater of the eye/head injury HISTORY OF PRESENT ILLNESS: This 51-year-old male patient presents to the emergency department , complaining of pain, floater, and foreign body sensation in the right eye. Age and states he had gotten out of the shower, and was walking into his bedroom to get dressed. He states he tripped over the cat, and hit his head on the side board of the bed. The patient states he also hit his right thigh on his shoe, and immediately felt woozy after the incident. The patient now describes a possible foreign body sensation but a floater in the right eye. He states it is in the shape of a J, and looks like a bug flying around in front of her thigh. The patient states he initially was having some irritation to the eye, and thought he may have gotten something in the eye. There has been a constant moderate pain and irritation, no redness and mild tearing in the eye. The vision has not been decreased over all. The patient does not wear contacts. The patient rates the pain as 5/10. The patient has not had previous injuries to this eye. The patient states he is also experiencing a headache. The patient states he did not lose consciousness when he fell, and there was no nausea or vomiting. The patient complains of a constant headache, on the top of his head, and rates it 5/10. The patient states the headache does seem to be worsening throughout his emergency department visit. The patient denies any bowel or bladder dysfunction. Tetanus shot is up to date. REVIEW OF SYSTEMS: A 6 system review of systems was completed with positives and pertinent negatives listed in the HPI. ALLERGIES: Sulfa MEDICATIONS: Potassium, Lexapro, multivitamin, vitamin C PMH: Anxiety, depression, hypokalemia SOCIAL HISTORY: The patient lives locally with family. He denies drug, alcohol , tobacco use. PHYSICAL EXAM: Vital Signs: Reviewed Nurse's notes, vital signs stable. Visual acuity 20/20 bilaterally. GENERAL: This is a 51-year-old male, in no acute distress, but who is uncomfortable from the eye problem. Well-developed well-nourished. EYES: The pupils are equal round and reactive to light and accommodation. EOMs are full and without tenderness. There is minimal watery discharge from the right eye which is mildly injected. There is no obvious visible foreign body or abrasion on the cornea. There is a small apparent piece of dust on the cornea. There is no obvious foreign body visible under the eyelid after lid eversion. No foreign body was seen embedded in the cornea under slit lamp exam. The cornea was clear and no hyphema was seen. Fluorescein uptake was observed with ultraviolet light without corneal abrasion. HEAD: Normocephalic, atraumatic. There is tenderness on the superior aspect of the head on palpation. EARS: External auditory canals clear without blood. NOSE: Patent without tenderness. No septal hematoma. FACE: No facial bone tenderness. NECK: Supple. There is no cervical spine tenderness. The patient does not have tenderness with movement of the neck. NEURO: The patient is alert, oriented to person place and time, and coherent. Normal mini mental status exam. Negative Romberg and pronator drift. Cerebellar function intact. RADIOLOGY: CT scan head without contrast: Findings: The paranasal sinuses and mastoid air cells are clear. The calvarium and skull base are intact. The ventricles and sulci are within normal limits. There is no mass, hematoma, midline shift, or acute infarct. Impression: No acute intracranial abnormality. EMERGENCY DEPARTMENT COURSE: I examined the patient. CT scan of the head was performed due to the patient's fall. Alcaine 2 drops were placed in the patient 's right eye. A slit lamp exam was performed as above. Verbal consent was obtained to perform the procedure. The piece of dust was removed using a moistened Q-tip. The patient continued to complain of a floater and mild foreign body sensation. The eye was flushed under a Jere lens with 1 L of sterile saline solution. The patient states he foreign body sensation has improved, however he continues to notice the floater. I discussed with the patient the importance of proper follow-up with an iv therapy nurse, and he was discharged home in good condition. DIFFERENTIAL DIAGNOSIS: foreign body, corneal abrasion, closed head injury or concussion, intracranial hemorrhage, facial fracture, and others DIAGNOSIS: Floater of the right eye DISCHARGE INSTRUCTIONS AND TREATMENT: Please use plenty of fluids drops in the eye for comfort. Please follow up with ophthalmology this week for further evaluation and management. You have been treated in the Emergency Department for a Closed Head Injury. CT Scan of your head/brain demonstrated no acute bleeding or other abnormalities. This does not completely rule out the risk for future damage to the brain. For pain control, you can use the following [id number] medicines (if >12 yo): - Regular strength (325mg/tab) Tylenol (acetaminophen) 2 tabs every 4-6 hours as needed. Do not exceed 9 tablets in a 24 hour period. Avoid taking more than 3 grams (3000 mg) of Tylenol per day. This includes any other sources of acetaminophen you may take on a regular basis. - Regular strength (200 mg/tab) Advil (ibuprofen) 1-2 tabs every 4-6 hours as needed. Do not exceed a dose of 2400 mg per day. You should relax in a quiet, dark place for the rest of the day. Avoid any possible triggers including: cigarette smoke, caffeine, nicotine, chocolate, wine, beer, loud noises or music, or bright lights. You should schedule a follow-up appointment in 2-3 days with your Primary Care Provider or established Neurologist for further evaluation and treatment of your Headache. Return to the Emergency Department if your current symptoms worsen despite treatment course outlined above, or if you develop any of the following symptoms : intractable pain despite aforementioned treatment course, visual disturbances , loss of vision, unilateral weakness or facial drooping, slurring of speech, loss of coordination, or loss of consciousness. Problem List Medical Problems: (1) Herniated disc Status: Chronic (2) Osteoarthritis Status: Chronic (3) Shingles Status: Resolved Surgical Problems: (1) H/O right knee surgery Status: Resolved Current/Historical Medications Scheduled Ascorbic Acid (Vitamin C), 500 MG PO DAILY Escitalopram Oxalate (Escitalopram Oxalate), 10 MG PO DAILY Multivitamin (Multivitamin), 1 TAB PO DAILY Potassium Chloride (Potassium Chloride Er), 10 MEQ PO DAILY Scheduled PRN Ibuprofen Tab (Advil), 200 MG PO UD PRN for Pain Allergies Coded Allergies: Sulfa Antibiotics (Verified Allergy, Unknown, shortness of breath, 10/09/16 ) Vital Signs Date Time Temp Pulse Resp B/P (MAP) Pulse Ox O2 Delivery O2 Flow Rate FiO2 11/13/16 21:23 87 20 161/90 97 11/13/16 18:55 37.3 81 18 175/91 96 Room Air Medications Administered Medications (Trade) Dose Ordered Sig/Lewis Route Start Time Stop Time Status Last Admin Dose Admin Proparacaine HCl (Alcaine 0.5% Oph Soln) 2 drops NOW STAT OP 11/13/16 19:18 11/13/16 19:20 DC 11/13/16 19:18 2 DROPS Acetaminophen (Tylenol Tab) 1,000 mg NOW STAT PO 11/13/16 20:29 11/13/16 20:32 DC 11/13/16 20:37 1,000 MG Departure Information Impression Primary Impression: Vitreous floaters of right eye Additional Impression: Closed head injury Dispostion Home / Self-Care Condition GOOD Referrals Medardo Priest III, CRNP (PCP) Lawrence Solomon M.D. Patient Instructions ED Fx Toe Closed, Flashes and Floaters, My [facility] Additional Instructions Please use plenty of fluids drops in the eye for comfort. Please follow up with ophthalmology this week for further evaluation and management. You have been treated in the Emergency Department for a Closed Head Injury. CT Scan of your head/brain demonstrated no acute bleeding or other abnormalities. This does not completely rule out the risk for future damage to the brain. For pain control, you can use the following [id number] medicines (if >12 yo): - Regular strength (325mg/tab) Tylenol (acetaminophen) 2 tabs every 4-6 hours as needed. Do not exceed 9 tablets in a 24 hour period. Avoid taking more than 3 grams (3000 mg) of Tylenol per day. This includes any other sources of acetaminophen you may take on a regular basis. - Regular strength (200 mg/tab) Advil (ibuprofen) 1-2 tabs every 4-6 hours as needed. Do not exceed a dose of 2400 mg per day. You should relax in a quiet, dark place for the rest of the day. Avoid any possible triggers including: cigarette smoke, caffeine, nicotine, chocolate, wine, beer, loud noises or music, or bright lights. You should schedule a follow-up appointment in 2-3 days with your Primary Care Provider or established Neurologist for further evaluation and treatment of your Headache. Return to the Emergency Department if your current symptoms worsen despite treatment course outlined above, or if you develop any of the following symptoms : intractable pain despite aforementioned treatment course, visual disturbances , loss of vision, unilateral weakness or facial drooping, slurring of speech, loss of coordination, or loss of consciousness. Work Instructions Return To Work: 1 day Problem Qualifiers Additional Impression: Closed head injury Encounter type: initial encounter Qualified Codes: S09.90XA - Unspecified injury of head, initial encounter
[2016-11-13] MEDS ORDERED: POTA1CAP2 PO (19:20)
[2016-11-13] MEDS ORDERED: LXP10 PO (19:20)
[2016-11-13] MEDS ORDERED: IBUP-103 PO (19:22)
--- NOTE | 2016-11-13 19:51 | DIAGNOSTIC IMAGING REPORT ---
HEAD CT NONCONTRAST CT DOSE: 749.40 mGy.cm HISTORY: fall, head injury TECHNIQUE: Multiaxial CT images of the head were performed without the use of intravenous contrast. Automated exposure control was utilized for this study. A dose lowering technique was utilized adhering to the principles of ALARA. Comparison: None. Findings: The paranasal sinuses and mastoid air cells are clear. The calvarium and skull base are intact. The ventricles and sulci are within normal limits. There is no mass, hematoma, midline shift, or acute infarct. Impression: No acute intracranial abnormality. Electronically signed by: Ritesh Vallejo M.D. 11/13/2016 7:50 PM Dictated Date/Time: 11/13/2016 7:45 PM
[2016-11-13] MEDS ORDERED: ACETAMINOPHEN 500 MG TAB PO STA (20:29)
[2016-11-13 21:23] VITALS: BP 161/90; PULSE 87; O2SAT 97
== END 2016-11-13 21:24 | disposition home or self-care (01) ==
LOC: C.EDB 18:44 → C.EDD 21:24
DX: H43.391 Other vitreous opacities, right eye (principal); S09.90XA Unspecified injury of head, initial encounter; W01.0XXA Fall on same level from slipping, tripping and stumbling without subsequent striking against object, initial encounter; F41.9 Anxiety disorder, unspecified; F32.9 Major depressive disorder, single episode, unspecified; M19.90 Unspecified osteoarthritis, unspecified site; Z79.899 Other long term (current) drug therapy; Z88.2 Allergy status to sulfonamides

== ENCOUNTER 2016-11-19 14:19 | Emergency (ER) | payer BC ==
[~2016-11-19] VITALS: Ht 177.8 cm; Wt 170.5 kg
[~2016-11-19 14:19] MED LIST changes: -BSP/5 PO; +IBUP-103 PO; +LXP10 PO; +POTA1CAP2 PO; -TRMCR130WC TOP
[2016-11-19 14:28] VITALS: TEMP 37.1; Ht 177.8 cm; Wt 170.5 kg
--- NOTE | 2016-11-19 14:55 | EMERGENCY ROOM VISIT NOTE ---
ED Visit Note First contact with patient: 14:35 CHIEF COMPLAINT: Eye pain and redness HISTORY OF PRESENT ILLNESS: This 51-year-old male patient presents to the emergency department complaining of bilateral eye pain and redness with drainage. The patient states he was seen last week here for a fall with associated floater. A CT scan was performed to rule out fracture or intracranial hemorrhage and the patient was encouraged to follow up with ophthalmology. The patient did see the slat pickler last week, and was told he has glaucoma and increased intraocular pressure. The patient was given a prescription for drops (Betimol) and is scheduled to have laser surgery later this week. The patient states he has been taking the drops twice daily. Last night, the patient began experiencing burning in his eyes. He states when he looked in the mirror, he noticed that his eyes were bloodshot and there was a watery/mucous-like discharge coming from the eyes. Patient also reports a deeper eye pain since using the drops. The patient states the pain and symptoms improve as the eyedrops seemed to wear off, however they worsen again when he used the drops. The patient states he has not touched the tip of the dropper to his eye, has not cleaned the dropper with alcohol, and has been following all instructions on use of the drops. The patient last used the drops 3 hours ago, and they are still red. The patient denies headache, dizziness, blurry vision, changes in his vision with the exception of the floater, purulent drainage, fever, upper respiratory infection symptoms, or other concerning symptoms. REVIEW OF SYSTEMS: A 6 system review of systems was performed with positives and pertinent negatives listed in the history of present illness. All other systems were reviewed and are negative. ALLERGIES: Sulfa MEDICATIONS: Timolol 0.5% eye drops, vitamin C, E citalopram, multivitamin, potassium chloride PMH: Anxiety, depression, glaucoma SOCIAL HISTORY: Patient lives locally with family. He denies drug, alcohol use. The patient admits to smoking occasionally. PHYSICAL EXAM: VITALS: Vitals are noted on the nurse's note and reviewed by myself. Vital signs stable. Visual Acuity: 20/40 OD, 20/30 OS GENERAL: This is a 51-year-old male, in no acute distress, nondiaphoretic, well- developed well-nourished. EYES: The pupils are equal round and reactive to light and accommodation. EOMs are full and without tenderness. There is a mild watery discharge from the bilateral eyes which are injected. There is no visible object or abrasion on the cornea. The cornea was clear and no hyphema was seen. Intraocular pressures: 17.0 OD, 19.0 OU. EMERGENCY DEPARTMENT COURSE: The patient was seen and evaluated as above. I did consult with Dr. Garcia, workers compensation legal secretary slat pickler, regarding direction for drops. He states if the intraocular pressures are less than 30, the patient may discontinue the drops for tonight and follow up with Dr. Tellez tomorrow. I did advise the patient to discontinue these drops and contact Dr. Tellez in the morning. I encouraged patient to use OTC artificial tears for comfort. The patient did request a note to be off of work tonight so I did give him this. The patient was discharged home in good condition. DIFFERENTIAL DIAGNOSIS: Acute conjunctivitis, medication reaction, foreign body in the cornea, glaucoma, intracranial hemorrhage, elevated intraocular pressure , and others DIAGNOSIS: Medication reaction, conjunctival irritation DISCHARGE INSTRUCTIONS & TREATMENT: He was seen in the emergency department for irritation related to the eyedrops you have been taking. I did speak with Dr. Garcia regarding the eyedrops. He did recommend that if your eye pressures were less than 30, to discontinue use of the drops until you are able to contact Dr. Tellez tomorrow morning. Your eye pressures were 17 on the right and 19 on the left. Please discontinue the eyedrops until you are able to speak with Dr. Tellez's office tomorrow. Please return to the emergency department for worsening pain, drainage, fever, headache, pressure, visual disturbances, dizziness, or other concerning symptoms. Problem List Medical Problems: (1) Herniated disc Status: Chronic (2) Osteoarthritis Status: Chronic (3) Shingles Status: Resolved Surgical Problems: (1) H/O right knee surgery Status: Resolved Current/Historical Medications Scheduled Ascorbic Acid (Vitamin C), 500 MG PO DAILY Escitalopram Oxalate (Escitalopram Oxalate), 10 MG PO HS Multivitamin (Multivitamin), 1 TAB PO QAM Potassium Chloride (Potassium Chloride Er), 10 MEQ PO DAILY Allergies Coded Allergies: Sulfa Antibiotics (Verified Allergy, Unknown, shortness of breath, 11/19/16 ) Vital Signs Date Time Temp Pulse Resp B/P (MAP) Pulse Ox O2 Delivery O2 Flow Rate FiO2 11/19/16 15:33 79 18 189/91 100 11/19/16 14:28 37.1 83 18 188/113 96 Room Air Departure Information Impression Primary Impression: Conjunctival irritation Additional Impression: Adverse reaction to eye drug Dispostion Home / Self-Care Condition GOOD Referrals Medardo Priest III, CRNP (PCP) Will Tellez D.O. Patient Instructions ED Conjunctivitis Nonspecific, My [facility] Additional Instructions He was seen in the emergency department for irritation related to the eyedrops you have been taking. I did speak with Dr. Garcia regarding the eyedrops. He did recommend that if your eye pressures were less than 30, to discontinue use of the drops until you are able to contact Dr. Tellez tomorrow morning. Your eye pressures were 17 on the right and 19 on the left. Please discontinue the eyedrops until you are able to speak with Dr. Tellez's office tomorrow. Please return to the emergency department for worsening pain, drainage, fever, headache, pressure, visual disturbances, dizziness, or other concerning symptoms. Problem Qualifiers Additional Impression: Adverse reaction to eye drug Encounter type: initial encounter Qualified Codes: T49.5X5A - Adverse effect of ophthalmological drugs and preparations, initial encounter
[2016-11-19 15:33] VITALS: BP 189/91; PULSE 79; O2SAT 100
== END 2016-11-19 15:35 | disposition home or self-care (01) ==
LOC: C.EDB 14:21 → C.EDD 15:35
DX: H10.023 Other mucopurulent conjunctivitis, bilateral (principal); T88.7XXA Unspecified adverse effect of drug or medicament, initial encounter; X58.XXXA Exposure to other specified factors, initial encounter; F41.9 Anxiety disorder, unspecified; F32.9 Major depressive disorder, single episode, unspecified; H40.9 Unspecified glaucoma; F17.200 Nicotine dependence, unspecified, uncomplicated

== ENCOUNTER 2016-12-05 17:08 | Emergency (ER) | payer BC ==
[~2016-12-05] VITALS: Ht 180.3 cm; Wt 177.0 kg
[~2016-12-05 17:08] MED LIST changes: -IBUP-103 PO
[2016-12-05 17:15] VITALS: Ht 180.3 cm; Wt 177.0 kg
[2016-12-05] MEDS ORDERED: HYDROmorphone INJ 1 MG/ML SYR IV STA ×2 (18:12→20:17)
[2016-12-05] MEDS ORDERED: KETOROLAC TROMETHAMINE 30 MG/ML VIAL IV STA (18:12)
[2016-12-05] MEDS ORDERED: SODIUM CHLORIDE 0.9% 500ML 500 ML IV STA (18:12)
--- NOTE | 2016-12-05 18:37 | EMERGENCY ROOM VISIT NOTE ---
History Report prepared by Tomasz: Jennifer Conway Under the Supervision of: Dr. Constantine Pineda M.D. First contact with patient: 18:01 Chief Complaint: FLANK PAIN Stated Complaint: RIGHT FLANK PAIN,LOWER STOMACH SWELLING History of Present Illness The patient is a 51 year old male who presents to the Emergency Room with complaints of an episode of right flank pain starting yesterday. The patient states that it is worse with movement. He reports that he has not taken anything for the pain. The patient complains of scrotal swelling and frequency of urination. The patient denies hematuria, burning with urination, and the pain being worse with a deep breath. The patient notes that he has had a pinched scrotum 3 years ago that had similar pain. He notes he has seen an urologist in the past. Source of History: patient Onset: yesterday Position: other (right flank) Quality: other ("simlar to past scrotal pinching") Timing: other (episode) Modifying Factors (Worsening): movement Associated Symptoms: + urinary symptoms (frequent urination) Note: The patient complains of scrotal swelling. The patient denies hematuria, burning with urination, and the pain being worse with deep breaths. Review of Systems See HPI for pertinent positives & negatives. A total of 10 systems reviewed and were otherwise negative. Past Medical & Surgical Medical Problems: (1) Chest pain (2) Herniated disc (3) Hypertension (4) Hypertension Nos (5) Osteoarthritis (6) Shingles (7) Tobacco Use Disorder Surgical Problems: (1) H/O right knee surgery Social History Problems: (1) Cervicalgia Family History No pertinent family history Social History Smoking Status: Current Every Day Smoker Alcohol Use: occasionally Marital Status: single Housing Status: lives alone Occupation Status: employed Current/Historical Medications Scheduled Ascorbic Acid (Vitamin C), 500 MG PO DAILY Dicyclomine Hcl (Bentyl), 20 MG PO TID Escitalopram Oxalate (Escitalopram Oxalate), 20 MG PO DAILY Multivitamin (Multivitamin), 1 TAB PO QAM Ondasetron Odt (Zofran Odt), 4 MG SL Q6H Potassium Chloride (Potassium Chloride Er), 10 MEQ PO DAILY Allergies Coded Allergies: Prednisolone (Unverified Allergy, Unknown, EYE DROPS "EYES SWELLING", 12/05) Sulfa Antibiotics (Verified Allergy, Unknown, shortness of breath, 12/05/16 ) Physical Exam Vital Signs Date Time Temp Pulse Resp B/P (MAP) Pulse Ox O2 Delivery O2 Flow Rate FiO2 12/05/16 21:46 37.1 83 18 174/112 95 12/05/16 21:02 83 18 182/93 95 12/05/16 19:26 87 12/05/16 19:22 84 20 175/91 97 Room Air 12/05/16 17:15 37.1 97 18 194/82 94 Room Air Physical Exam GENERAL: Patient is a healthy-appearing well-nourished HEAD: Normocephalic atraumatic EYES: Ocular movements intact pupils equal and react to light OROPHARYNX mucous membranes are moist no exudates present no erythema or edema present NECK: Supple no nuchal rigidity CHEST: Good equal expansion LUNGS: Clear and equal to auscultation CARDIAC: Normal S1 and S2 ABDOMEN: Soft nontender no guarding GROIN: Left scrotum is slightly enlarged. BACK: No CVA tenderness EXTREMITIES: No pain upon palpation normal muscle strength in all groups no clubbing cyanosis or edema NEURO: Patient is following commands and answering questions appropriately. Alert and oriented x3 Cranial Nerves 2-12 grossly intact Medical Decision & Procedures ER Provider Diagnostic Interpretation: Radiology results as stated below per my review and radiologist interpretation: SCROTAL ULTRASOUND CLINICAL HISTORY: Left sided scrotal pain. COMPARISON STUDY: Scrotal ultrasound April 23, 2015. TECHNIQUE: Grayscale and color and duplex Doppler sonography of the scrotum was performed. FINDINGS: The right testis measures 4.8 x 2.8 x 3 cm and the left measures 5 x 2.9 x 2.9 cm. There is no testicular mass. Color flow within each testis is symmetric. There is no evidence of epididymitis. A small left hydrocele is present. IMPRESSION: 1. Normal sonographic appearance of the testes. No evidence of testicular torsion. No testicular mass. 2. No evidence of epididymitis. 3. Small left hydrocele. Electronically signed by: Kennedy Nice M.D. 12/05/2016 7:52 PM Dictated Date/Time: 12/05/2016 7:[address] OF THE ABDOMEN AND PELVIS WITHOUT CONTRAST, STONE PROTOCOL CLINICAL HISTORY: Right sided flank pain. COMPARISON STUDY: CT of the abdomen and pelvis March 27, 2016. TECHNIQUE: Helical axial images of the abdomen and pelvis were obtained without IV or oral contrast according to renal stone protocol. A dose lowering technique was utilized adhering to the principles of ALARA. FINDINGS: No renal, ureteral or bladder calculi are present. There is no hydronephrosis or hydroureter. Evaluation the remainder of the abdomen and pelvis is suboptimal on this unenhanced exam. Unenhanced images of the liver, spleen, adrenal glands and pancreas are unremarkable. There is no peripancreatic or pericholecystic infiltration. There is no evidence for a bowel obstruction. The appendix is normal. No lymphadenopathy or abscess is identified. There are no suspicious skeletal lesions. IMPRESSION: 1. No urinary calculi or hydronephrosis. 2. No acute process within the abdomen or pelvis on unenhanced exam. Electronically signed by: Kennedy Nice M.D. 12/05/2016 8:40 PM Dictated Date/Time: 12/05/2016 8:33 PM Laboratory Results 12/05/16 18:05 Red Blood Count 4.66, Mean Corpuscular Volume 95.5, Mean Corpuscular Hemoglobin 32.2, Mean Corpuscular Hemoglobin Concent 33.7, Mean Platelet Volume 11.5, Neutrophils (%) (Auto) 66.7, Lymphocytes (%) (Auto) 18.0, Monocytes (%) (Auto) 7.9, Eosinophils (%) (Auto) 6.5, Basophils (%) (Auto) 0.2, Neutrophils # (Auto) 7.95, Lymphocytes # (Auto) 2.14, Monocytes # (Auto) 0.94, Eosinophils # (Auto) 0.77, Basophils # (Auto) 0.02 12/05/16 18:05 Test 12/05/16 18:05 12/05/16 18:35 White Blood Count 11.90 K/uL (4.8-10.8) Red Blood Count 4.66 M/uL (4.7-6.1) Hemoglobin 15.0 g/dL (14.0-18.0) Hematocrit 44.5 % (42-52) Mean Corpuscular Volume 95.5 fL (80-100) Mean Corpuscular Hemoglobin 32.2 pg (25-34) Mean Corpuscular Hemoglobin Concent 33.7 g/dl (32-36) Platelet Count 256 K/uL (130-400) Mean Platelet Volume 11.5 fL (7.4-10.4) Neutrophils (%) (Auto) 66.7 % Lymphocytes (%) (Auto) 18.0 % Monocytes (%) (Auto) 7.9 % Eosinophils (%) (Auto) 6.5 % Basophils (%) (Auto) 0.2 % Neutrophils # (Auto) 7.95 K/uL (1.4-6.5) Lymphocytes # (Auto) 2.14 K/uL (1.2-3.4) Monocytes # (Auto) 0.94 K/uL (0.11-0.59) Eosinophils # (Auto) 0.77 K/uL (0-0.5) Basophils # (Auto) 0.02 K/uL (0-0.2) RDW Standard Deviation 50.4 fL (36.4-46.3) RDW Coefficient of Variation 14.5 % (11.5-14.5) Immature Granulocyte % (Auto) 0.7 % Immature Granulocyte # (Auto) 0.08 K/uL (0.00-0.02) Nucleated RBC Absolute Count (auto) 0.02 K/uL (0-0) Nucleated Red Blood Cells % 0.2 % Anion Gap 7.0 mmol/L (3-11) Est Creatinine Clear Calc Drug Dose 141.7 ml/min Estimated GFR () 99.8 Estimated GFR (Non- 86.2 BUN/Creatinine Ratio 14.2 (10-20) Calcium Level 8.4 mg/dl (8.5-10.1) Total Bilirubin 0.3 mg/dl (0.2-1) Direct Bilirubin < 0.1 mg/dl (0-0.2) Aspartate Amino Transf (AST/SGOT) 26 U/L (15-37) Alanine Aminotransferase (ALT/SGPT) 41 U/L (12-78) Alkaline Phosphatase 108 U/L (45-117) Total Protein 6.7 gm/dl (6.4-8.2) Albumin 3.3 gm/dl (3.4-5.0) Lipase 155 U/L (73-393) Beta-Hydroxybutyric Acid 0.84 mg/dL (0.2-2.81) Urine Color YELLOW Urine Appearance CLEAR (CLEAR) Urine pH 5.5 (4.5-7.5) Urine Specific [place] 1.029 (1.000-1.030) Urine Protein NEG (NEG) Urine Glucose (UA) 3+ (NEG) Urine Ketones NEG (NEG) Urine Occult Blood NEG (NEG) Urine Nitrite NEG (NEG) Urine Bilirubin NEG (NEG) Urine Urobilinogen NEG (NEG) Urine Leukocyte Esterase NEG (NEG) Labs reviewed by ED physician. Medications Administered Medications (Trade) Dose Ordered Sig/Lewis Route Start Time Stop Time Status Last Admin Dose Admin Sodium Chloride 500 ml @ 999 mls/hr Q31M STAT IV 12/05/16 18:12 12/05/16 18:42 DC 12/05/16 18:12 999 MLS/HR Ketorolac Tromethamine (Toradol Inj) 30 mg NOW STAT IV 12/05/16 18:12 12/05/16 18:15 DC 12/05/16 18:26 30 MG Hydromorphone HCl (Dilaudid Inj) 1 mg NOW STAT IV 12/05/16 18:12 12/05/16 18:15 DC 12/05/16 18:27 1 MG Hydromorphone HCl (Dilaudid Inj) 1 mg NOW STAT IV 12/05/16 20:17 12/05/16 20:18 DC 12/05/16 20:35 1 MG Ondansetron HCl (Zofran Inj) 4 mg NOW STAT IV 12/05/16 20:17 12/05/16 20:18 DC 12/05/16 20:35 4 MG Sodium Chloride 1,000 ml @ 999 mls/hr Q1H1M STAT IV 12/05/16 20:18 12/05/16 21:18 DC 12/05/16 20:35 999 MLS/HR Dicyclomine HCl (Dicyclomine HCl 10MG Home Pack) 1 ea UD STAT PO 12/05/16 21:18 12/05/16 21:19 DC 12/05/16 21:40 1 EA Ondansetron HCl (ZOFRAN ODT 4MG Home Pack) 1 homepack UD ONCE PO 12/05/16 21:30 12/05/16 21:31 DC 12/05/16 21:40 1 HOMEPACK ED Course 1809: Past medical records reviewed. The patient was evaluated in room C5. A complete history and physical examination was performed. 1811: Ordered Dilaudid Inj 1 mg IV, Toradol Inj 30 mg IV, NSS 500 ml @ 999 mls/ hr IV. 2017: Ordered Zofran Inj 4 mg IV, Dilaudid Inj 1 mg IV. 2018: Ordered NSS 1000 ml @ 999 mls/hr IV. 2113: Upon reexamination the patient is resting comfortably. I discussed results and treatment plan with the patient. He verbalizes agreement and understanding. The patient is ready for discharge. Medical Decision Etiologies such as appendicitis, diverticulitis, PUD, biliary pathology, UTI, pancreatitis, obstruction, mesenteric ischemia, aortic pathology, infections, inflammatory bowel disease, renal colic, as well as others were entertained. This is a 51-year-old male who presents emergency department complaining of right-sided flank pain as well as left testicular pain. The patient doesn't slight elevation in his white blood cell count however is afebrile. In addition the patient had serial abdominal examinations performed on him in the emergency department and at no time did the patient exhibited a surgical abdomen. CAT scan of the abdomen pelvis does not show any acute process in addition the patient has a hydrocele on his testicle. He has no evidence of torsion on exam and I feel that the patient can be safely discharged home. I recommended a clear liquid diet for the next 48 hours. Patient was in agreement with the treatment plan. Medication Reconcilliation Current Medication List: was personally reviewed by me Blood Pressure Screening Patient's blood pressure: Elevated blood pressure Impression Primary Impression: Right flank pain Scribe Attestation The scribe's documentation has been prepared under my direction and personally reviewed by me in its entirety. I confirm that the note above accurately reflects all work, treatment, procedures, and medical decision making performed by me. Departure Information Dispostion Home / Self-Care Prescriptions Ondasetron Odt (ZOFRAN ODT) 4 Mg Tab 4 MG SL Q6H for Nausea, #6 TAB Prov: Constantine Pineda MD 12/05/16 Dicyclomine Hcl (BENTYL) 20 Mg Tab 20 MG PO TID for 7 Days, #21 TAB Prov: Constnatine Pineda MD 12/05/16 Referrals Medardo Priest III, CRNP (PCP) Forms HOME CARE DOCUMENTATION FORM, IMPORTANT VISIT INFORMATION Patient Instructions My [facility] Additional Instructions Clear liquid diet next 48 hours Follow up with Dr Hernandez's office for hydrocele You were found to have an elevated blood pressure today (>120 sytolic or >90 diastolic). Per medicare guidelines, you need to follow up with this blood pressure screening with your Primary Care Physician (PCP). For a new PCP call [phone]. You have been examined and treated today on an emergency basis only. This is not a substitute for, or an effort to provide, complete comprehensive medical care. It is impossible to recognize and treat all injuries or illnesses in a single emergency department visit. It is therefore important that you follow up closely with your PCP. Call as soon as possible for an appointment. Thank you for your time and consideration. I look forward to speaking with you again soon. Please don't hesitate to call us if you have any questions.
[2016-12-05 18:45] LABS: URINE APPEARANCE CLEAR (CLEAR); URINE BILIRUBIN NEG (NEG); URINE COLOR YELLOW; URINE NITRITE NEG (NEG); URINE PH 5.5 (4.5-7.5); URINE SPECIFIC GRAVITY 1.029 (1.000-1.030); UROBILINOGEN NEG (NEG); ZZUR CULT IF INDIC CLEAN CATCH NO
[2016-12-05 18:48] LABS: MANUAL MICROSCOPIC REQUIRED? NO; REVIEW REQ? NO
--- NOTE | 2016-12-05 19:53 | DIAGNOSTIC IMAGING REPORT ---
SCROTAL ULTRASOUND CLINICAL HISTORY: Left sided scrotal pain. COMPARISON STUDY: Scrotal ultrasound April 23, 2015. TECHNIQUE: Grayscale and color and duplex Doppler sonography of the scrotum was performed. FINDINGS: The right testis measures 4.8 x 2.8 x 3 cm and the left measures 5 x 2.9 x 2.9 cm. There is no testicular mass. Color flow within each testis is symmetric. There is no evidence of epididymitis. A small left hydrocele is present. IMPRESSION: 1. Normal sonographic appearance of the testes. No evidence of testicular torsion. No testicular mass. 2. No evidence of epididymitis. 3. Small left hydrocele. Electronically signed by: Kennedy Nice M.D. 12/05/2016 7:52 PM Dictated Date/Time: 12/05/2016 7:50 PM
[2016-12-05] MEDS ORDERED: LXP/20 PO (19:55)
[2016-12-05 20:17] LABS: BASO % 0.2 %; BASO ABS # 0.02 K/uL (0-0.2); COMPLETE YES; EOS % 6.5 %; HEMATOCRIT 44.5 % (42-52); IG% 0.7 %; LYMPH ABS # 2.14 K/uL (1.2-3.4); MEAN CELL VOLUME 95.5 fL (80-100); MEAN CORPUSCULAR HEMOGLOBIN 32.2 pg (25-34); MEAN CORPUSCULAR HGB CONC 33.7 g/dl (32-36); MEAN PLATELET VOLUME 11.5 fL (7.4-10.4); MONO % 7.9 %; NEUT % 66.7 %; PLATELET COUNT 256 K/uL (130-400); RED BLOOD COUNT 4.66 M/uL (4.7-6.1)
[2016-12-05] MEDS ORDERED: ONDANSETRON INJ 2 MG/ML 2 ML VIAL IV STA (20:17)
[2016-12-05] MEDS ORDERED: SODIUM CHLORIDE 0.9% 1000ML 1,000 ML IV STA (20:18)
[2016-12-05 20:25] LABS: ALT/SGPT 41 U/L (12-78); AST/SGOT 26 U/L (15-37); BLOOD UREA NITROGEN 14 mg/dl (7-18); BUN/CREATININE RATIO 14.2 (10-20); CALCIUM 8.4 mg/dl (8.5-10.1); CARBON DIOXIDE 30 mmol/L (21-32); CHLORIDE 104 mmol/L (98-107); GLUCOSE 278 mg/dl (70-99); POTASSIUM 3.7 mmol/L (3.5-5.1); SODIUM 141 mmol/L (136-145)
[2016-12-05 20:27] LABS: ALKALINE PHOSPHATASE 108 U/L (45-117); BETA-HYDROXYBUTYRATE 0.84 mg/dL (0.2-2.81)
--- NOTE | 2016-12-05 20:41 | DIAGNOSTIC IMAGING REPORT ---
CT OF THE ABDOMEN AND PELVIS WITHOUT CONTRAST, STONE PROTOCOL CLINICAL HISTORY: Right sided flank pain. COMPARISON STUDY: CT of the abdomen and pelvis March 27, 2016. TECHNIQUE: Helical axial images of the abdomen and pelvis were obtained without IV or oral contrast according to renal stone protocol. A dose lowering technique was utilized adhering to the principles of ALARA. FINDINGS: No renal, ureteral or bladder calculi are present. There is no hydronephrosis or hydroureter. Evaluation the remainder of the abdomen and pelvis is suboptimal on this unenhanced exam. Unenhanced images of the liver, spleen, adrenal glands and pancreas are unremarkable. There is no peripancreatic or pericholecystic infiltration. There is no evidence for a bowel obstruction. The appendix is normal. No lymphadenopathy or abscess is identified. There are no suspicious skeletal lesions. IMPRESSION: 1. No urinary calculi or hydronephrosis. 2. No acute process within the abdomen or pelvis on unenhanced exam. Electronically signed by: Kennedy Nice M.D. 12/05/2016 8:40 PM Dictated Date/Time: 12/05/2016 8:33 PM
[2016-12-05] MEDS ORDERED: BENTYL HOME PACK 10 MG VIAL PO STA (21:18)
[2016-12-05] MEDS ORDERED: ONDA4TAB10 SL (21:21)
[2016-12-05] MEDS ORDERED: DICY20TA35 PO (21:21)
[2016-12-05] MEDS ORDERED: ONDANSETRON HOME PACK 4MG OD TAB PO ONE (21:30)
[2016-12-05 21:46] VITALS: BP 174/112; PULSE 83; TEMP 37.1; O2SAT 95
== END 2016-12-05 21:55 | disposition home or self-care (01) ==
LOC: C.EDB 17:10 → C.EDC 21:55
DX: R10.9 Unspecified abdominal pain (principal); R35.0 Frequency of micturition; N50.89 Other specified disorders of the male genital organs; M19.90 Unspecified osteoarthritis, unspecified site; I10 Essential (primary) hypertension; F17.200 Nicotine dependence, unspecified, uncomplicated; Z98.890 Other specified postprocedural states

== ENCOUNTER 2016-12-17 18:30 | Emergency (ER) | payer BC ==
[~2016-12-17] VITALS: Ht 180.3 cm; Wt 176.6 kg
[~2016-12-17 18:30] MED LIST changes: +LXP/20 PO; -LXP10 PO; +ONDA4TAB10 SL
[2016-12-17 18:35] VITALS: Ht 180.3 cm; Wt 176.6 kg
--- NOTE | 2016-12-17 18:59 | EMERGENCY ROOM VISIT NOTE ---
History Report prepared by Tomasz: Ceci Manzo Under the Supervision of: Dr. Alexia Marino D.O. First contact with patient: 18:45 Chief Complaint: HEMATURIA Stated Complaint: HEMATURIA, FEELS WARM History of Present Illness The patient is a 51 year old male who presents to the Emergency Room with complaints of hematuria this morning. The patient denies having this problem before and reports that he was here a few weeks ago and was told he had a benign cyst on his scrotum. He states that he has pain with urination and that he has been diaphoretic. The patient reports having abdominal pain, but that he just ate a lot of German food. He denies a history of kidney stones or infections. Pt denies headache, change in vision, fevers, chest pain, shortness of breath, nausea, vomiting, diarrhea, and melena. The patient went to the bathroom shortly before our arrival. The specimen appears to have yellow-appearing urine with one small blood clot noted. Source of History: patient Onset: this morning Position: other (global) Quality: other (hematuria) Associated Symptoms: + diaphoresis, + abdominal pain, + urinary symptoms ( pain with urination ), No fevers, No headache, No chest pain, No SOB, No nausea , No vomiting, No melena Review of Systems See HPI for pertinent positives & negatives. A total of 10 systems reviewed and were otherwise negative. Past Medical & Surgical Medical Problems: (1) Chest pain (2) Herniated disc (3) Hypertension (4) Hypertension Nos (5) Osteoarthritis (6) Shingles (7) Tobacco Use Disorder Surgical Problems: (1) H/O right knee surgery Social History Problems: (1) Cervicalgia Family History No pertinent family history Social History Smoking Status: Current Every Day Smoker Alcohol Use: occasionally Marital Status: single Housing Status: lives alone Occupation Status: employed Current/Historical Medications Scheduled Ascorbic Acid (Vitamin C), 500 MG PO DAILY Cephalexin (Keflex), 1 CAP PO BID Escitalopram Oxalate (Escitalopram Oxalate), 20 MG PO DAILY Metoprolol Succinate (Metoprolol Succinate ER), 25 MG PO DAILY Multivitamin (Multivitamin), 1 TAB PO QAM Allergies Coded Allergies: Prednisolone (Unverified Allergy, Unknown, EYE DROPS "EYES SWELLING", 12/05) Sulfa Antibiotics (Verified Allergy, Unknown, shortness of breath, 12/05/16 ) Physical Exam Vital Signs Date Time Temp Pulse Resp B/P (MAP) Pulse Ox O2 Delivery O2 Flow Rate FiO2 12/17/16 21:19 37.4 87 18 152/82 93 12/17/16 19:45 87 20 156/84 92 Room Air 12/17/16 18:35 37.4 95 16 178/93 94 Room Air Physical Exam GENERAL: alert, well appearing, well nourished, no distress, non-toxic, obese EYE EXAM: normal conjunctiva, PERRL and EOM's grossly intact OROPHARYNX: no exudate, no erythema, lips, buccal mucosa, and tongue normal and mucous membranes are moist NECK: supple, no nuchal rigidity, no adenopathy, non-tender LUNGS: Clear to auscultation. Normal chest wall mechanics HEART: no murmurs, S1 normal and S2 normal ABDOMEN: abdomen soft, non-tender, normo-active bowel sounds, no masses, no rebound or guarding. BACK: Back is symmetrical on inspection and there is no deformity, no midline tenderness, no CVA tenderness. SKIN: no rashes and no bruising UPPER EXTREMITIES: upper extremities are grossly normal. LOWER EXTREMITIES: No pitting edema. NEURO EXAM: Normal sensorium, cranial nerves II-XII grossly intact, normal speech, no gross weakness of arms, no gross weakness of legs. No drift. Finger to nose intact. Gross sensation intact. Medical Decision & Procedures ER Provider Diagnostic Interpretation: Radiology results have been interpreted by the radiologist and reviewed by me. ABD/PELVIS NO IV OR ORAL CONT CT DOSE: 2483.46 mGy.cm HISTORY: Pain abd pain, hematuria TECHNIQUE: Multiaxial CT images of the abdomen and pelvis were performed without contrast. A dose lowering technique was utilized adhering to the principles of ALARA. COMPARISON STUDY: 12/05/2016 FINDINGS: Lung bases are clear. Distended debris filled stomach. This raise the possibility of gastroparesis versus a component of gastric L obstruction. Lung bases are clear. Liver spleen and pancreas are unremarkable. Kidneys negative for calcification or hydronephrosis. The bowel pattern is considered nonobstructive. Bladder is midline. There is no free fluid within the pelvic cul-de-sac. IMPRESSION: 1. Gastric distention with the stomach filled with retained debris. 2. Diagnostic considerations include gastroparesis versus gastric outlet obstruction and/or delay. 3. Study is otherwise negative. The above report was generated using voice recognition software. It may contain grammatical, syntax or spelling errors. Electronically signed by: Andrew Fernandez M.D. 12/17/2016 8:15 PM Dictated Date/Time: 12/17/2016 8:14 PM Laboratory Results 12/17/16 19:05 Red Blood Count 4.56, Mean Corpuscular Volume 95.4, Mean Corpuscular Hemoglobin 32.0, Mean Corpuscular Hemoglobin Concent 33.6, Mean Platelet Volume 10.6, Neutrophils (%) (Auto) 73.3, Lymphocytes (%) (Auto) 16.6, Monocytes (%) (Auto) 5.7, Eosinophils (%) (Auto) 3.8, Basophils (%) (Auto) 0.1, Neutrophils # (Auto) 6.92, Lymphocytes # (Auto) 1.57, Monocytes # (Auto) 0.54, Eosinophils # (Auto) 0.36, Basophils # (Auto) 0.01 12/17/16 19:05 Test 12/17/16 19:05 White Blood Count 9.45 K/uL (4.8-10.8) Red Blood Count 4.56 M/uL (4.7-6.1) Hemoglobin 14.6 g/dL (14.0-18.0) Hematocrit 43.5 % (42-52) Mean Corpuscular Volume 95.4 fL (80-100) Mean Corpuscular Hemoglobin 32.0 pg (25-34) Mean Corpuscular Hemoglobin Concent 33.6 g/dl (32-36) Platelet Count 255 K/uL (130-400) Mean Platelet Volume 10.6 fL (7.4-10.4) Neutrophils (%) (Auto) 73.3 % Lymphocytes (%) (Auto) 16.6 % Monocytes (%) (Auto) 5.7 % Eosinophils (%) (Auto) 3.8 % Basophils (%) (Auto) 0.1 % Neutrophils # (Auto) 6.92 K/uL (1.4-6.5) Lymphocytes # (Auto) 1.57 K/uL (1.2-3.4) Monocytes # (Auto) 0.54 K/uL (0.11-0.59) Eosinophils # (Auto) 0.36 K/uL (0-0.5) Basophils # (Auto) 0.01 K/uL (0-0.2) RDW Standard Deviation 50.7 fL (36.4-46.3) RDW Coefficient of Variation 14.4 % (11.5-14.5) Immature Granulocyte % (Auto) 0.5 % Immature Granulocyte # (Auto) 0.05 K/uL (0.00-0.02) Prothrombin Time 10.1 SECONDS (9.0-12.0) Prothromb Time International Ratio 0.9 (0.9-1.1) Urine Color DK YELLOW Urine Appearance CLEAR (CLEAR) Urine pH 5.0 (4.5-7.5) Urine Specific [place] 1.031 (1.000-1.030) Urine Protein NEG (NEG) Urine Glucose (UA) NEG (NEG) Urine Ketones TRACE (NEG) Urine Occult Blood 3+ (NEG) Urine Nitrite NEG (NEG) Urine Bilirubin NEG (NEG) Urine Urobilinogen NEG (NEG) Urine Leukocyte Esterase NEG (NEG) Urine WBC (Auto) 10-30 /hpf (0-5) Urine RBC (Auto) >30 /hpf (0-4) Urine Hyaline Casts (Auto) 1-5 /lpf (0-5) Urine Epithelial Cells (Auto) 20-30 /lpf (0-5) Urine Bacteria (Auto) NEG (NEG) Anion Gap 7.0 mmol/L (3-11) Est Creatinine Clear Calc Drug Dose 141.5 ml/min Estimated GFR () 99.8 Estimated GFR (Non- 86.2 BUN/Creatinine Ratio 15.8 (10-20) Calcium Level 8.0 mg/dl (8.5-10.1) Total Bilirubin 0.4 mg/dl (0.2-1) Aspartate Amino Transf (AST/SGOT) 21 U/L (15-37) Alanine Aminotransferase (ALT/SGPT) 33 U/L (12-78) Alkaline Phosphatase 105 U/L (45-117) Total Protein 6.4 gm/dl (6.4-8.2) Albumin 3.3 gm/dl (3.4-5.0) Globulin 3.1 gm/dl (2.5-4.0) Albumin/Globulin Ratio 1.1 (0.9-2) Date/Time Source Procedure Growth Status 9/24/17 19:05 Urine , Clean Catch Urine Culture - Final Alpha Strep. Not Enterococcus Complete Laboratory results per my review. Medications Administered Medications (Trade) Dose Ordered Sig/Lewis Route Start Time Stop Time Status Last Admin Dose Admin Cephalexin Monohydrate (Keflex Cap) 500 mg NOW ONCE PO 12/17/16 21:00 12/17/16 21:01 DC 12/17/16 21:03 500 MG ED Course 1849: The patient was evaluated in room C2B. A complete history and physical exam was performed. 2055: I updated the patient on his results. He is doing well. 2099: Ordered Keflex Cap 500 mg PO. 2119: Upon reevaluation, the patient is feeling better. I discussed the findings and the treatment plan with the patient. He verbalizes agreement and understanding. He was discharged home. Medical Decision Differential diagnosis: Etiologies such as renal colic, appendicitis, diverticulitis, mesenteric ischemia, aortic pathology, infections, inflammatory bowel disease, PUD, biliary pathology, UTI, as well as others were entertained. pt reporting sx of UTI despite UA showing mostly hematuria. No difficulty urinating otw, no retention. No other acute pathology noted on CT. VS otw stable. Discussed close f/u with urology and recheck of urine. Discussed sx to watch/return for, he verbalized understanding and was agreeable with plan. No evidence for pyelo, doubt bacteremia/sepsis, no hx of trauma, no hx of new sexual partner or STD. Medication Reconcilliation Current Medication List: was personally reviewed by me Blood Pressure Screening Patient's blood pressure: Elevated blood pressure Blood pressure disposition: Elevated BP felt to be situational Impression Primary Impression: Hematuria Additional Impression: Dysuria Scribe Attestation The scribe's documentation has been prepared under my direction and personally reviewed by me in its entirety. I confirm that the note above accurately reflects all work, treatment, procedures, and medical decision making performed by me. Departure Information Dispostion Home / Self-Care Prescriptions Cephalexin (KEFLEX) 500 Mg Cap 1 CAP PO BID for 7 Days, #14 CAP Prov: Alexia Marino, DO 12/17/16 Referrals Medardo Priest III, CRNP (PCP) Forms HOME CARE DOCUMENTATION FORM, IMPORTANT VISIT INFORMATION, WORK / SCHOOL INSTRUCTIONS Patient Instructions My [facility] Additional Instructions Please drink plenty of water. Please take the antibiotics as prescribed. If you have any worsening pain or discomfort with urination, develop abdominal pain , back pain, fevers or chills, nausea or vomiting, or unable to urinate, or seeing more and more blood with her urine, or you have any other new concerns, please return the emergency room. Please follow up with her family doctor tomorrow or Sunday. If your symptoms are not improving, or you continue to see blood in your urine, you need to follow-up with your urologist. Problem Qualifiers Primary Impression: Hematuria Hematuria type: unspecified type Qualified Codes: R31.9 - Hematuria, unspecified
[2016-12-17] MEDS ORDERED: TPRSR/25 PO (19:10)
[2016-12-17 19:21] LABS: BASO % 0.1 %; BASO ABS # 0.01 K/uL (0-0.2); COMPLETE YES; EOS % 3.8 %; HEMATOCRIT 43.5 % (42-52); IG% 0.5 %; LYMPH % 16.6 %; LYMPH ABS # 1.57 K/uL (1.2-3.4); MEAN CELL VOLUME 95.4 fL (80-100); MEAN CORPUSCULAR HGB CONC 33.6 g/dl (32-36); MEAN PLATELET VOLUME 10.6 fL (7.4-10.4); MONO % 5.7 %; NEUT % 73.3 %; PLATELET COUNT 255 K/uL (130-400); RED BLOOD COUNT 4.56 M/uL (4.7-6.1); WHITE BLOOD COUNT 9.45 K/uL (4.8-10.8)
[2016-12-17 19:26] LABS: URINE APPEARANCE CLEAR (CLEAR); URINE BILIRUBIN NEG (NEG); URINE COLOR DK YELLOW; URINE EPITHELIAL CELL AUTO 20-30 /lpf (0-5); URINE NITRITE NEG (NEG); URINE SPECIFIC GRAVITY 1.031 (1.000-1.030); UROBILINOGEN NEG (NEG); ZZUR CULT IF INDIC CLEAN CATCH YES
[2016-12-17 19:27] LABS: MANUAL MICROSCOPIC REQUIRED? NO; REVIEW REQ? NO
[2016-12-17 19:29] LABS: INR 0.9 (0.9-1.1); PROTHROMBIN TIME (PATIENT) 10.1 SECONDS (9.0-12.0)
[2016-12-17 19:47] LABS: BUN/CREATININE RATIO 15.8 (10-20); POTASSIUM 3.6 mmol/L (3.5-5.1)
[2016-12-17 19:50] LABS: ALB/GLOB RATIO 1.1 (0.9-2)
--- NOTE | 2016-12-17 20:17 | DIAGNOSTIC IMAGING REPORT ---
ABD/PELVIS NO IV OR ORAL CONT CT DOSE: 2483.46 mGy.cm HISTORY: Pain abd pain, hematuria TECHNIQUE: Multiaxial CT images of the abdomen and pelvis were performed without contrast. A dose lowering technique was utilized adhering to the principles of ALARA. COMPARISON STUDY: 12/05/2016 FINDINGS: Lung bases are clear. Distended debris filled stomach. This raise the possibility of gastroparesis versus a component of gastric L obstruction. Lung bases are clear. Liver spleen and pancreas are unremarkable. Kidneys negative for calcification or hydronephrosis. The bowel pattern is considered nonobstructive. Bladder is midline. There is no free fluid within the pelvic cul-de-sac. IMPRESSION: 1. Gastric distention with the stomach filled with retained debris. 2. Diagnostic considerations include gastroparesis versus gastric outlet obstruction and/or delay. 3. Study is otherwise negative. The above report was generated using voice recognition software. It may contain grammatical, syntax or spelling errors. Electronically signed by: Andrew Fernandez M.D. 12/17/2016 8:15 PM Dictated Date/Time: 12/17/2016 8:14 PM
[2016-12-17] MEDS ORDERED: CEPHALEXIN MONOHYDRATE 250 MG CAP PO ONE (21:00)
[2016-12-17] MEDS ORDERED: CEPH-571 PO (21:02)
[2016-12-17 21:19] VITALS: BP 152/82; PULSE 87; TEMP 37.4; O2SAT 93
--- NOTE | 2016-12-19 11:13 | Pharmacy Progress Note ---
ED Pharmacist Culture FollowUp Date of Service: Dec 19, 2016. Patient was sent home with a prescription for cephalexin X7 days, which should cover the alpha strep growing from the patient's urine culture.
== END 2016-12-17 21:19 | disposition home or self-care (01) ==
LOC: C.EDB 18:32 → C.EDC 21:19
DX: R31.9 Hematuria, unspecified (principal); R30.0 Dysuria; I10 Essential (primary) hypertension; M19.90 Unspecified osteoarthritis, unspecified site; F17.210 Nicotine dependence, cigarettes, uncomplicated; Z79.899 Other long term (current) drug therapy

== ENCOUNTER 2017-01-20 21:27 | Emergency (ER) | payer BC ==
[~2017-01-20] VITALS: Ht 180.3 cm; Wt 174.4 kg
[~2017-01-20 21:27] MED LIST changes: -ONDA4TAB10 SL; -POTA1CAP2 PO; +TPRSR/25 PO
[2017-01-20 21:30] VITALS: Ht 180.3 cm; Wt 174.4 kg
[2017-01-20] MEDS ORDERED: SODIUM CHLORIDE 0.9% 1000ML 1,000 ML IV STA (21:51)
[2017-01-20] MEDS ORDERED: ONDANSETRON INJ 2 MG/ML 2 ML VIAL IV STA (21:51)
[2017-01-20] MEDS ORDERED: MoRPHine SULFATE 4 MG/ML 1 ML CARP\\VIAL IV STA (21:51)
[2017-01-20 22:03] LABS: BASO % 0.3 %; BASO ABS # 0.04 K/uL (0-0.2); COMPLETE YES; EOS % 3.3 %; HEMATOCRIT 45.5 % (42-52); IG% 0.5 %; LYMPH % 13.5 %; LYMPH ABS # 1.94 K/uL (1.2-3.4); MEAN CELL VOLUME 96.2 fL (80-100); MEAN CORPUSCULAR HEMOGLOBIN 32.1 pg (25-34); MEAN CORPUSCULAR HGB CONC 33.4 g/dl (32-36); MEAN PLATELET VOLUME 10.4 fL (7.4-10.4); MONO % 9.2 %; NEUT % 73.2 %; PLATELET COUNT 250 K/uL (130-400); RED BLOOD COUNT 4.73 M/uL (4.7-6.1); WHITE BLOOD COUNT 14.41 K/uL (4.8-10.8)
[2017-01-20] MEDS ORDERED: OMEG10007 PO (22:03)
[2017-01-20] MEDS ORDERED: OPTIRAY 320 IV PRN (22:15)
[2017-01-20 22:18] LABS: CALCIUM 8.9 mg/dl (8.5-10.1); CREATININE 1.28 mg/dl (0.60-1.40)
[2017-01-20 22:25] LABS: ISTAT CREATININE 1.3 mg/dl (0.6-1.3); ISTAT HEMOGLOBIN 15.6 g/dl (14.0-18.0); ISTAT IONIZED CALCIUM 1.13 mmol/l (1.12-1.32)
--- NOTE | 2017-01-20 22:37 | DIAGNOSTIC IMAGING REPORT ---
CHEST ONE VIEW PORTABLE CLINICAL HISTORY: ABDOMINAL PAIN/GI pain COMPARISON STUDY: 09/26/2016 FINDINGS: The bones soft tissues and hemidiaphragms are normal. The cardiomediastinal silhouette is normal. The lungs are clear. The pulmonary vasculature is normal. IMPRESSION: Negative chest. The above report was generated using voice recognition software. It may contain grammatical, syntax or spelling errors. Electronically signed by: Andrew Fernandez M.D. 01/20/2017 10:35 PM Dictated Date/Time: 01/20/2017 10:35 PM
--- NOTE | 2017-01-20 22:51 | DIAGNOSTIC IMAGING REPORT ---
ABD/PELVIS IV CONTRAST ONLY CT DOSE: 2281.00 mGy.cm HISTORY: Pain L sided flank/ab pain, recent UTI, obese TECHNIQUE: Multiaxial CT images of the abdomen and pelvis were performed following the use of intravenous contrast. A dose lowering technique was utilized adhering to the principles of ALARA. COMPARISON STUDY: 12/17/2016 FINDINGS: Lung bases are clear. Mild fatty infiltration of the liver. Spleen adrenal glands and kidneys are unremarkable. Bowel pattern is nonobstructive. Several slightly distended loops of small bowel suggesting mild nonspecific enteritis. No evidence for abscess or collection. No obstructive changes. The appendix appears unremarkable. Abdominal aorta shows mild left ischemic change. The gastric distention on the prior study is no longer appreciated. IMPRESSION: 1. Mild nonspecific enteritis. 2. No evidence for abscess collection or obstruction. 3. Mild fatty infiltration of liver. 4. Otherwise negative study. The above report was generated using voice recognition software. It may contain grammatical, syntax or spelling errors. Electronically signed by: Andrew Fernandez M.D. 01/20/2017 10:50 PM Dictated Date/Time: 01/20/2017 10:46 PM
[2017-01-20] MEDS ORDERED: COUGH DROP (SUGAR FREE) LOZ 24 LOZ/1 BOX PO STA (23:23)
[2017-01-20 23:30] LABS: URINE APPEARANCE CLEAR (CLEAR); URINE BILIRUBIN NEG (NEG); URINE COLOR DK YELLOW; URINE EPITHELIAL CELL AUTO 20-30 /lpf (0-5); URINE NITRITE NEG (NEG); URINE SPECIFIC GRAVITY > 1.045 (1.000-1.030); UROBILINOGEN NEG (NEG); ZZUR CULT IF INDIC CLEAN CATCH NO
[2017-01-20] MEDS ORDERED: DICYCLOMINE HCL 10 MG CAP PO ONE (23:30)
[2017-01-20] MEDS ORDERED: AMOXICILLIN/CLAVULANATE TAB 875 MG TAB PO ONE (23:30)
[2017-01-20 23:56] LABS: MANUAL MICROSCOPIC REQUIRED? NO; REVIEW REQ? NO
[2017-01-21] MEDS ORDERED: DICY20TA35 PO (00:08)
[2017-01-21] MEDS ORDERED: AMOX875T PO (00:08)
--- NOTE | 2017-01-21 00:09 | EMERGENCY ROOM VISIT NOTE ---
History Report prepared by Tomasz: Jill Morales Under the Supervision of: Dr. Eber Casillas M.D. First contact with patient: 21:35 Chief Complaint: FLANK PAIN Stated Complaint: LEFT FLANK PAIN, BAD COLD History of Present Illness The patient is a 51 year old white male with a past medical history of anxiety, spinal stenosis, vertigo, gallbladder polyp who presents to the ED with a cc of persistent left flank pain beginning 1100 today. The pain feels like he got punched. Positive cold symptoms, sore throat, cough, nausea, ear clogging. Negative vomiting, urinary symptoms. His last BM yesterday was normal. Pt denies recent travel. He was recently on Keflex for a UTI which he finished 1 week ago. He denies any trauma. He is not on any blood thinners. Source of History: patient Onset: 1100 today Position: other (left flank) Quality: other (like he got punched) Timing: other (persistent) Associated Symptoms: + sorethroat, + cough, + nausea, No vomiting, No urinary symptoms Review of Systems See HPI for pertinent positives and negatives. A total of ten systems were reviewed and were otherwise negative. Past Medical & Surgical Medical Problems: (1) Chest pain (2) Herniated disc (3) Hypertension (4) Hypertension Nos (5) Osteoarthritis (6) Shingles (7) Tobacco Use Disorder Surgical Problems: (1) H/O right knee surgery Social History Problems: (1) Cervicalgia Family History No pertinent family history Social History Smoking Status: Current Some Day Smoker Alcohol Use: occasionally Marital Status: single Housing Status: lives alone Occupation Status: employed Current/Historical Medications Scheduled Amoxicillin & Pot Clavulanate (Augmentin 875-125 mg), 875 MG PO BID Ascorbic Acid (Vitamin C), 500 MG PO DAILY Dicyclomine Hcl (Bentyl), 20 MG PO BID Escitalopram Oxalate (Escitalopram Oxalate), 20 MG PO DAILY Fish Oil (Manning-3), 1 CAP PO DAILY Metoprolol Succinate (Metoprolol Succinate ER), 25 MG PO DAILY Multivitamin (Multivitamin), 1 TAB PO QAM Allergies Coded Allergies: Prednisone (Verified Allergy, Severe, SOB, "CHEST TIGHT", "BLOATED FEELING "., 01/20/17) Sulfa Antibiotics (Verified Allergy, Severe, ANAPHYLAXIS-SOB, 01/20/17) Physical Exam Vital Signs Date Time Temp Pulse Resp B/P (MAP) Pulse Ox O2 Delivery O2 Flow Rate FiO2 01/21/17 00:30 37.7 87 14 141/79 93 01/21/17 00:02 141/79 01/21/17 00:00 87 14 93 01/20/17 23:31 130/79 01/20/17 23:30 87 10 91 01/20/17 23:22 84 20 117/71 93 Nasal Cannula 2.0 01/20/17 22:48 131/72 93 Nasal Cannula 2.0 01/20/17 22:14 88 01/20/17 22:00 92 Nasal Cannula 2.0 01/20/17 21:42 37.7 87 20 141/73 86 01/20/17 21:30 37.2 83 25 144/78 98 Room Air Physical Exam GENERAL: Awake, alert, well-appearing, NAD, obese HENT: Normocephalic, atraumatic. EYES: Normal conjunctiva. Sclera non-icteric. NECK: Supple. No nuchal rigidity. FROM. RESPIRATORY: CTAB, no rhonchi, wheezing, crackles CARDIAC: RRR, no MRG ABDOMEN: Soft, NTND, BS+ MSK: No chest wall TTP, no LE edema. Left sided CVA tenderness. Left sided flank pain. NEURO: GCS 15, CN 2-12 intact, moves all 4s on command SKIN: No rash or jaundice noted. Medical Decision & Procedures ER Provider Diagnostic Interpretation: Radiology results as stated below per my review and radiologist interpretation: CHEST ONE VIEW PORTABLE CLINICAL HISTORY: ABDOMINAL PAIN/GI pain COMPARISON STUDY: 09/26/2016 FINDINGS: The bones soft tissues and hemidiaphragms are normal. The cardiomediastinal silhouette is normal. The lungs are clear. The pulmonary vasculature is normal. IMPRESSION: Negative chest. The above report was generated using voice recognition software. It may contain grammatical, syntax or spelling errors. Electronically signed by: Andrew Fernandez M.D. 01/20/2017 10:35 PM Dictated Date/Time: 01/20/2017 10:35 PM ABD/PELVIS IV CONTRAST ONLY CT DOSE: 2281.00 mGy.cm HISTORY: Pain L sided flank/ab pain, recent UTI, obese TECHNIQUE: Multiaxial CT images of the abdomen and pelvis were performed following the use of intravenous contrast. A dose lowering technique was utilized adhering to the principles of ALARA. COMPARISON STUDY: 12/17/2016 FINDINGS: Lung bases are clear. Mild fatty infiltration of the liver. Spleen adrenal glands and kidneys are unremarkable. Bowel pattern is nonobstructive. Several slightly distended loops of small bowel suggesting mild nonspecific enteritis. No evidence for abscess or collection. No obstructive changes. The appendix appears unremarkable. Abdominal aorta shows mild left ischemic change. The gastric distention on the prior study is no longer appreciated. IMPRESSION: 1. Mild nonspecific enteritis. 2. No evidence for abscess collection or obstruction. 3. Mild fatty infiltration of liver. 4. Otherwise negative study. The above report was generated using voice recognition software. It may contain grammatical, syntax or spelling errors. Electronically signed by: Andrew Fernandez M.D. 01/20/2017 10:50 PM Dictated Date/Time: 01/20/2017 10:46 PM Laboratory Results 01/20/17 21:45 Red Blood Count 4.73, Mean Corpuscular Volume 96.2, Mean Corpuscular Hemoglobin 32.1, Mean Corpuscular Hemoglobin Concent 33.4, Mean Platelet Volume 10.4, Neutrophils (%) (Auto) 73.2, Lymphocytes (%) (Auto) 13.5, Monocytes (%) (Auto) 9.2, Eosinophils (%) (Auto) 3.3, Basophils (%) (Auto) 0.3, Neutrophils # (Auto) 10.56, Lymphocytes # (Auto) 1.94, Monocytes # (Auto) 1.32, Eosinophils # (Auto) 0.48, Basophils # (Auto) 0.04 01/20/17 21:45 Test 01/20/17 21:45 01/20/17 22:15 01/20/17 23:10 White Blood Count 14.41 K/uL (4.8-10.8) Red Blood Count 4.73 M/uL (4.7-6.1) Hemoglobin 15.2 g/dL (14.0-18.0) Hematocrit 45.5 % (42-52) Mean Corpuscular Volume 96.2 fL (80-100) Mean Corpuscular Hemoglobin 32.1 pg (25-34) Mean Corpuscular Hemoglobin Concent 33.4 g/dl (32-36) Platelet Count 250 K/uL (130-400) Mean Platelet Volume 10.4 fL (7.4-10.4) Neutrophils (%) (Auto) 73.2 % Lymphocytes (%) (Auto) 13.5 % Monocytes (%) (Auto) 9.2 % Eosinophils (%) (Auto) 3.3 % Basophils (%) (Auto) 0.3 % Neutrophils # (Auto) 10.56 K/uL (1.4-6.5) Lymphocytes # (Auto) 1.94 K/uL (1.2-3.4) Monocytes # (Auto) 1.32 K/uL (0.11-0.59) Eosinophils # (Auto) 0.48 K/uL (0-0.5) Basophils # (Auto) 0.04 K/uL (0-0.2) RDW Standard Deviation 50.2 fL (36.4-46.3) RDW Coefficient of Variation 14.2 % (11.5-14.5) Immature Granulocyte % (Auto) 0.5 % Immature Granulocyte # (Auto) 0.07 K/uL (0.00-0.02) Est Creatinine Clear Calc Drug Dose 109.7 ml/min Estimated GFR () 74.1 Estimated GFR (Non- 63.9 BUN/Creatinine Ratio 17.0 (10-20) Calcium Level 8.9 mg/dl (8.5-10.1) Total Bilirubin 0.4 mg/dl (0.2-1) Direct Bilirubin 0.1 mg/dl (0-0.2) Aspartate Amino Transf (AST/SGOT) 25 U/L (15-37) Alanine Aminotransferase (ALT/SGPT) 34 U/L (12-78) Alkaline Phosphatase 116 U/L (45-117) Total Protein 7.4 gm/dl (6.4-8.2) Albumin 3.3 gm/dl (3.4-5.0) Lipase 121 U/L (73-393) Bedside Hemoglobin 15.6 g/dl (14.0-18.0) Bedside Hematocrit 46 % (42-52) Bedside Sodium 141 mEq/L (135-144) Bedside Potassium 3.9 mEq/L (3.3-5.0) Bedside Chloride 98 mEq/L (101-112) Bedside Total CO2 30 mEq/l (24-31) Anion Gap 17.0 mmol/L (16-25) Bedside Blood Urea Nitrogen 24 mg/dl (7-18) Bedside Creatinine 1.3 mg/dl (0.6-1.3) Bedside Glucose (other) 138 mg/dl (70-99) Bedside Ionized Calcium (Silvina) 1.13 mmol/l (1.12-1.32) Urine Color DK YELLOW Urine Appearance CLEAR (CLEAR) Urine pH 5.0 (4.5-7.5) Urine Specific [place] > 1.045 (1.000-1.030) Urine Protein TRACE (NEG) Urine Glucose (UA) NEG (NEG) Urine Ketones TRACE (NEG) Urine Occult Blood NEG (NEG) Urine Nitrite NEG (NEG) Urine Bilirubin NEG (NEG) Urine Urobilinogen NEG (NEG) Urine Leukocyte Esterase NEG (NEG) Urine WBC (Auto) 1-5 /hpf (0-5) Urine RBC (Auto) 0-4 /hpf (0-4) Urine Hyaline Casts (Auto) 5-10 /lpf (0-5) Urine Epithelial Cells (Auto) 20-30 /lpf (0-5) Urine Bacteria (Auto) NEG (NEG) Laboratory results reviewed by me Medications Administered Medications (Trade) Dose Ordered Sig/Lewis Route Start Time Stop Time Status Last Admin Dose Admin Sodium Chloride 1,000 ml @ 999 mls/hr Q1H1M STAT IV 01/20/17 21:51 01/20/17 22:51 DC 01/20/17 22:21 999 MLS/HR Ondansetron HCl (Zofran Inj) 4 mg NOW STAT IV 01/20/17 21:51 01/20/17 21:54 DC 01/20/17 22:19 4 MG Morphine Sulfate (MoRPHine SULFATE INJ) 4 mg NOW STAT IV 01/20/17 21:51 01/20/17 21:54 DC 01/20/17 22:20 4 MG Dicyclomine HCl (Bentyl Cap) 10 mg NOW ONCE PO 01/20/17 23:30 01/20/17 23:31 DC 01/20/17 23:45 10 MG Menthol (Nice Velma) 1 velma NOW STAT PO 01/20/17 23:23 01/20/17 23:24 DC 01/20/17 23:45 1 VELMA Amoxicillin/ Clavulanate Potassium (Augmentin Tab) 875 mg ONE ONCE PO 01/20/17 23:30 01/20/17 23:31 DC 01/20/17 23:45 875 MG ED Course 2143: The patient was evaluated in room C8. A complete history and physical exam was performed. 0011: I reevaluated the patient. Discussed results and discharge instructions: He verbalized understanding and agreement. The patient is ready for discharge. Medical Decision Differential diagnosis: Etiologies such as appendicitis, diverticulitis, PUD, biliary pathology, UTI, pancreatitis, obstruction, mesenteric ischemia, aortic pathology, infections, inflammatory bowel disease, renal colic, as well as others were entertained. The patient is a 51 year old white male with a past medical history of anxiety, spinal stenosis, vertigo, gallbladder polyp who presents to the ED with a cc of persistent left flank pain beginning 1100 today. Patient was seen and evaluated at the bedside. Patient had been complaining of some left-sided flank and abdominal pain that began today. Patient states it did occur with eating. Patient states he had a bowel movement yesterday which was normal. Patient is to passing gas. Patient did have a recent history of UTI and had some noted hematuria at this time. Patient was on a course of Keflex which she had completed approximately one week prior. Patient states he does not have similar symptoms. Patient is also had some URI type symptoms as well as some cough and congestion. Patient has phlegm but cannot describe the color. Patient is a nonsmoker per the history. Patient did have blood work as well as a chest x-ray and CT of the abdomen pelvis completed. Patient's blood work did show a mild leukocytosis of 14,000. Patient's kidney function was fairly normal. Patient did have a CT of the abdomen pelvis which show that the patient does have some enteritis but no concern for obstruction or abscess. Chest x-ray was negative. Given the patient's leukocytosis with pain and some infectious symptoms decided to treat the patient with Augmentin. Patient was given medication which she trialed and did well with. Patient was able tolerate viktoria ranjith by mouth. Patient was feeling improved. Patient was given prescriptions for home. Patient was also counseled on advancing his diet and avoiding things like citrus or spicy foods. Patient was given strict follow-up , discharge, return precautions. All questions were answered. Patient was safely discharged home. Medication Reconcilliation Current Medication List: was personally reviewed by me Blood Pressure Screening Patient's blood pressure: Normal blood pressure Blood pressure disposition: Did not require urgent referral Impression Primary Impression: Enteritis Scribe Attestation The scribe's documentation has been prepared under my direction and personally reviewed by me in its entirety. I confirm that the note above accurately reflects all work, treatment, procedures, and medical decision making performed by me. Departure Information Dispostion Home / Self-Care Prescriptions Dicyclomine Hcl (BENTYL) 20 Mg Tab 20 MG PO BID for 7 Days, #14 TAB Prov: Eber Casillas M.D. 01/21/17 Amoxicillin & Pot Clavulanate (Augmentin 875-125 mg) 1 Tab Tab 875 MG PO BID for 7 Days, #14 TAB Prov: Eber Casillas M.D. 01/21/17 Referrals Medardo Priest III, CRNP (PCP) Patient Instructions Abdominal Pain, Deep Coughing, [facility] Additional Instructions Please return to the emergency department if you have worsening or recurrent symptoms not amenable to at-home treatment. Please call for a follow-up appointment with her primary care physician. Please take your medications as prescribed. If you have other concerns and/or complaints please feel free to also call your primary care physician's office or return the ED for further evaluation, management, and treatment. You were found to have an elevated blood pressure today (>120 sytolic or >90 diastolic). Per medicare guidelines, you need to follow up with this blood pressure screening with your Primary Care Physician (PCP). For a new PCP call [phone]. You received narcotic or benzodiazepene medication while in the emergency room today. This is an addictive medication that may cause drowziness as well as constipation. Do not drive, operate heavy machinery, or drink alcohol under the influence of this medication. You may take 600 mg Ibuprofen every 6 hours as needed for pain with food for no more than 2 consecutive days. You may take tylenol 1000mg every 6 hours as needed for pain. You may take motrin and tylenol separately or at the same time. Please take your antibiotics as prescribed. Consider taking a probiotic or eating yogurt while taking it. You have been examined and treated today on an emergency basis only. This is not a substitute for, or an effort to provide, complete comprehensive medical care. It is impossible to recognize and treat all injuries or illnesses in a single emergency department visit. It is therefore important that you follow up closely with [facility]. Call as soon as possible for an appointment. Thank you for your time and consideration. I look forward to speaking with you again soon. Please don't hesitate to call us if you have any questions.
[2017-01-21 00:30] VITALS: BP 141/79; PULSE 87; TEMP 37.7; O2SAT 93
== END 2017-01-21 00:04 | disposition home or self-care (01) ==
LOC: C.EDB 21:28 → C.EDC 01-21 00:04
DX: K52.9 Noninfective gastroenteritis and colitis, unspecified (principal); R10.9 Unspecified abdominal pain; K76.0 Fatty (change of) liver, not elsewhere classified; I10 Essential (primary) hypertension